=== PATIENT | female | born 1980 | race Caucasian/White ===

== ENCOUNTER 2020-11-28 12:40 | Outpatient (REF) | payer OTHER, SELFPAY ==
--- NOTE | ~2020-11-28 | MM_ITS ---
EXAMINATION: MM DIAGNOSTIC DIGITAL BREAST TOMOSYNTHESIS, RIGHT CLINICAL INFORMATION: Short interval follow-up probable benign calcifications right breast upper outer quadrant. The lifetime risk of breast cancer based on the Tyrer-Cuzick Model is 9%. COMPARISON: Mammography: 04/13/2020, 10/07/2019, 04/06/2019, 03/24/2019 (baseline, BI-RADS 0). TECHNIQUE: Digital breast tomosynthesis is performed in both the craniocaudal and mediolateral oblique views along with computer-aided detection (CAD). Synthesized 2D images are generated from the tomosynthesis. Additional magnification right CC and magnification right ML views are obtained. FINDINGS: The breasts are heterogeneously dense, which may obscure small masses (ACR BI-RADS breast composition Category c). The calcifications for follow-up anterior upper outer quadrant are increased in number from the initial diagnostic exam 04/06/2019. There are no definite layering calcifications in the grouped area. There are some incidental layering calcifications more anteriorly upper breast. Stereotactic sampling is recommended. The right breast shows no interval mass or architectural abnormality. The skin contours are smooth. Results are discussed with the patient at time of visit. Results and recommendation called to medical records supervisor (Bernadine) for Dr. Foreman on 11/28/2020. MM/MM tomosynthesis diagnostic RT IMPRESSION: The calcifications for follow-up anterior upper outer right breast are slightly increased in number and show no definite layering in the grouped area. ASSESSMENT: BI-RADS 4: Suspicious (subcategory 4A: Low suspicion for malignancy) RECOMMENDATION: Stereotactic sampling right breast calcifications anterior upper outer quadrant. This patient's information was entered into a reminder system with a target due date for their next mammogram.
== END 2020-11-28 12:41 | disposition home or self-care (01) ==
LOC: HO.MAMMO 12:40
PROVIDERS: PCP Internal Medicine Medical Oncology; Visit Provider Internal Medicine Medical Oncology
DX: R92.1 Mammographic calcification found on diagnostic imaging of breast (principal)
CPT/HCPCS: 77061; 77065

== ENCOUNTER 2020-12-13 09:54 | Outpatient (REF) | payer OTHER, SELFPAY ==
--- NOTE | ~2020-12-13 | MM_ITS ---
EXAMINATION: STEREOTACTIC TOMOSYNTHESIS-GUIDED VACUUM-ASSISTED BREAST BIOPSY, RIGHT SPECIMEN RADIOGRAPH, RIGHT POST PROCEDURE DIGITAL MAMMOGRAM, RIGHT CLINICAL INFORMATION: Increased tightly grouped calcifications anterior upper outer right breast, possibly fibroadenomatous change. COMPARISON: Mammography 11/28/2020, 12/13/2019, 10/07/2019, 04/06/2019, 03/24/2019. TECHNIQUE/PROCEDURE: Informed consent was obtained from the patient after discussion of the benefits, risks, and alternatives to biopsy today. Patient appeared to understand. Gave opportunity for questions. Patient signed consent form. BIOPSY TABLE: [employer] Prone Biopsy System. LESION: Tightly grouped calcifications anterior upper outer right breast. LOCAL ANESTHESIA: 5 mL 1% lidocaine; 10 mL 1% lidocaine with epinephrine. DERMATOTOMY: Single skin nestor dermatotomy performed. NEEDLE: [employer] 9-gauge vacuum assisted core biopsy device. APPROACH: craniocaudal. TARGETING: Digital breast tomosynthesis used for targeting. CORES: 8. CLIP: [employer] Buckle-shaped marker. SPECIMEN RADIOGRAPH: Specimen radiograph is taken in separate room using digital mammography. The index calcifications are in the excised cores. There are numerous calcifications in the cores. POST PROCEDURE UNILATERAL RIGHT MAMMOGRAPHY: The post biopsy mammogram is performed in separate room using separate digital mammography equipment from the biopsy procedure. 3D CC and 2D ML views are provided. The breasts are heterogeneously dense, which may obscure small masses (breast composition category: c). The clip marker is in position. The calcifications are markedly decreased at the biopsy site. No gross hematoma. The patient tolerated the procedure well. No immediate complications. Home instructions reviewed with the patient. Final pathology results are pending. MM/MM stereotactic biopsy RT IMPRESSION: 1. Digital tomosynthesis-guided core biopsy right breast with clip placement. 2. Specimen radiograph taken and post procedure mammogram. There is satisfactory positioning of the biopsy clip. 3. Final pathology results pending. An addendum report will be issued.
== END 2020-12-13 09:55 | disposition home or self-care (01) ==
LOC: HO.MAMMO 09:54
PROVIDERS: Visit Provider Surgery
DX: R92.1 Mammographic calcification found on diagnostic imaging of breast (principal)
CPT/HCPCS: 19081; 88305; A4648

== ENCOUNTER → 2020-12-20 08:37 | Outpatient (BNVA) | payer OTHER, SELFPAY | PROVIDERS: PCP Internal Medicine Medical Oncology; Referring Provider Internal Medicine Medical Oncology; Visit Provider Surgery | DX: R92.1 Mammographic calcification found on diagnostic imaging of breast (principal) ==

== ENCOUNTER 2021-01-04 09:05 | Day surgery (SDC) | payer OTHER, SELFPAY ==
[2020-12-31 14:45] VITALS: BMI 26.9
--- NOTE | 2021-01-02 12:53 | HO.ANESPROP2 ---
Documented by User: Aury Fowler 01/02/21 12:54 HPI - Anesthesia Eval Consult details Narrative: 40yo F for Right Breast Biopsy Needle Localization, Lumpectomy PMFSH Active Problems Active Problems: All Active Problems (Updated 12/20/20 @ 09:05 by Julian Desouza MD) Atypical hyperplasia of right breast (Acute) Breast calcification, right (Acute) Past Medical History Medical History Atypical hyperplasia of right breast Breast calcification, right Family History Family History Maternal Grandmother Lung cancer Surgical History Surgical History Hx of wisdom tooth extraction No pertinent past surgical history Social History Social History Do you presently have visiting nurse or other home services: No Alcohol intake: never Smoking Status: Never smoker Use of substances other than those prescribed or required for medical reasons: No Have you been hit, kicked, punched, or otherwise hurt by someone within the past year? If so, by whom?: No Are you DNR?: No Advance Directives Information Provided: No Recently lost weight without trying: No Eating poorly because of decreased appetite: No Nutrition Risks: No Nutritional Risk Patient : No Poor oral hygiene: No Meds Allergies Allergy/AdvReac Type Severity Reaction Status Date / Time No Known Allergies Allergy Mild NOT Verified 01/04/21 09:36 APPLICABLE Home Medications Medication Instructions Recorded Confirmed Last Taken Type No Known Home Meds 12/13/20 12/31/20 Unknown History Exam Exam Date and Time: January 02, 2021 1253 Height,Weight and Vital Signs: Height 5 ft 4 in Weight 71 kg Assessment and Plan Assessment Anesthesia Assessment: Chart Reviewed Documented by User: Arabella Snyder 01/04/21 10:16 PMFSH Past Medical History Medical History Atypical hyperplasia of right breast Breast calcification, right Family History Family History Maternal Grandmother Lung cancer Family history of problems with anesthesia: No Surgical History Surgical History Hx of wisdom tooth extraction No pertinent past surgical history History of Problems with Anesthesia: No Social History Social History Do you presently have visiting nurse or other home services: No Alcohol intake: never Smoking Status: Never smoker Use of substances other than those prescribed or required for medical reasons: No Have you been hit, kicked, punched, or otherwise hurt by someone within the past year? If so, by whom?: No Are you DNR?: No Advance Directives Information Provided: No Recently lost weight without trying: No Eating poorly because of decreased appetite: No Nutrition Risks: No Nutritional Risk Patient : No Poor oral hygiene: No Meds Allergies Allergy/AdvReac Type Severity Reaction Status Date / Time No Known Allergies Allergy Mild NOT Verified 01/04/21 09:36 APPLICABLE Home Medications Medication Instructions Recorded Confirmed Last Taken Type No Known Home Meds 12/13/20 12/31/20 Unknown History Exam Height,Weight and Vital Signs: Vital Signs Temp Pulse Resp BP Pulse Ox 01/04/21 09:36 98.2 F 72 16 169/95 H 99 Pertinent Lab Results Pertinent Lab Results: Lab Results 01/04/21 Range/Units 09:29 Urine Test NEGATIVE (NEGATIVE) Airway Mallampati Class: II TM Dist: >3cm Neck ROM: Full Loose/Missing/Broken Teeth: Yes (Molars missing) Heart: RRR Lungs: CTAB Assessment and Plan Assessment Anesthesia Assessment: Anesthesia Plan Discussed and Chart Reviewed Final Anesthetic Review NPO: Yes ASA Class: I Final Preanesthetic Review: No Changes in Pt Med Stat, Meds/Allgs Chart Reviewed, Consent Obtained/Reviewed and Anes Risks/Benef Reviewed Patient Risk: Low Procedure Risk: Low Assessment/Block/Sedation in SS: Assess/Block/Sedation-SS Anesthetic Plan Anesthetic Plan: GA Disposition: Standard PACU
[2021-01-04] VITALS (7 sets, daily range): BP systolic 97–169; BP diastolic 54–95; PULSE 62–85; RESP 16; TEMP 36.6–36.8; O2SAT 94–100
--- NOTE | ~2021-01-04 | MM_ITS ---
EXAMINATION: MM MAMMOGRAM GUIDED NEEDLE LOCALIZATION BREAST, RIGHT MM NEEDLE LOCALIZATION SPECIMEN FROM THE RIGHT BREAST CLINICAL INFORMATION: Right breast/epithelial atypia, focal on stereotactic biopsy 12/13/2020. COMPARISON: Mammography 12/13/2020, 11/28/2020, 04/13/2020, 10/07/2019, 04/06/2019, 03/24/2019 TECHNIQUE NEEDLE LOC: Proper informed consent is obtained from the patient after discussion of the procedure, potential risks and complications, and alternatives including declining the procedure today. Patient was given an opportunity for questions. The patient appeared to understand. The patient consented to the procedure and signed the consent form. GUIDANCE: Digital mammography. APPROACH: Lateral Medial. TARGET: Buckle-shaped clip marker upper outer quadrant right breast. ANESTHESIA: lidocaine 1%: 4 mL. LOCALIZATION MARKER: [place] [employer], 5 cm length. The skin is prepped and local anesthesia administered. The needle is positioned and position assessed with mammography. The wire is hooked into position. [place] needle protector placed. The patient tolerated the procedure well and had no immediate complication. Procedure findings discussed with Dr. Desouza. TECHNIQUE SPECIMEN RADIOGRAPH: Imaging of the excised specimen is performed using digital mammography in 2 views. FINDINGS SPECIMEN RADIOGRAPH: The specimen shows the needle and hookwire are delivered intact. The biopsy clip marker is identified adjacent to the needle and the specimen. Results were called to Dr. Julian Desouza in the operating room at the time of imaging. MM/MM needle loc RT IMPRESSION: 1. Status post right breast needle localization with wire hooked into position. 2. Post operative specimen radiograph obtained.
--- NOTE | 2021-01-04 09:33 | MHC.SHP ---
Pre-Procedural Eval Section B Chief Complaint: Atypical hyperplasia of right breast Allergies: Allergies Allergy/AdvReac Type Severity Reaction Status Date / Time No Known Allergies Allergy Mild NOT Verified 12/20/20 08:47 APPLICABLE Plan I have reviewed the history and physical and performed a pertinent physical examination on my patient. No changes have occurred unless specified.
[2021-01-04 09:36] LABS: UPreg QC Valid YES; Urine Pregnancy NEGATIVE (NEGATIVE)
[2021-01-04] MEDS: Lactated Ringers 1,000 ML 100 ML IVCONT (09:57)
--- NOTE | 2021-01-04 13:32 | W.PM.OPN ---
Operative Note Operative Note Date of Service: 01/04/21
--- NOTE | 2021-01-04 13:34 | W.PM.OPN ---
Operative Note Operative Note Date of Service: 01/04/21 Narrative: Preop diagnosis: Intraductal papilloma, right breast Postop diagnosis: Intraductal papilloma, right breast Procedure: Lumpectomy, right breast with needle localization Surgeon: Julian Desouza MD Geosciences Associate Professor: GARY Castellanos student The patient is a 40-year-old female who had undergone right breast biopsy which showed intraductal papilloma. She was therefore recommended to undergo lumpectomy to rule out associated high-grade pathology like DCIS. She understood the technique of this procedure of lumpectomy with needle localization. She was aware of the risks, benefits, and alternatives She was brought to the operating room placed supine on table under general anesthesia via laryngeal mask airway. The right breast was prepped draped in the usual sterile fashion. A surgical time-out was done. The patient received cefazolin 2 g IV preoperatively I had reviewed her needle loc films with the radiologist Dr. Smith prior to the procedure. The localizing needle was seen entering the lateral aspect of right breast going medially. I infiltrated this area with lidocaine 1 %. An incision was made on the skin using blade 15 tangential to the entrance of the needle. This was carried down through the full-thickness of the skin using electro cautery until the we entered breast tissue. I proceeded to sharply divide the breast tissue around the localizing needle with the curved Reynoso scissors. I proceeded with this dissection to include significant amounts of breast tissue surrounding the needle. We continued to dissect circumferentially, palpating around the specimen periodically to make sure that we were taking enough tissue surrounding the localizing needle. I proceeded to dissect posteriorly as well. I proceeded to jeromy the lateral aspect as well as the superior aspect of the specimen with sutures. We had to cauterize periodically in view of some oozing. We continued to dissect slowly all around the surrounding breast tissue of the localizing needle until we were able to completely deliver the specimen. This was sent for immediate re-ray. I then irrigated the excision biopsy site. I cauterized oozing areas. I observed for hemostasis. Once hemostasis was ensured, I proceeded to reappose the deep breast tissue with interrupted simple Dexon 3-0 sutures. Skin closure was achieved with subcuticular running Dexon 4-0 stitch. I infiltrated the area with Marcaine 0.5% postop analgesia. Steri-Strips and dressings were applied. We waited until we received a phone call from the radiologist stating that the re-ray images confirmed the presence of the localizing clip and the entire localizing needle was intact. There appeared to have good margins around the needle radiographically. The procedure was then completed. The patient tolerated the procedure well. There were no complications noted. Initial and final counts of sponges and instruments were correct. Estimated blood loss about 40 cc. She was extubated without difficulty and transferred to the recovery room with stable vital signs.
--- NOTE | 2021-01-04 13:46 | P.BOP_ITS ---
Brief Operative Note Date of Service: 01/04/21 Pre-op diagnosis: Intraductal papilloma right breast Post-op diagnosis: same Procedure: Lumpectomy with needle localization right breast Surgeon: Julian Desouza MD Anesthesia: GLMA Was an Front Office Administrator used for this Procedure?: No Estimated blood loss (mL): 40 Pathology: other (Lumpectomy ) Condition: stable Disposition: PACU
[2021-01-04] MEDS: Ketorolac Tromethamine 15 MG/ML VIAL IVPUSH (14:00)
== END 2021-01-04 15:41 | disposition home or self-care (01) ==
PROVIDERS: Nurse Practitioner; PCP Internal Medicine Medical Oncology; Visit Provider Surgery
PROC: (CPT 19301; principal; 2021-01-04 11:30)
PROC: (CPT 19301; 2021-01-04 11:30)
DX: D24.1 Benign neoplasm of right breast (principal)
CPT/HCPCS: 19301; 19281; 81025; 88307; 88329; A4648; J0690; J1100; J1885; J2250; J2405; J3010

== ENCOUNTER → 2021-01-16 12:17 | Outpatient (BNVA) | payer OTHER, SELFPAY | PROVIDERS: PCP Internal Medicine Medical Oncology; Visit Provider Surgery ==

== ENCOUNTER 2021-12-23 14:30 | Outpatient (REF) | payer OTHER, SELFPAY ==
--- NOTE | ~2021-12-23 | MM_ITS ---
EXAMINATION: MM SCREENING DIGITAL BREAST TOMOSYNTHESIS, BILATERAL CLINICAL INFORMATION: Screening. Asymptomatic. Right stereotactic biopsy 12/13/2020 with subsequent excision 01/04/2021 (patchy flat epithelial atypia, no carcinoma, margins negative. Background fibroadenoma and fibrocystic changes). COMPARISON: Mammography: 01/04/2021, 12/13/2020, 11/28/2020, 04/13/2020, 10/07/2019, 04/06/2019, 03/24/2019. TECHNIQUE: Digital breast tomosynthesis is performed in both the craniocaudal and mediolateral oblique views along with computer-aided detection (CAD). Synthesized 2D images are generated from the tomosynthesis. FINDINGS: The breasts are heterogeneously dense, which may obscure small masses (ACR BI-RADS breast composition Category c). Breast tissue composition borders on average fibroglandular. There are post therapy changes on the right with minor scarring mid upper breast. Neither breast shows significant mass or architectural abnormality or abnormal calcifications. The axilla and skin contours are unremarkable. No significant changes. MM/MM tomosynthesis screening BI IMPRESSION: -No mammographic evidence of malignancy. -Minor benign scarring right breast. ASSESSMENT: BI-RADS 2: Benign RECOMMENDATION: Routine annual mammography screening. This patient's information was entered into a reminder system with a target due date for their next mammogram.
== END 2021-12-23 14:31 | disposition home or self-care (01) ==
LOC: HO.MAMMO 14:30
PROVIDERS: PCP Internal Medicine Medical Oncology; Visit Provider Internal Medicine Medical Oncology
DX: Z12.31 Encounter for screening mammogram for malignant neoplasm of breast (principal)
CPT/HCPCS: 77063; 77067

== ENCOUNTER 2023-01-08 07:48 | Outpatient (REF) | payer OTHER, SELFPAY ==
[2023-01-08 11:20] LABS: MANUAL DIFF FLAG NO
[2023-01-08 11:30] LABS: Basophils Absolute Auto 0.1 X10*3/uL (0.0-0.2); Basophils Percent Auto 1.9 % (0-2); Eosinophils Absolute Auto 0.2 X10*3/uL (0.0-0.4); Eosinophils Percent Auto 3.4 % (0-4); Hematocrit 30.7 % (37.0-47.0); Hemoglobin 9.2 g/dl (12.0-16.0); Imm Gran Abs Auto 0.02 X10*3/uL (0.00-0.03); Imm Gran Pct Auto 0.3 % (0.0-0.4); Lymphocytes Percent Auto 31.3 % (20-40); Mean Corpuscular Hemoglobin 22.4 pg (27.0-33.0); Mean Corpuscular Volume 74.9 fL (80.0-98.0); Mean Platelet Volume 9.5 fL (9.4-12.3); Monocytes Absolute Auto 0.4 X10*3/uL (0.1-1.2); Monocytes Percent Auto 6.8 % (2-11); Neutrophils Absolute Auto 3.6 x10*3/uL (2.0-8.3); Neutrophils Percent Auto 56.3 % (45-73); Platelet Count 453 X10*3/uL (160-400); Red Cell Distribution Width 16.8 % (11.0-16.0); White Blood Count 6.5 X10*3/uL (4.8-10.8)
[2023-01-08 11:42] LABS: Alanine Aminotransferase 13 U/L (0-31); Albumin Level 4.3 g/dL (3.5-5.0); Alkaline Phosphatase 62 U/L (39-117); Anion Gap 10 (12-20); Aspartate Amino Transferase 16 U/L (5-31); Bilirubin Total 0.5 mg/dL (0.0-1.0); Blood Urea Nitrogen 12 mg/dL (9-16); Calcium 9.7 mg/dL (8.4-10.2); Carbon Dioxide 24 mmol/L (22-29); Chloride 107 mmol/L (96-108); Cholesterol 217 mg/dL; Estimated Glomerular Filt Rate > 60; Glucose Fasting 93 mg/dL (60-99); HDL Cholesterol 62 mg/dL; LDL Cholesterol Calculated 141 mg/dl; Potassium 4.6 mmol/L (3.3-5.1); Sodium 136 mmol/L (135-145); Total Protein 6.9 g/dL (6.5-8.0); Triglycerides 70 mg/dL
== END 2023-01-08 07:49 | disposition home or self-care (01) ==
LOC: HO.HMGCLDS 07:48
PROVIDERS: PCP Internal Medicine Medical Oncology; Visit Provider Internal Medicine Medical Oncology
DX: E66.3 Overweight (principal); F41.9 Anxiety disorder, unspecified; Z91.09 Other allergy status, other than to drugs and biological substances
CPT/HCPCS: 36415; 80053; 80061; 85025

== ENCOUNTER 2023-05-14 08:58 | Outpatient (REF) | payer OTHER, SELFPAY | END 2023-05-14 08:59 | disposition home or self-care (01) | LOC: HO.MAMMO 08:58 | PROVIDERS: PCP Internal Medicine Medical Oncology; Visit Provider Internal Medicine Medical Oncology | DX: Z12.31 Encounter for screening mammogram for malignant neoplasm of breast (principal) | CPT/HCPCS: 77063; 77067 ==

== ENCOUNTER → 2023-05-14 09:00 | Outpatient (BNV) | payer OTHER, SELFPAY | PROVIDERS: PCP Internal Medicine Medical Oncology; Visit Provider Radiology Diagnostic Radiology | DX: Z12.31 Encounter for screening mammogram for malignant neoplasm of breast (principal) | CPT/HCPCS: 77063; 77067 ==

== ENCOUNTER 2023-07-08 06:34 | Emergency (ER) | payer OTHER, SELFPAY ==
[2023-07-08] VITALS (15 sets, daily range): BP systolic 132–178; BP diastolic 73–94; PULSE 59–82; RESP 10–32; TEMP 36.1–37.6; O2SAT 92–100; BMI 60.5
--- NOTE | ~2023-07-08 | US_ITS ---
EXAMINATION: US PELVIS CLINICAL INFORMATION: Vaginal bleeding and anemia COMPARISON: None available. TECHNIQUE: Ultrasound of the pelvis is performed using both transabdominal and transvaginal transducers along with Doppler. Transvaginal imaging is performed due to inadequate visualization transabdominally. FINDINGS: Uterus: The uterus is anteverted, anteflexed and measures 10.5 x 6.1 x 7.4 cm. There are at least 3 hypoechoic areas consistent with fibroid. The largest along the posterior body of uterus measures 5.0 x 3.5 x 3.9 cm. A small lesion along the right superior fundus measures 1.2 x 1.2 x 1.9 cm. Third lesion along the right upper lateral uterus measures 2.6 x 2.5 x 3.1 cm. No additional lesions seen The double wall endometrial thickness measures 0.4 cm. Adnexa: Both ovaries are visualized. There is normal color flow to the adnexa. There is no ovarian torsion. There is no pelvic ascites or fluid collection. Right ovary measures 4.3 x 3.6 x 2.7) cm. Volume 22.7 mL. There is anechoic cyst measuring 2.9 x 2.3 x 2.2 cm. Left ovary measures 4.1 x 2.6 x 2.7 cm. Volume 15.1 cm. There is a complex anechoic cyst with internal septation measuring 2.4 x 1.7 x 2.4 cm. There is no free fluid in cul-de-sac. US/US pelvic and transvaginal IMPRESSION: Several uterine fibroids. Complex left ovary and a simple right ovary cyst.
--- NOTE | ~2023-07-08 | CT_ITS ---
EXAMINATION: CT ELBOW WITHOUT CONTRAST, LEFT CLINICAL INFORMATION: Fall. Pain. Fracture. COMPARISON: Left elbow and forearm radiographs done earlier the same day. TECHNIQUE: Contiguous axial CT images of the left elbow were obtained without contrast. Multiplanar reformats were provided and reviewed. This CT examination was performed using dose optimization techniques as appropriate, variously including the following: *Automated exposure control *Adjustment of mA and/or kV according to patient size (this includes techniques or standardized protocols for targeted exams where dose is matched to indication/reason for exam; i.e. extremities or head) *Use of iterative reconstruction technique DOSE: 125 mGy-cm. FINDINGS: Comminuted fracture of the distal humerus with an oblique component which extends from the medial cortex to the central aspect of the articular surface. The fracture gap measures up to 0.9 cm in ML dimension along the articular surface. Distal displacement of the lateral fracture fragment measuring up to 1.0 cm in craniocaudal dimension along the articular surface. There is comminution of the fracture with a transverse fracture line through the base of the capitellum, as well as an additional transverse fracture line through the supracondylar region medially. Ventral and proximal dislocation of the radial head in relation to the capitellum without a definite radial head fracture. Comminuted and displaced proximal ulnar diametaphyseal fracture with a dominant oblique component as well as a resultant posterior butterfly fracture fragment which measures up to 8.2 cm in length. The main fracture gap measures up to 1.2 cm in greatest dimension. Moderate elbow joint effusion with surrounding soft tissue swelling. The visualized muscles and tendons are grossly intact, however, evaluation severely limited on CT examination. CT/CT elbow LT wo IV con IMPRESSION: 1. Comminuted fracture of the distal humerus with an oblique component extending from the medial cortex to the central aspect of the articular surface. The fracture gap measures up to 0.9 cm along the articular surface. Distal displacement of the lateral fracture fragment measuring up to 1.0 cm along the articular surface. 2. Comminuted and displaced proximal ulnar diametaphyseal fracture with a dominant oblique component as well as a resultant posterior butterfly fracture fragment. 3. Ventral and proximal dislocation of the radial head in relation to the capitellum without a definite radial head fracture. 4. Moderate elbow joint effusion with surrounding soft tissue swelling.
--- NOTE | ~2023-07-08 | XR_ITS ---
EXAMINATION: XR ELBOW, LEFT CLINICAL INFORMATION: Left elbow fracture. COMPARISON: CT and x-ray Left elbow 07/08/2023 TECHNIQUE: AP, lateral, and oblique views of the left elbow. FINDINGS: Again visualized without contrast left elbow exam reveals comminuted fracture distal humerus extending to the articular surface better seen on CT exam. Oblique comminuted fracture proximal ulnar metaphyseal with mild displacement. Mild anterior dislocation of the radial head XR/XR elbow LT min 3V IMPRESSION: 1. Comminuted fracture distal humerus with intra-articular extension. 2. Oblique comminuted fracture proximal ulnar metaphysis with mild displacement. 3. Mild anterior dislocation of radial head 4. No additional fractures seen.
--- NOTE | ~2023-07-08 | XR_ITS ---
EXAMINATION: XR ELBOW, LEFT XR FOREARM, LEFT CLINICAL INFORMATION: Fall injury. COMPARISON: None available. TECHNIQUE: AP, lateral, and oblique views of the left elbow. AP and lateral views of the left forearm were obtained. XR/XR forearm LT 2V FINDINGS/IMPRESSION: The study is somewhat limited, as no true lateral views are submitted. There are comminuted fractures of the ulna and distal humerus, with dislocation of the radial head. The comminuted ulnar fracture involves the proximal diaphysis. There is approximately 40 degree medial angulation of the main distal fragment relative to proximal fragment. The distal fragment is displaced medially approximately one half bone shaft's width relative to the proximal fragment. The fracture fragments may override approximately 1-1.5 cm, although exact measurement is somewhat difficult. There is a complex, comminuted intercondylar fracture of the humerus. The fracture fragments appear displaced up to approximately 0.6 cm. The radial head is dislocated laterally relative to the distal humerus. A component of the dislocation is also probably anterior, although this is difficult to ascertain, as no true lateral view is submitted. Question nondisplaced fracture at the dorsal aspect of the distal radial metaphysis seen on one view only.
--- NOTE | ~2023-07-08 | XR_ITS ---
EXAMINATION: XR ELBOW, LEFT XR FOREARM, LEFT CLINICAL INFORMATION: Fall injury. COMPARISON: None available. TECHNIQUE: AP, lateral, and oblique views of the left elbow. AP and lateral views of the left forearm were obtained. XR/XR elbow LT 2V FINDINGS/IMPRESSION: The study is somewhat limited, as no true lateral views are submitted. There are comminuted fractures of the ulna and distal humerus, with dislocation of the radial head. The comminuted ulnar fracture involves the proximal diaphysis. There is approximately 40 degree medial angulation of the main distal fragment relative to proximal fragment. The distal fragment is displaced medially approximately one half bone shaft's width relative to the proximal fragment. The fracture fragments may override approximately 1-1.5 cm, although exact measurement is somewhat difficult. There is a complex, comminuted intercondylar fracture of the humerus. The fracture fragments appear displaced up to approximately 0.6 cm. The radial head is dislocated laterally relative to the distal humerus. A component of the dislocation is also probably anterior, although this is difficult to ascertain, as no true lateral view is submitted. Question nondisplaced fracture at the dorsal aspect of the distal radial metaphysis seen on one view only.
--- NOTE | ~2023-07-08 | XR_ITS ---
EXAMINATION: XR ELBOW, LEFT CLINICAL INFORMATION: Status post reduction. COMPARISON: Left elbow 07/08/2023 at 6:50 AM. TECHNIQUE: Single lateral view of the left elbow. FINDINGS: Comminuted fracture proximal ulna and a distal humeral fracture with intra-articular extension has been stabilized with left elbow in a hard cast. XR/XR elbow LT 2V IMPRESSION: Stabilized comminuted proximal ulnar and distal humeral fractures with intra-articular extension. The left elbow is in a hard cast. Patient is status post reduction.
--- NOTE | 2023-07-08 07:17 | ED.EXTPRO ---
HPI - Extremity Problem General Chief complaint: Extremity Injury, Upper Stated complaint: fall l arm inj Time Seen by Provider: 07/08/23 07:14 Source: patient Mode of arrival: ambulatory Limitations: no limitations History of Present Illness HPI Narrative: 42-year-old female otherwise healthy presented with left elbow pain after she fell. Patient was going down the hill on icy sidewalk lost her balance fell backward tried to use the fall by hyperextending her both elbow complaining of left elbow pain and deformity. Patient is a right-handed. Related Data Previous Rx's Medication Instructions Recorded ibuprofen 600 mg tablet 600 mg PO Q6H PRN pain #30 tabs 01/04/21 oxycodone-acetaminophen 5 mg-325 1 - 2 tab PO Q4-6H PRN pain #30 01/04/21 mg tablet (Percocet) tabs oxycodone 5 mg tablet 5 mg PO Q8H PRN pain #14 tabs 07/08/23 Allergies Allergy/AdvReac Type Severity Reaction Status Date / Time No Known Allergies Allergy Mild NOT Verified 01/04/21 09:36 APPLICABLE Review of Systems Review of Systems: All other systems are reviewed and are negative Constitutional: Reports as per HPI and Reports no additional constitutional complaints Eyes: Reports as per HPI and Reports no additional eye complaints Reports system reviewed and no additional complaints, except as documented Cardiovascular: Reports as per HPI and Reports no additional cardiovascular complaints Respiratory: Reports as per HPI and Reports no additional respiratory complaints Gastrointestinal: Reports as per HPI and Reports no additional gastrointestinal complaints Genitourinary: Reports no additional female genitourinary complaints Musculoskeletal: Reports no additional musculoskeletal complaints Skin/Breast: Reports system reviewed and no additional complaints, except as docu Psychiatric: Reports no additional psychiatric complaints Endocrine: Reports no additional endocrine complaints Hematologic/Lymphatic: Reports no additional hematologic/lymphatic complaints Allergic/Immunologic: Reports no additional allergic/immunologic complaints Reports system reviewed and no additional complaints, except as documented and Reports Abnormal speech present! [facility] Past Medical History Medical History Atypical hyperplasia of right breast Breast calcification, right Surgical History Hx of wisdom tooth extraction No pertinent past surgical history Family History Family History Maternal Grandmother Lung cancer Social History Do you presently have visiting nurse or other home services: No Alcohol intake: never Physical Exam Vital Signs: Vital Signs: Last Vital Signs Temp 99.6 F 07/08/23 13:10 Pulse 72 07/08/23 13:10 Resp 17 07/08/23 13:10 BP 158/84 H 07/08/23 13:10 Pulse Ox 100 07/08/23 12:16 O2 Del Method Room Air 07/08/23 12:16 Oxygen Flow Rate 2 07/08/23 10:46 BMI result Body Mass Index 60.5 Vital signs have been reviewed and appear to be correct. Blood pressure elevated. Heart rate normal. Respiratory rate normal. Temperature normal. Oxygen saturation normal. Appearance: Alert. Oriented X3. No acute distress. Head: Normal external exam. Normocephalic. Atraumatic. No Srivastava signs noted. No raccoon eyes noted Eyes: PERRLA. EOMI. Conjunctiva and sclera normal. Eyelids normal. ENT: TM's Normal. Pharynx normal. Uvula midline. Moist mucous membranes. No trismus noted. No drooling noted. No muffled voice noted. Neck: Normal inspection. Neck supple. FROM. No adenopathy. Thyroid Normal. No meningeal signs. No neck mass noted. CVS: Normal heart rate and rhythm. Heart sound normal. No murmurs noted. Pulses normal throughout. Respiratory: No respiratory distress. Painless inspiration. Breath sounds normal. No wheezes/rales/rhonchi noted. Chest nontender. No accessory muscle usage noted or decreased air movement noted. Abdomen: Soft and nontender. Bowel sounds normal in all 4 quadrants. No distention noted. No organomegaly noted. No visible injury noted. Back: No CVA tenderness. Full range of motion noted. Skin: Skin warm and dry. Normal skin color. Normal skin turgor. No rashes/lesions/lacerations noted. Extremities: left elbow: Increased tenderness and deformity of the left elbow, neurovascularly intact, left elbow is held in extension position with very painful range of motion. Neuro: Oriented X 3. Cranial nerve exam: II-XII are grossly intact No motor deficit. No sensory deficit. Reflexes normal. Course Reevaluation(s) Reevaluation #1: Routine lab before conscious sedation showed severe ischemia patient stated that she has been having heavy menstruation for the past 4 weeks now it is slowing down patient do not have web site specialist to follow up with will provide Dr. Valdes's office information. because patient Now is reporting exertional dyspnea will transfuse 1 unit of blood And follow-up with Dr. Valdes. Left elbow reduction patient will follow-up with Dr. Luque. Time: 10:13 Reevaluation #2: The case was discussed with Dr. Valdes who reviewed the ultrasound patient was given his office information and will follow-up with him as an outpatient patient after blood transfusion is hemodynamically stable. Patient also will follow-up with Dr. Luque for her left elbow fracture management. Patient was provided oxycodone for pain control. Continue with left elbow immobilization Time: 14:20 Medications Administered Discontinued Medications Generic Name Dose Route Start Last Admin Trade Name Freq PRN Reason Stop Dose Admin Hydromorphone HCl 2 mg 07/08/23 07:26 07/08/23 07:53 Hydromorphone Hcl 2 Mg/Ml Vial IM 07/08/23 07:27 2 mg ONCE ONE Administration Protocol Hydromorphone HCl 2 mg 07/08/23 07:42 07/08/23 07:54 Hydromorphone Hcl 2 Mg/Ml Vial IVPUSH 07/08/23 07:43 Not Given ONCE ONE Protocol Hydromorphone HCl 1 mg 07/08/23 08:45 07/08/23 09:01 Hydromorphone Hcl 1 Mg/Ml Syringe IVPUSH 07/08/23 08:46 1 mg ONCE ONE Administration Protocol Hydromorphone HCl 1 mg 07/08/23 12:02 07/08/23 12:16 Hydromorphone Hcl 1 Mg/Ml Syringe IVPUSH 07/08/23 12:03 1 mg ONCE ONE Administration Protocol Sodium Chloride 100 mls @ 100 mls/hr 07/08/23 10:16 07/08/23 13:04 Ns IV 07/08/23 11:15 100 mls/hr ONCE ONE Administration Propofol 100 mg 07/08/23 10:02 07/08/23 11:01 Propofol 200 Mg/20 Ml Vial IVPUSH 07/08/23 10:03 100 mg ONCE ONE Administration Medical Decision Making Differential Diagnosis Differential Diagnoses: The differential diagnosis associated with the presentation includes ( mechanical fall, severe anemia, electrolyte abnormality, elbow dislocation, elbow fracture.) Admission/Observation Consideration of admission/observation: Escalation of care including admission/observation considered Consult Healthcare Provider Management of the patient was discussed with: Gin Operator ( Dr. Valdes / Dr. Luque) Lab Data MDM Lab Attestation statement: I reviewed the patient's lab results. 07/08/23 09:16 07/08/23 09:16 Labs: Lab Results 07/08/23 07/08/23 Range/Units 09:16 11:06 WBC 20.5 H (4.8-10.8) X10*3/uL RBC 3.57 L (4.20-5.50) X10*6/uL Hgb 7.1 L D (12.0-16.0) g/dl Hct 24.6 L (37.0-47.0) % MCV 68.9 L (80.0-98.0) fL MCH 19.9 L (27.0-33.0) pg MCHC 28.9 L (31.0-35.0) g/dl RDW 18.0 H (11.0-16.0) % Plt Count 296 D (160-400) X10*3/uL MPV 9.8 (9.4-12.3) fL Immature Gran % (Auto) 0.6 H (0.0-0.4) % Neut % (Auto) 91.0 H (45-73) % Lymph % (Auto) 4.5 L (20-40) % [place] % (Auto) 3.3 (2-11) % Eos % (Auto) 0.1 (0-4) % Baso % (Auto) 0.5 (0-2) % Lymph # (Auto) 0.9 L (1.2-4.9) X10*3/uL [place] # (Auto) 0.7 (0.1-1.2) X10*3/uL Eos # (Auto) 0.0 (0.0-0.4) X10*3/uL Baso # (Auto) 0.1 (0.0-0.2) X10*3/uL Abs Immat Gran (auto) 0.13 H (0.00-0.03) X10*3/uL Absolute Neuts (auto) 18.6 H (2.0-8.3) x10*3/uL Absolute Nucleated RBC 0.000 (0.0-0.012) X10*3/uL Nucleated RBC % (auto) 0.0 (0.0-0.2) /100WBC Smear Tech's Comments VERIFIED Sodium 138 (135-145) mmol/L Potassium 4.0 (3.3-5.1) mmol/L Chloride 108 (96-108) mmol/L Carbon Dioxide 24 (22-29) mmol/L Anion Gap 10 L (12-20) BUN 13 (9-16) mg/dL Creatinine 0.66 (0.5-1.4) mg/dL Estim Creat Clear Calc 166.2 Estimated GFR > 60 Random Glucose 131 H (60-115) mg/dL Calcium 9.5 (8.4-10.2) mg/dL Blood Type O Positive Antibody Screen NEGATIVE Crossmatch See Detail Independent Interpretation I performed an independent interpretation of an: Plain X-Ray ( left elbow x-ray: Fracture dislocation) and Ultrasound ( uterine line fibroids, complex left ovarian cyst) Radiology Impression Discussion of test interpretation with radiology: I have reviewed the radiologist's reading. Procedures Procedural Sedation Indication: fracture/dislocation reduction ( of left elbow done by Dr. Luque) ASA Class: I Mallampati Class: I Time of Last PO Intake: 06:00 Preparation: property assessment monitor applied, pulse oximeter, capnometry used, supplemental O2 applied, reversal agents at bedside, suction/airway equipment at bedside and IV secured IV Propofol dose (mg): 100 Patient Tolerated Procedure: well Complications: none Critical Care Time Critical Care Time Critical Care Time: Yes Total Critical Care Time: 60 Attestation: I spent 60 minutes providing critical care service to the patient, this including time spent at the bedside to evaluate the patient, reassess the patient, monitoring vital signs, review labs, and radiographic studies, counseling the patient/family, discussing the case with consultants, disposition the patient. Discharge Plan Discharge Clinical Impression: Menorrhagia, Anemia Closed fracture dislocation of elbow Qualifiers: Encounter type: initial encounter Laterality: left Qualified Code(s): S42.402A - Unspecified fracture of lower end of left humerus, initial encounter for closed fracture Patient Disposition: Home, Self-Care Instructions: Elbow Fracture (ED), Anemia (ED) Additional Instructions: follow-up with Dr. Valdes for your vaginal bleeding. Follow-up with Dr. Luque to manage 2 left elbow fracture. Prescriptions: New oxycodone 5 mg tablet 5 mg PO Q8H PRN (Reason: pain) Qty: 14 0RF Rx Instructions: Partial Fill upon patient request. No Action oxycodone-acetaminophen [Percocet] 5-325 mg tablet 1 - 2 tab PO Q4-6H PRN (Reason: pain) Qty: 30 0RF ibuprofen 600 mg tablet 600 mg PO Q6H PRN (Reason: pain) Qty: 30 0RF Referrals: Gaurav Foreman MD [Primary Care Provider] - Jim Luque MD [Physician] - Brian Valdes MD [Physician] -
[2023-07-08] MEDS: HYDROmorphone HCl 2 MG/ML VIAL IM (07:53)
[2023-07-08] MEDS: HYDROmorphone HCl 1 MG/ML SYRINGE IVPUSH ×2 (09:01→12:16)
--- NOTE | 2023-07-08 09:10 | MHC.EDTECH ---
This pct attempted to draw labs on patient but the patients veins blow easily. RN Aware
[2023-07-08 09:29] LABS: Basophils Absolute Auto 0.1 X10*3/uL (0.0-0.2); Basophils Percent Auto 0.5 % (0-2); Eosinophils Percent Auto 0.1 % (0-4); Hematocrit 24.6 % (37.0-47.0); Hemoglobin 7.1 g/dl (12.0-16.0); Imm Gran Abs Auto 0.13 X10*3/uL (0.00-0.03); Imm Gran Pct Auto 0.6 % (0.0-0.4); Lymphocytes Absolute Auto 0.9 X10*3/uL (1.2-4.9); Lymphocytes Percent Auto 4.5 % (20-40); MANUAL DIFF FLAG SCAN; Mean Corpuscular HGB Conc 28.9 g/dl (31.0-35.0); Mean Corpuscular Hemoglobin 19.9 pg (27.0-33.0); Mean Corpuscular Volume 68.9 fL (80.0-98.0); Mean Platelet Volume 9.8 fL (9.4-12.3); Monocytes Absolute Auto 0.7 X10*3/uL (0.1-1.2); Monocytes Percent Auto 3.3 % (2-11); Neutrophils Absolute Auto 18.6 x10*3/uL (2.0-8.3); Platelet Count 296 X10*3/uL (160-400); Red Blood Count 3.57 X10*6/uL (4.20-5.50); SCAN SMEAR FLAG 1; White Blood Count 20.5 X10*3/uL (4.8-10.8)
[2023-07-08 09:34] LABS: Anion Gap 10 (12-20); Blood Urea Nitrogen 13 mg/dL (9-16); Calcium 9.5 mg/dL (8.4-10.2); Carbon Dioxide 24 mmol/L (22-29); Chloride 108 mmol/L (96-108); Creatinine Clr Calc Pharmacy 166.2; Estimated Glomerular Filt Rate > 60; Glucose Random 131 mg/dL (60-115); Sodium 138 mmol/L (135-145)
[2023-07-08 10:06] LABS: SLIDE REVIEW VERIFIED
[2023-07-08] MEDS: propofoL 200 MG/20 ML VIAL 100 MG IVPUSH (11:01)
--- NOTE | 2023-07-08 12:00 | PC.NURSE ---
pt moved into a pelvic stretcher
--- NOTE | 2023-07-08 13:06 | PC.NURSE ---
due to fx in pts L arm and the arm is splinted, pt a hard poke, pt withonly one IV line in the RAC
--- NOTE | 2023-07-08 14:25 | P.CONOB_ITS ---
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 The patient gives a history of heavy vaginal bleeding over the last few weeks currently her menstrual cycle has slowed down markedly and is currently only spotting. H&H was found to be 7.1/24.6. Urine test done was negative. 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 Wilkerson to be benign abdominal exam ASSISTANT PROJECT ENGINEER - Results Labs 07/08/23 09:16 07/08/23 09:16 Labs: Short CBC 07/08/23 Range/Units 09:16 WBC 20.5 H (4.8-10.8) X10*3/uL Hgb 7.1 L D (12.0-16.0) g/dl Hct 24.6 L (37.0-47.0) % Plt Count 296 D (160-400) X10*3/uL BMP 07/08/23 09:16 Sodium 138 Potassium 4.0 Chloride 108 Carbon Dioxide 24 BUN 13 Creatinine 0.66 Calcium 9.5 Antibody Screen Antibody Screen NEGATIVE 07/08/23 11:06 Imaging US - abdomen: Radiologist's impression: ITS Impressions Elbow X-Ray 07/08/23 06:54 FINDINGS/IMPRESSION: The study is somewhat limited, as no true lateral views are submitted. There are comminuted fractures of the ulna and distal humerus, with dislocation of the radial head. The comminuted ulnar fracture involves the proximal diaphysis. There is approximately 40 degree medial angulation of the main distal fragment relative to proximal fragment. The distal fragment is displaced medially approximately one half bone shaft's width relative to the proximal fragment. The fracture fragments may override approximately 1-1.5 cm, although exact measurement is somewhat difficult. There is a complex, comminuted intercondylar fracture of the humerus. The fracture fragments appear displaced up to approximately 0.6 cm. The radial head is dislocated laterally relative to the distal humerus. A component of the dislocation is also probably anterior, although this is difficult to ascertain, as no true lateral view is submitted. Question nondisplaced fracture at the dorsal aspect of the distal radial metaphysis seen on one view only. Forearm X-Ray 07/08/23 06:54 FINDINGS/IMPRESSION: The study is somewhat limited, as no true lateral views are submitted. There are comminuted fractures of the ulna and distal humerus, with dislocation of the radial head. The comminuted ulnar fracture involves the proximal diaphysis. There is approximately 40 degree medial angulation of the main distal fragment relative to proximal fragment. The distal fragment is displaced medially approximately one half bone shaft's width relative to the proximal fragment. The fracture fragments may override approximately 1-1.5 cm, although exact measurement is somewhat difficult. There is a complex, comminuted intercondylar fracture of the humerus. The fracture fragments appear displaced up to approximately 0.6 cm. The radial head is dislocated laterally relative to the distal humerus. A component of the dislocation is also probably anterior, although this is difficult to ascertain, as no true lateral view is submitted. Question nondisplaced fracture at the dorsal aspect of the distal radial metaphysis seen on one view only. Elbow X-Ray 07/08/23 08:06 IMPRESSION: Stabilized comminuted proximal ulnar and distal humeral fractures with intra-articular extension. The left elbow is in a hard cast. Patient is status post reduction. Elbow CT 07/08/23 08:50 IMPRESSION: 1. Comminuted fracture of the distal humerus with an oblique component extending from the medial cortex to the central aspect of the articular surface. The fracture gap measures up to 0.9 cm along the articular surface. Distal displacement of the lateral fracture fragment measuring up to 1.0 cm along the articular surface. 2. Comminuted and displaced proximal ulnar diametaphyseal fracture with a dominant oblique component as well as a resultant posterior butterfly fracture fragment. 3. Ventral and proximal dislocation of the radial head in relation to the capitellum without a definite radial head fracture. 4. Moderate elbow joint effusion with surrounding soft tissue swelling. Elbow X-Ray 07/08/23 10:48 IMPRESSION: 1. Comminuted fracture distal humerus with intra-articular extension. 2. Oblique comminuted fracture proximal ulnar metaphysis with mild displacement. 3. Mild anterior dislocation of radial head 4. No additional fractures seen. Pelvic/Transvag US 07/08/23 12:18 IMPRESSION: Several uterine fibroids. Complex left ovary and a simple right ovary cyst. Assessment and Plan (1) Abnormal uterine bleeding (AUB): Status: Acute Recommended to Dr. Wilkerson the following: Since the patient is not currently having any vaginal bleeding, recommend blood transfusion for her acute anemia, close outpatient follow-up for AUB workup including endometrial biopsy to rule out endometrial pathology including endometrial hyperplasia and/or malignancy and further management (2) Complex ovarian cyst: Status: Acute The differential diagnosis includes the following but not limited to: benign and malignant gynecological and non-gynecological causes. The patient needs a close follow-up in the office for further management. I spent over 20 minute reviewing the chart, communicating to the emergency room provider and documenting in the medical record
[2023-07-08] MEDS: oxyCODONE HCl Immed Release 5 MG TABLET PO (15:00)
== END 2023-07-08 17:19 | disposition home or self-care (01) ==
PROVIDERS: Emergency Provider Emergency Medicine; PCP Internal Medicine Medical Oncology
DX: N92.0 Excessive and frequent menstruation with regular cycle (principal); D64.9 Anemia, unspecified; S42.402A Unspecified fracture of lower end of left humerus, initial encounter for closed fracture; S52.002A Unspecified fracture of upper end of left ulna, initial encounter for closed fracture; S53.005A Unspecified dislocation of left radial head, initial encounter; W19.XXXA Unspecified fall, initial encounter; Y93.9 Activity, unspecified; Y92.9 Unspecified place or not applicable; Y99.9 Unspecified external cause status; M25.522 Pain in left elbow; R06.00 Dyspnea, unspecified; N83.202 Unspecified ovarian cyst, left side; D25.9 Leiomyoma of uterus, unspecified; M25.422 Effusion, left elbow
CPT/HCPCS: 36415; 36430; 73070; 73080; 73090; 73200; 76830; 76856; 80048; 85025; 86850; 86900; 86901; 86923; 96361; 96372; 96374; 96375; 96376; 99152; 99285; J1170; J2704; P9016

== ENCOUNTER → 2023-07-08 07:02 | Outpatient (BNV) | payer OTHER, SELFPAY | PROVIDERS: Emergency Provider Emergency Medicine; PCP Internal Medicine Medical Oncology; Visit Provider Obstetrics & Gynecology | DX: N93.9 Abnormal uterine and vaginal bleeding, unspecified (principal); N83.299 Other ovarian cyst, unspecified side | CPT/HCPCS: 99283 ==

== ENCOUNTER 2023-07-13 09:41 | Outpatient (REF) | payer OTHER, SELFPAY ==
--- NOTE | ~2023-07-13 | XR_ITS ---
EXAMINATION: XR WRIST, LEFT CLINICAL INFORMATION: Pain COMPARISON: None available. TECHNIQUE: PA, lateral, and oblique views of the left wrist. FINDINGS: Overlying cast sutures fine osseous and soft tissue detail. Partially visualized mid ulnar diaphyseal fracture Negative ulnar variance. Joint space alignment are maintained. Soft tissues are unremarkable. XR/XR wrist LT min 3V IMPRESSION: 1. Overlying cast sutures fine osseous and soft tissue detail. 2. Partially visualized mid ulnar diaphyseal fracture. 3. Negative ulnar variance.
== END 2023-07-13 09:42 | disposition home or self-care (01) ==
LOC: HO.HOSX 09:41
PROVIDERS: Visit Provider Physician Assistant
DX: S42.495A Other nondisplaced fracture of lower end of left humerus, initial encounter for closed fracture (principal); S52.125A Nondisplaced fracture of head of left radius, initial encounter for closed fracture; S53.005A Unspecified dislocation of left radial head, initial encounter
CPT/HCPCS: 73110

== ENCOUNTER 2023-07-13 10:45 | Outpatient (AMB) | payer OTHER, SELFPAY ==
--- NOTE | 2023-07-13 10:53 | A.OFFVIS_ITS ---
Intake Intake Visit Reasons: Pre Op Left humerus/ulna ORIF NE Intake Note: Elda is a 42 year old female who presents today for a pre op appointment for her left distal humerus/ulna open reduction. internal fixation. Allergies No Known Allergies Allergy (Mild, Verified 01/04/21 09:36) NOT APPLICABLE HPI Pre Op Left humerus/ulna ORIF NE HPI Details 42-year-old female who presents in the [facility] today for her preoperative history and physical exam prior to a left distal humerus and left ulnar shaft ORIF to be performed on 07/14/[address] Luque. Patient has no known allergy history. Patient is currently taking, as follows: -Ibuprofen 600 mg PO Q6H PRN -Oxycodone 5 mg PO Q8H PRN -Oxycodone-acetaminophen 5-325 mg PO Q4- 6H PRN Patient has a medical history, as follows: -Complex ovarian cyst -Abnormal uterine bleeding -Atypical hyperplasia of right breast -Right breast calcification Patient has a surgical history, as follows: -History of wisdom teeth removal PFSH Medical History Atypical hyperplasia of right breast Breast calcification, right Surgical History Hx of wisdom tooth extraction No pertinent past surgical history Family History Maternal Grandmother Lung cancer Do you presently have visiting nurse or other home services: No Alcohol intake: never Female Reproductive History Menstrual Age of Menarche: 11 Review of Systems Const All systems reviewed & are unremarkable except as noted in HPI and below Physical Exam Const General: cooperative, healthy appearing, comfortable, no acute distress, well developed, alert and awake Orientation/consciousness: patient oriented x3 HEENT Head: Yes normal to inspection, Yes normocephalic and Yes atraumatic Eyes General: appearance normal, both eyes and all related structures Neck Neck: Yes normal visual inspection and Yes no lymphadenopathy Resp Effort & Inspection: normal respiratory effort and able to speak in complete sentences Cardio Rate: regular rate Peripheral pulses: Peripheral pulses 2+ throughout GI Inspection: Yes normal to inspection Palpation (GI): Soft to palpation Skin General skin exam: no rashes or lesions noted Neuro General: patient oriented x3 Extrem Other: Left elbow: Splint is clean, dry, and intact. Sensation is intact, however, is unable to perform thumb extension. Able to perform thumb flexion. Exam conducted in the splint for reduction reasons. Psych Mental Status: mental status grossly normal Assessment & Plan Assessment & Plan (1) Fracture of distal end of left humerus: Code(s): S42.402A - Unspecified fracture of lower end of left humerus, initial encounter for closed fracture Qualifiers: Encounter type: initial encounter Fracture alignment: nondisplaced Fracture morphology: other fracture Fracture type: closed Qualified Code(s): S42.495A - Other nondisplaced fracture of lower end of left humerus, initial encounter for closed fracture (2) Left radial head fracture: Code(s): S52.122A - Displaced fracture of head of left radius, initial encounter for closed fracture Qualifiers: Encounter type: initial encounter Fracture alignment: nondisplaced Fracture type: closed Qualified Code(s): S52.125A - Nondisplaced fracture of head of left radius, initial encounter for closed fracture (3) Dislocation of left radial head: Code(s): S53.005A - Unspecified dislocation of left radial head, initial encounter Qualifiers: Encounter type: initial encounter Qualified Code(s): S53.005A - Unspecified dislocation of left radial head, initial encounter Plan Ms. Koch is a 42-year-old female who presents in the office today for her preoperative history and physical exam prior to a left distal humerus and left ulnar shaft ORIF to be performed on 07/13/[address] Luque. Patient has no known allergy history. Patient is currently taking, as follows: -Ibuprofen 600 mg PO Q6H PRN -Oxycodone 5 mg PO Q8H PRN -Oxycodone-acetaminophen 5-325 mg PO Q4-6H PRN Patient has a medical history, as follows: -Complex ovarian cyst -Abnormal uterine bleeding -Atypical hyperplasia of right breast -Right breast calcification Patient has a surgical history, as follows: -History of wisdom teeth removal I discussed in detail the procedure and what to expect pre and post operatively. We discussed the risks, benefits and alternatives to the surgery as well as the rehabilitation course. The risks; which include, but are not limited to infection, bleeding, nerve injury, ongoing pain, swelling, and stiffness, perioperative risk of injury to bones and soft tissues, and blood clots. I have answered all questions and with their understanding they have consented to move forward with a left distal humerus and left ulnar shaft ORIF to be performed on 07/13/[address] Jim Luque. Follow up will be at the post operative appointment on 07/20/2023 at 10:30 am, or sooner if needed. X-rays of the left wrist which were obtained while in the office today and were reviewed by me, Sammie Hidalgo PA-C, revealed no acute fracture or dislocation at the wrist. Orders: Orders XR wrist LT min 3V Today M25.539 - Pain in unspecified wrist Patient Instructions: Scribed for Sammie Hidalgo PA-C by Charlene Rodriguez certified medical technician assistant, on 07/13/2023 at 10:47 am, EST. Coding Level of Care Code Est Pt Level 4 (79798) Diagnoses Other closed nondisplaced fracture of distal end of left humerus, initial encounter S42.495A Encounter type: initial encounter Fracture alignment: nondisplaced Fracture morphology: other fracture Fracture type: closed Closed nondisplaced fracture of head of left radius, initial encounter S52.125A Encounter type: initial encounter Fracture alignment: nondisplaced Fracture type: closed Dislocation of left radial head, initial encounter S53.005A Encounter type: initial encounter
== END 2023-07-13 11:26 | disposition home or self-care (01) ==
PROVIDERS: PCP Internal Medicine Medical Oncology; Visit Provider Physician Assistant
DX: S42.495A Other nondisplaced fracture of lower end of left humerus, initial encounter for closed fracture (principal); S52.125A Nondisplaced fracture of head of left radius, initial encounter for closed fracture; S53.005A Unspecified dislocation of left radial head, initial encounter
CPT/HCPCS: 99204

== ENCOUNTER 2023-07-14 07:28 | Day surgery (SDC) | payer OTHER, SELFPAY ==
--- NOTE | 2023-07-13 09:31 | P.CONAN_ITS ---
Documented by User: Aury Fowler NP 07/13/23 09:34 HPI - Anesthesia Eval Consult details Narrative: 42yo F for Left Radius Distal and Ulna Fracture ORIF H&H low at [facility] ED with LUE injury. 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 [facility] Active Problems Active Problems: All Active Problems (Updated 07/09/23 @ 00:02 by Mihaela Trivedi) Complex ovarian cyst (Acute) Abnormal uterine bleeding (AUB) (Acute) Atypical hyperplasia of right breast (Acute) Breast calcification, right (Acute) Past Medical History Medical History Atypical hyperplasia of right breast Breast calcification, right Family History Family History Maternal Grandmother Lung cancer Family history of problems with anesthesia: No Surgical History Surgical History Hx of wisdom tooth extraction No pertinent past surgical history History of Problems with Anesthesia: No Social History Do you presently have visiting nurse or other home services: No Alcohol intake: never Advance Directives: No Advance Directives Information Provided: Yes Meds Allergies Allergy/AdvReac Type Severity Reaction Status Date / Time No Known Allergies Allergy Mild NOT Verified 01/04/21 09:36 APPLICABLE Exam Pertinent Lab Results Pertinent Lab Results: Laboratory Tests 07/08/23 09:16 WBC 20.5 H Hgb 7.1 L D Hct 24.6 L Plt Count 296 D Sodium 138 Potassium 4.0 Chloride 108 Carbon Dioxide 24 BUN 13 Creatinine 0.66 Assessment and Plan Assessment Anesthesia Assessment: Chart Reviewed Final Anesthetic Review Family History of Problems with Anesthesia: No History of Problems with Anesthesia: No Documented by User: Rogelio Wilder MD 07/14/23 07:35 [facility] Past Medical History Medical History Atypical hyperplasia of right breast Breast calcification, right Family History Family History Maternal Grandmother Lung cancer Surgical History Surgical History Hx of wisdom tooth extraction No pertinent past surgical history Social History Do you presently have visiting nurse or other home services: No Alcohol intake: never Advance Directives: No Advance Directives Information Provided: Yes Meds Allergies Allergy/AdvReac Type Severity Reaction Status Date / Time No Known Allergies Allergy Mild NOT Verified 01/04/21 09:36 APPLICABLE Exam Airway Mallampati Class: II TM Dist: >3cm Neck ROM: Limited Heart: rrr Lungs: cta Assessment and Plan Assessment Anesthesia Assessment: Anesthesia Plan Discussed Final Anesthetic Review NPO: Yes ASA Class: II Final Preanesthetic Review: No Changes in Pt Med Stat, Meds/Allgs Chart Reviewed, Consent Obtained/Reviewed and Anes Risks/Benef Reviewed Patient Risk: Intermediate Procedure Risk: Intermediate Anesthetic Plan Anesthetic Plan: GA and Regional Block Disposition: Standard PACU
[2023-07-14] VITALS (7 sets, daily range): BP systolic 115–178; BP diastolic 65–95; PULSE 78–93; RESP 14–18; TEMP 36.3–36.8; O2SAT 94–98; BMI 27.5; BMI 28.5
--- NOTE | ~2023-07-14 | FL_ITS ---
EXAMINATION: XR FLUOROSCOPY WITH IMAGES CLINICAL INFORMATION: Fracture left ulna/radius. COMPARISON: None available. TECHNIQUE: Fluoroscopy Supervised By: Dr. Jim Luque. Fluoroscopy Time: 0.8 minutes. Cumulative Dose: 2.21 mGy. DAP: 0.0384 Gycm2. Images: 10. FINDINGS: There are 2 plates and screws in the distal shaft of the humerus and medial and lateral humeral condyles. There is a single screw in the distal humerus There are 2 plates and screws proximal ulna. There is improved alignment of the humerus and ulnar fractures. FL/FL guidance in OR IMPRESSION: Fluoroscopy guidance for ORIF of humerus and ulnar fractures.
--- NOTE | ~2023-07-14 | XR_ITS ---
EXAMINATION: RIGHT WRIST CLINICAL INFORMATION: Contralateral evaluation COMPARISON: None available. TECHNIQUE: 4 views right wrist FINDINGS: No fractures, dislocations or chondrocalcinosis. A small subchondral cyst is noted in the distal radius. XR/XR wrist RT w scaphoid IMPRESSION: Small subchondral cyst distal radius.
[2023-07-14 08:12] LABS: UPreg QC Valid YES; Urine Pregnancy NEGATIVE (NEGATIVE)
[2023-07-14] MEDS: Lactated Ringers 1,000 ML 100 ML IVCONT ×2 (08:24→19:31)
[2023-07-14 08:31] LABS: Hematocrit 30.9 % (37.0-47.0); Mean Corpuscular HGB Conc 29.1 g/dl (31.0-35.0); Mean Corpuscular Hemoglobin 21.2 pg (27.0-33.0); Mean Corpuscular Volume 72.9 fL (80.0-98.0); Platelet Count 546 X10*3/uL (160-400); Red Blood Count 4.24 X10*6/uL (4.20-5.50); Red Cell Distribution Width 22.4 % (11.0-16.0); White Blood Count 10.4 X10*3/uL (4.8-10.8)
[2023-07-14] MEDS: ceFAZolin Sodium/Dextrose,Iso 2 GM/50 ML PIGGYBACK IV (19:32)
[2023-07-14] MEDS: oxyCODONE HCl ER 10 MG TAB.ER.12H PO (21:24)
[2023-07-14] MEDS: Celecoxib 200 MG CAPSULE PO (21:24)
[2023-07-14] MEDS: Docusate Sodium 100 MG CAPSULE PO (21:24)
[2023-07-14] MEDS: HYDROmorphone HCl 0.5 MG/0.5 ML SYRINGE 0.25 MG IVPUSH (22:32)
[2023-07-15] MEDS: Acetaminophen 325 MG TABLET 650 MG PO ×3 (00:13→18:11)
[2023-07-15] MEDS: oxyCODONE HCl Immed Release 5 MG TABLET 10 MG PO ×3 (00:13→18:11)
[2023-07-15] MEDS: ceFAZolin Sodium/Dextrose,Iso 2 GM/50 ML PIGGYBACK IV ×5 (00:15→23:50)
[2023-07-15 02:36] VITALS: BP 136/80; PULSE 73; RESP 16; TEMP 36.4; O2SAT 97
[2023-07-15] MEDS: HYDROmorphone HCl 0.5 MG/0.5 ML SYRINGE 0.25 MG IVPUSH ×3 (03:30→16:50)
[2023-07-15] MEDS: Lactated Ringers 1,000 ML 100 ML IVCONT ×2 (05:43→18:09)
[2023-07-15 06:45] LABS: MANUAL DIFF FLAG NO
[2023-07-15 06:53] LABS: Basophils Absolute Auto 0.1 X10*3/uL (0.0-0.2); Basophils Percent Auto 0.6 % (0-2); Eosinophils Percent Auto 0.3 % (0-4); Hematocrit 25.6 % (37.0-47.0); Hemoglobin 7.7 g/dl (12.0-16.0); Imm Gran Abs Auto 0.06 X10*3/uL (0.00-0.03); Imm Gran Pct Auto 0.4 % (0.0-0.4); Lymphocytes Absolute Auto 1.5 X10*3/uL (1.2-4.9); Lymphocytes Percent Auto 10.8 % (20-40); Mean Corpuscular HGB Conc 30.1 g/dl (31.0-35.0); Mean Corpuscular Hemoglobin 21.9 pg (27.0-33.0); Mean Corpuscular Volume 72.7 fL (80.0-98.0); Mean Platelet Volume 9.3 fL (9.4-12.3); Monocytes Absolute Auto 1.2 X10*3/uL (0.1-1.2); Monocytes Percent Auto 8.3 % (2-11); Neutrophils Absolute Auto 11.1 x10*3/uL (2.0-8.3); Neutrophils Percent Auto 79.6 % (45-73); Platelet Count 541 X10*3/uL (160-400); Red Blood Count 3.52 X10*6/uL (4.20-5.50); Red Cell Distribution Width 22.5 % (11.0-16.0)
[2023-07-15 07:06] LABS: Anion Gap 12 (12-20); Blood Urea Nitrogen 10 mg/dL (9-16); Calcium 9.3 mg/dL (8.4-10.2); Carbon Dioxide 24 mmol/L (22-29); Chloride 102 mmol/L (96-108); Creatinine Clr Calc Pharmacy 104.9; Estimated Glomerular Filt Rate > 60; Glucose Fasting 114 mg/dL (60-99); Sodium 134 mmol/L (135-145)
[2023-07-15 07:30] VITALS: BP 136/80; PULSE 73; O2SAT 97
--- NOTE | 2023-07-15 07:32 | PM.PNORT ---
Subjective Subjective Date of Service: 07/15/23 Interval history: POD1 s/p left distal humerus and ulnar sharf ORIF Patient is resting in bed comfortably No overnight events Pain is managed No additional complaints Physical Exam Vital Signs: Vital Signs: Last Vital Signs Temp 97.6 F 07/15/23 02:36 Pulse 73 07/15/23 02:36 Resp 16 07/15/23 02:36 BP 136/80 07/15/23 02:36 Pulse Ox 97 07/15/23 02:36 O2 Del Method Room Air 07/15/23 02:36 BMI result Body Mass Index 28.5 Const: General: cooperative, healthy appearing and no acute distress Resp: Effort & Inspection: normal respiratory effort and able to speak in complete sentences Cardio: Rate: regular rate Peripheral pulses: Peripheral pulses 2+ throughout GI: Palpation (GI): Soft to palpation Skin: Lesions: no lesions Rashes: no rashes Extrem: Other: LUE splint is c/d/i. Continues to have difficulty with engaging thumb extension. Capillary refill is brisk. Procedures Date of Service Date of Service: 07/15/23 Progress Note: A&P Assessment and plan (1) Dislocation of left radial head: Status: Acute (2) Left radial head fracture: Status: Acute (3) Fracture of distal end of left humerus: Status: Acute Assessment and Plan: Continue pain mgmnt Keep splint c/d/i begin PT/OT - NWB LUE Dispo planning- PT, will need ongoing admission for pain mgmnt (4) Fracture of left ulna, shaft: Status: Acute (5) Fracture of left distal radius: Status: Acute Time Spent With Patient Time: Total time managing care of this patient today ____ minutes. Quality Stroke Does the patient have a stroke diagnosis?: No VTE Prior VTE?: No VTE Risk Level:: Medical - moderate - high VTE Device Contraindication: N/A - Device Ordered VTE Drug Contraindication: N/A - Med Ordered
[2023-07-15 07:40] VITALS: BP 146/84; PULSE 66; RESP 16; TEMP 36; O2SAT 98
[2023-07-15] MEDS: oxyCODONE HCl ER 10 MG TAB.ER.12H PO ×2 (08:05→20:40)
[2023-07-15] MEDS: Docusate Sodium 100 MG CAPSULE PO ×2 (08:06→20:40)
[2023-07-15] MEDS: Celecoxib 200 MG CAPSULE PO ×2 (08:06→20:40)
--- NOTE | 2023-07-15 08:32 | HO.POSTANES ---
Post Anesthesia Evaluation Post Anesthesia Evaluation Date of Service: 07/15/23 Vital Signs: Vital Signs Temp Pulse Resp BP Pulse Ox O2 Del Method 07/15/23 07:40 96.8 F 66 16 146/84 H 98 Room Air 07/15/23 07:30 73 136/80 97 07/15/23 02:36 97.6 F 73 16 136/80 97 Room Air Anesthesia: Nerve Block and General Endotracheal-GETA Mental Status: Awake Pain Control: Satisfactory Nausea/Vomiting: None Hydration: Adequate Anesthesia-Related Issues: No Anes. Related Issues
--- NOTE | 2023-07-15 09:09 | PM.OP ---
Brief Operative Note Date of Service: 07/14/23 Pre-op diagnosis: Left distal humerus intra articular fracture Left [place] fracture Post-op diagnosis: same Procedure: ORIF Distal humerus intra-articular fracture with olecranon osteotomy ORIF ulnar shaft fracture Implants: [place] Surgeon: Jim Luque MD Anesthesia: GETA and regional Was an Research Chief Engineer used for this Procedure?: Yes Research Chief Engineer: Erin Moreno Estimated blood loss (mL): 200 IV fluids (mL): 3,500 Pathology: none sent Condition: stable Disposition: PACU
--- NOTE | 2023-07-15 11:42 | MHC.CM.PN ---
CM MET WITH PT AT BEDSIDE. PT LIVES WITH SPOUSE. INDEPENDENT AND EMPLOYED F/T. NO HCP BUT WILLING TO COMPLETE ONE. PCP DR. WALKER. DP: HOME, NO SERVICES ANTICIPATED. SPOUSE WILL TRANSPORT. CM WILL CONTINUE TO FOLLOW FOR ANY CHANGE IN DC PLAN/NEEDS.
[2023-07-15 15:17] VITALS: BP 128/65; PULSE 84; RESP 16; TEMP 36.6; O2SAT 96
[2023-07-15 19:36] VITALS: BP 140/79; PULSE 81; RESP 18; TEMP 36.2; O2SAT 98
[2023-07-16 04:00] VITALS: BP 144/79; PULSE 91; RESP 18; TEMP 36.1; O2SAT 97
[2023-07-16] MEDS: Lactated Ringers 1,000 ML 100 ML IVCONT (05:17)
[2023-07-16] MEDS: ceFAZolin Sodium/Dextrose,Iso 2 GM/50 ML PIGGYBACK IV (05:53)
[2023-07-16 07:55] VITALS: BP 161/88; PULSE 87; RESP 18; TEMP 36.7; O2SAT 97
[2023-07-16] MEDS: Celecoxib 200 MG CAPSULE PO (08:49)
[2023-07-16] MEDS: oxyCODONE HCl ER 10 MG TAB.ER.12H PO (08:49)
[2023-07-16] MEDS: Docusate Sodium 100 MG CAPSULE PO (08:49)
[2023-07-16] MEDS: 0.9 % Sodium Chloride Flush 3 ML SYRINGE IVFLUSH (08:51)
--- NOTE | 2023-07-16 09:37 | MHC.CM.PN ---
PT CLEARED BY ORTHO FOR D/C HOME SELF CARE. TO [facility] AT 11:30AM. RN AND PATIENT AWARE.
--- NOTE | 2023-07-16 09:51 | P.DS_ITS ---
DS: Providers Provider Date of Service: 07/16/23 Primary care physician: Gaurav Foreman MD DS: Diagnosis Discharge Diagnosis (1) Dislocation of left radial head: Status: Acute (2) Left radial head fracture: Status: Acute (3) Fracture of distal end of left humerus: Status: Acute (4) Fracture of left ulna, shaft: Status: Acute (5) Fracture of left distal radius: Status: Acute DS: Summary Hospital Course Hospital Course: The patient underwent a successful ORIF left humerus and elbow, was transferred to PACU and then to the floor to recover. During their stay, their vitals were stable, afebrile at 98.0. Labs were unremarkable, H/H 7.7/25.6. POD 1 she received PT/OT. Prior to discharge, her splint was changed, incision clean dry and intact, new splint applied. The plan is to be discharged home. Time Attestation Discharge coordination time: Less than 30 minutes Quality: Safe Use of Opioids Does Pt have an Active Cancer Diagnosis on the Problem List?: No Quality: Stroke Does the patient have a stroke diagnosis?: No Physical Exam Vital Signs: Vital Signs: Last Vital Signs Temp 98.0 F 07/16/23 07:55 Pulse 87 07/16/23 07:55 Resp 18 07/16/23 07:55 BP 161/88 H 07/16/23 07:55 Pulse Ox 97 07/16/23 07:55 O2 Del Method Room Air 07/16/23 07:55 BMI result Body Mass Index 28.5 Discharge Plan Discharge Patient Disposition: Home, Self-Care Referrals: Erin Moreno PA-C [Physician Materials Assistant] - 1 Week (07/20/23 10:30 [facility] Erin Moreno PA-C) Discharge Medications: New docusate sodium 100 mg Capsule 100 mg PO BID 14 Days Qty: 28 0RF oxycodone 10 mg tablet 10 mg PO Q4H PRN (Reason: Pain, Moderate(Pain Scale 4-6)) 7 Days Qty: 42 0RF Rx Instructions: Partial Fill upon patient request. celecoxib 200 mg Capsule 200 mg PO BID 30 Days Qty: 60 0RF acetaminophen 325 mg Tablet 650 mg PO Q6H PRN (Reason: Pain, Mild (Pain Scale 1-3)) 30 Days Qty: 240 0RF Discontinued oxycodone-acetaminophen [Percocet] 5-325 mg tablet 1 - 2 tab PO Q4-6H PRN (Reason: pain) Qty: 30 0RF Discharge Orders: Discharge Order (Routine); Ordered 07/16/23 Ordered By: Erin Moreno Diet: Regular diet Activity on Discharge: Use cane or walker Activity Restrictions/Additional Instructions: * Keep splint clean, dry and intact * Elevate the arm on pillows when resting and sleeping * Perform Hand and wrist ROM-making and fist and opening fingers * Call the office if there are any questions or concerns. If splint is too tight or too loose. If it becomes saturated.
--- NOTE | 2023-08-01 09:13 | W.PM.OPN ---
Operative Note Operative Note Date of Service: 07/14/23 Narrative: Date of Service: 07/14/23 Pre-op diagnosis: Left distal humerus intra articular fracture Left Monteggia fracture Post-op diagnosis: same Procedure: ORIF Distal humerus intra-articular fracture with olecranon osteotomy ORIF ulnar shaft fracture Implants: Bijal Surgeon: Jim Luque MD Anesthesia: GETA and regional Was an Digital Print Operator used for this Procedure?: Yes Digital Print Operator: Erin Moreno Estimated blood loss (mL): 200 IV fluids (mL): 3,500 Pathology: none sent Condition: stable Disposition: PACU Indications: 42 yo F with a fracture dislocation of the elbow. She was seen in the ED and then in my office prior to surgery. 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 Sensation was intact. I reviewed her radiographs and explained the surgery. I discussed the risks benefits and alternatives including but not limited to the risk of pain, infection, stiffness, need for further surgery as well as potential medical complications such as blood clots, pulmonary embolism and cardiac complications. I also explained the the PIN palsy and that it should return with time. Procedure in detail: Patient was brought to the operating room and placed prone on the surgical table. She was prepped and draped in standard sterile fashion and a time out was called to identify proper site, proper procedure and IV antibiotics per weight were administered. I began by making a posterior incision over ulnar shaft, elbow extending 10 cm over the distal humerus. Full thickness flaps were established. I began with the ulnar shaft. Dissection between the FCU and ECU was done bluntly and a periosteal elevator was used to clear away the soft tissues and identify the fracture. The fracture was reduced with a lobster claw and three lag screws were placed perpendicular to the fracture line using standard AO technique. A [address] was then applied using standard AO technique and the fracture was reduced and stabilized. this was a comminuted fracture so there was a small amount of bone loss. I then turned my attention the the olecranon and a chevron osteotomy was made with a sagittal saw and completed with an osteotome. This was done between the posterior and anterior facets of the olecranon and the proximal piece, once dissected from the humeral soft tissue attachments was retracted revealing an intra-articular distal humerus fracture. There was rotation of the trochlea and capitellum with fracture extension proximally in a coronal and sagittal orientation. The ulnar nerve was identified and protected at all time and periosteal dissection was taken along the medial border of the distal humerus and a direct medial plate was applied. A long distal screw was used to reduce and maintain the rotation of the trochlea and standard AO technique was used to apply the plate to the humeral shaft more proximally. A PL plate was then applied and distal screws were used to help stabilize the reduced trochlear fragment. The intra-articular reduction was anatomic but the flexion of the trochlear/capitellar piece was difficult to fully control as lag scews in the olecranon fossa were not possible. After the PL plate was applied and proximal screws placed I examined the articular reduction. This was anatomic. The trochlear fragments had reduced and there was no articular step off. There was a 1-2 mm step off in the olecranon fossa which likely represented cortical comminution and bone loss. I irrigated copiously and confirmed the integrity of the ulnar nerve. Finally I returned to the olecranon osteotomy. A long olecranon plate was selected that spanned the previously applied compression plate. Two oblique locking screws were placed across the osteotomy site and shaft screws were placed distal and proximal to the compression plate. I had anatomic reduction of the osteotomy and the elbow was stable. I took the elbow through a full ROM and had 0-120. There was full rotation of the forearm and the radial head was stable. I used biplanar fluoro to confirm stability of the radial head and the overall stability of the construct. I was satisfied with the hardware position. All instrumentation was removed and the wound was irrigated copiously. The incision was closed with absorbable sub-q and leora. Patient was placed in sterile dressing and a long posterior splint in 90 deg of flexion and neutral rotation of the forearm. She was extubated brought to recovery room stable condition there were no known complications.
== END 2023-07-16 11:35 | disposition home or self-care (01) ==
LOC: HO.SSS 07:28 → HO.S3 17:47
PROVIDERS: Nurse Practitioner; Physician Assistant; PCP Internal Medicine Medical Oncology; Visit Provider Orthopaedic Surgery
PROC: (CPT 24586; principal; 2023-07-14 09:00)
DX: S42.402A Unspecified fracture of lower end of left humerus, initial encounter for closed fracture (principal); S52.272A Monteggia's fracture of left ulna, initial encounter for closed fracture; M25.522 Pain in left elbow; G56.82 Other specified mononeuropathies of left upper limb; M85.431 Solitary bone cyst, right ulna and radius; X58.XXXA Exposure to other specified factors, initial encounter; Y93.9 Activity, unspecified; Y92.9 Unspecified place or not applicable; Y99.9 Unspecified external cause status
CPT/HCPCS: 24586; 25545; 36415; 73110; 80048; 81025; 85025; 85027; 97161; 97165; 97535; C1713; J0131; J0690; J1100; J1170; J1885; J2371; J2405; J2704; J2795; J7120

== ENCOUNTER → 2023-07-14 07:28 | Outpatient (BNV) | payer OTHER, SELFPAY | PROVIDERS: PCP Internal Medicine Medical Oncology; Visit Provider Physician Assistant | DX: S52.125A Nondisplaced fracture of head of left radius, initial encounter for closed fracture (principal); S42.495A Other nondisplaced fracture of lower end of left humerus, initial encounter for closed fracture; S52.202A Unspecified fracture of shaft of left ulna, initial encounter for closed fracture; S52.272A Monteggia's fracture of left ulna, initial encounter for closed fracture | CPT/HCPCS: 24635; 24685; 25574; 99024 ==

== ENCOUNTER 2023-07-20 10:20 | Outpatient (AMB) | payer OTHER, SELFPAY ==
--- NOTE | 2023-07-20 10:51 | A.OFFVIS_ITS ---
Intake Vital Signs 07/20/23 10:54 Height 5 ft 4 in Weight 160 lb BMI 27.5 Intake Visit Reasons: PO Left distal humerus/ulna ORIF Intake Note: Elda is a 42 year old female who presents today for a pre op appointment for her left distal humerus/ulna ORIF, DOS 07/14/23 NE. Patient reports that he pain has been tolerable pain. She continues to have swelling in her hand. Allergies No Known Allergies Allergy (Mild, Verified 07/20/23 10:51) NOT APPLICABLE HPI PO Left distal humerus/ulna ORIF HPI Details 42-year-old female who returns to the [facility] today for post-op left distal humerus and ulna ORIF, 07/14/[address] Luque. She continues to have pain in her elbow which is tolerable. She also c/o numbness and tingling in her arm as well as swelling in her hand. She is doing well otherwise and has no other concerns today. [facility] Medical History Atypical hyperplasia of right breast Breast calcification, right Surgical History Hx of wisdom tooth extraction No pertinent past surgical history Family History Maternal Grandmother Lung cancer Social History Household Members: Spouse and Children Housing: House Do you presently have visiting nurse or other home services: No Alcohol intake: never Patient Tobacco Use Status: Never used Tobacco service: No Female Reproductive History Menstrual Age of Menarche: 11 Review of Systems Const All systems reviewed & are unremarkable except as noted in HPI and below Physical Exam Vital Signs: BMI result Body Mass Index 27.5 Extrem Other: Left upper extremity: Incision clean, dry and intact. No redness. She does have good sensation over the anterior deltoid of the forearm and hand. There is some weakness with wrist flexion, trace movement with thumb abduction Results Reviewed Results Reviewed: Xrays were obtained in the office today and personally reviewed by me of the left forearm and elbow show intact hardware Assessment & Plan Assessment & Plan (1) Dislocation of left radial head: Code(s): S53.005A - Unspecified dislocation of left radial head, initial encounter Qualifiers: Encounter type: initial encounter Qualified Code(s): S53.005A - Unspecified dislocation of left radial head, initial encounter (2) Fracture of distal end of left humerus: Code(s): S42.402A - Unspecified fracture of lower end of left humerus, initial encounter for closed fracture Qualifiers: Encounter type: initial encounter Fracture alignment: nondisplaced Fracture morphology: other fracture Fracture type: closed Qualified Code(s): S42.495A - Other nondisplaced fracture of lower end of left humerus, initial encounter for closed fracture (3) Fracture of left ulna, shaft: Code(s): S52.202A - Unspecified fracture of shaft of left ulna, initial encounter for closed fracture Qualifiers: Encounter type: initial encounter Fracture morphology: unspecified fracture morphology Fracture type: closed Qualified Code(s): S52.202A - Unspecified fracture of shaft of left ulna, initial encounter for closed fracture (4) Injury of radial nerve at wrist and hand level of left arm, sequela: Code(s): S64.22XS - Injury of radial nerve at wrist and hand level of left arm, sequela Plan Incision was cleaned and a dressing was applied. ROM brace was applied to the left elbow with motion of 60-90 degrees. She will work with occupational therapy for active assisted and active ROM only, no passive motion. She will increase her motion in brace 15 degrees every week and she will have a fabricated orthosis for the left wrist as well. We will see back in 1 week for x-rays and staple removal. Orders: Orders XR elbow LT 2V Today S53.005A - Unspecified dislocation of left radial head, initial encounter OT Evaluation and Treatment Today S42.402A - Unspecified fracture of lower end of left humerus, initial encounter for closed fracture, S52.202A - Unspecified fracture of shaft of left ulna, initial encounter for closed fracture, S53.005A - Unspecified dislocation of left radial head, initial encounter, S64.22XS - Injury of radial nerve at wrist and hand level of left arm, sequela Hemoglobin and Hematocrit Today D64.9 - Anemia, unspecified XR forearm LT 2V Today S52.209A - Unspecified fracture of shaft of unspecified ulna, initial encounter for closed fracture, S52.90XA - Unspecified fracture of unspecified forearm, initial encounter for closed fracture Patient Instructions: Scribed for Erin Moreno PA-C, by Cody Mcginnis director of medical education, on 07/20/2023 at 10:30 AM [place]. Erin Rivera PA-C, have personally reviewed and agree with the information entered by the scribe. Coding Level of Care Code Global (65479) Diagnoses Dislocation of left radial head, initial encounter S53.005A Encounter type: initial encounter Other closed nondisplaced fracture of distal end of left humerus, initial encounter S42.495A Encounter type: initial encounter Fracture alignment: nondisplaced Fracture morphology: other fracture Fracture type: closed Closed fracture of shaft of left ulna, unspecified fracture morphology, initial encounter S52.A Encounter type: initial encounter Fracture morphology: unspecified fracture morphology Fracture type: closed Injury of radial nerve at wrist and hand level of left arm, sequela S64.22XS
[2023-07-20 10:54] VITALS: BMI 27.5
== END 2023-07-20 12:04 | disposition home or self-care (01) ==
PROVIDERS: PCP Internal Medicine Medical Oncology; Visit Provider Physician Assistant
DX: S53.005A Unspecified dislocation of left radial head, initial encounter (principal); S42.495A Other nondisplaced fracture of lower end of left humerus, initial encounter for closed fracture; S52.202A Unspecified fracture of shaft of left ulna, initial encounter for closed fracture; S64.22 Injury of radial nerve at wrist and hand level of left arm
CPT/HCPCS: 99024

== ENCOUNTER 2023-07-20 10:20 | Outpatient (REF) | payer OTHER, SELFPAY ==
--- NOTE | ~2023-07-20 | XR_ITS ---
EXAMINATION: XR ELBOW, LEFT XR FOREARM, LEFT CLINICAL INFORMATION: History of left radial head dislocation. COMPARISON: Prior radiographs, most recently 07/15/2023. TECHNIQUE: AP, lateral, and oblique views of the left elbow. AP and lateral views of the left forearm were obtained. FINDINGS: There have been prior ORIFs for treatment of comminuted fractures of the distal left humerus and proximal ulna. There is religious of bony alignment, with intact orthopedic fixator plates and fixator screws. No hardware failure or loosening is seen. Lateral skin leora are noted. No dislocation or joint effusion is seen. There is mild posterior soft tissue swelling, without gas or foreign body. XR/XR forearm LT 2V IMPRESSION: There are postoperative changes, as detailed. Alignment of previously noted comminuted fractures of the distal left humerus and proximal ulna is now near anatomic status-post ORIFs. No hardware failure or loosening seen. No new periosteal callus formation is noted.
--- NOTE | ~2023-07-20 | XR_ITS ---
EXAMINATION: XR ELBOW, LEFT XR FOREARM, LEFT CLINICAL INFORMATION: History of left radial head dislocation. COMPARISON: Prior radiographs, most recently 07/15/2023. TECHNIQUE: AP, lateral, and oblique views of the left elbow. AP and lateral views of the left forearm were obtained. FINDINGS: There have been prior ORIFs for treatment of comminuted fractures of the distal left humerus and proximal ulna. There is scientology of bony alignment, with intact orthopedic fixator plates and fixator screws. No hardware failure or loosening is seen. Lateral skin leora are noted. No dislocation or joint effusion is seen. There is mild posterior soft tissue swelling, without gas or foreign body. XR/XR elbow LT 2V IMPRESSION: There are postoperative changes, as detailed. Alignment of previously noted comminuted fractures of the distal left humerus and proximal ulna is now near anatomic status-post ORIFs. No hardware failure or loosening seen. No new periosteal callus formation is noted.
== END 2023-07-20 10:21 | disposition home or self-care (01) ==
LOC: HO.HOSX 10:20
PROVIDERS: PCP Internal Medicine Medical Oncology; Visit Provider Physician Assistant
DX: S53.005D Unspecified dislocation of left radial head, subsequent encounter (principal); S42.495D Other nondisplaced fracture of lower end of left humerus, subsequent encounter for fracture with routine healing; S52.202D Unspecified fracture of shaft of left ulna, subsequent encounter for closed fracture with routine healing
CPT/HCPCS: 73070; 73090

== ENCOUNTER 2023-07-20 12:08 | Outpatient (REF) | payer OTHER, SELFPAY ==
[2023-07-20 13:58] LABS: Hematocrit 27.8 % (37.0-47.0); Hemoglobin 8.1 g/dl (12.0-16.0)
== END 2023-07-20 12:09 | disposition home or self-care (01) ==
LOC: HO.10HDL 12:08
PROVIDERS: Visit Provider Physician Assistant
DX: D64.9 Anemia, unspecified (principal)
CPT/HCPCS: 36415; 85014; 85018

== ENCOUNTER 2023-07-27 06:30 | Outpatient (REF) | payer OTHER, SELFPAY ==
--- NOTE | ~2023-07-27 | XR_ITS ---
EXAMINATION: X-RAY LEFT HUMERUS AND LEFT ELBOW CLINICAL INFORMATION: Pain. COMPARISON: Radiograph left elbow/forearm 07/20/2023. TECHNIQUE: 2 views of the left humerus and 3 views of the left elbow. FINDINGS: Redemonstration of extensive orthopedic hardware in the order of 2 fixation plates overlying the distal humerus, 2 fixation plates overlying the proximal ulna and multiple traversing screws. No hardware fracture. No increased periprosthetic lucency to suspect complication. Comminuted distal humeral and proximal ulnar fracture are unchanged with near-anatomic alignment. No significant osseous bridging or callus formation. No interval injuries. Surgical skin leora redemonstrated along the posterior surface of the arm. Slightly decreased diffuse soft tissue swelling. XR/XR humerus LT IMPRESSION: 1. Extensive orthopedic hardware without evidence of hardware complication. 2. Unchanged appearance of comminuted distal humeral and proximal ulnar fractures.
--- NOTE | ~2023-07-27 | XR_ITS ---
EXAMINATION: X-RAY LEFT HUMERUS AND LEFT ELBOW CLINICAL INFORMATION: Pain. COMPARISON: Radiograph left elbow/forearm 07/20/2023. TECHNIQUE: 2 views of the left humerus and 3 views of the left elbow. FINDINGS: Redemonstration of extensive orthopedic hardware in the order of 2 fixation plates overlying the distal humerus, 2 fixation plates overlying the proximal ulna and multiple traversing screws. No hardware fracture. No increased periprosthetic lucency to suspect complication. Comminuted distal humeral and proximal ulnar fracture are unchanged with near-anatomic alignment. No significant osseous bridging or callus formation. No interval injuries. Surgical skin leora redemonstrated along the posterior surface of the arm. Slightly decreased diffuse soft tissue swelling. XR/XR elbow LT min 3V IMPRESSION: 1. Extensive orthopedic hardware without evidence of hardware complication. 2. Unchanged appearance of comminuted distal humeral and proximal ulnar fractures.
== END 2023-07-27 06:31 | disposition home or self-care (01) ==
LOC: HO.HOSX 06:30
PROVIDERS: Visit Provider Physician Assistant
DX: S53.005D Unspecified dislocation of left radial head, subsequent encounter (principal); S42.495D Other nondisplaced fracture of lower end of left humerus, subsequent encounter for fracture with routine healing; S64.22 Injury of radial nerve at wrist and hand level of left arm
CPT/HCPCS: 73060; 73080

== ENCOUNTER 2023-07-27 11:04 | Outpatient (AMB) | payer OTHER, SELFPAY ==
--- NOTE | 2023-07-27 11:21 | A.OFFVIS_ITS ---
Intake Vital Signs 07/27/23 11:26 Height 5 ft 4 in Weight 160 lb BMI 27.5 Handedness Right Intake Visit Reasons: PO-left humerus/elbow ORIF w xrays 07/14/23 Intake Note: Elda is a 42 year old right hand dominant female who presents today for a pre op appointment for her left distal humerus/ulna ORIF, DOS 07/14/23 NE. Patient reports keon is having pain around her wrist. She states that she is unsure on how she needs to move her arm. Having discomfort when having the brace on per patient. Allergies No Known Allergies Allergy (Mild, Verified 07/27/23 11:25) NOT APPLICABLE HPI PO-left humerus/elbow ORIF w xrays 07/14/23 HPI Details 42-year-old right hand dominant female kimberli helton returns to the office today for post-op left elbow ORIF, 06/24/23. She continues to have pain around her wrist due to the brace . She is doing well otherwise and has no other concerns today. [facility] Medical History Atypical hyperplasia of right breast Breast calcification, right Surgical History Hx of wisdom tooth extraction No pertinent past surgical history Family History Maternal Grandmother Lung cancer Social History Household Members: Spouse and Children Housing: House Do you presently have visiting nurse or other home services: No Alcohol intake: never Patient Tobacco Use Status: Never used Tobacco service: No Female Reproductive History Menstrual Age of Menarche: 11 Review of Systems Const All systems reviewed & are unremarkable except as noted in HPI and below Physical Exam Vital Signs: BMI result Body Mass Index 27.5 Extrem Other: Left upper extremity: Incision clean, dry and intact. No redness. She does have good sensation over the anterior deltoid of the forearm and hand. There is some weakness with wrist flexion, trace movement with thumb abduction Results Reviewed Results Reviewed: Xrays were obtained in the office today and personally reviewed by me of the left forearm and elbow show intact hardware Assessment & Plan Assessment & Plan (1) Dislocation of left radial head: Code(s): S53.005A - Unspecified dislocation of left radial head, initial encounter Qualifiers: Encounter type: initial encounter Qualified Code(s): S53.005A - Unsp ecified dislocation of left radial head, initial encounter (2) Fracture of distal end of left humerus: Code(s): S42.402A - Unspecified fracture of lower end of left humerus, initial encounter for closed fracture Qualifiers: Encounter type: initial encounter Fracture alignment: nondisplaced Fracture morphology: other fracture Fracture type: closed Qualified Code(s): S42.495A - Other nondisplaced fracture of lower end of left humerus, initial encounter for closed fracture (3) Fracture of left ulna, shaft: Code(s): S52.202A - Unspecified fracture of shaft of left ulna, initial encounter for closed fracture Qualifiers: Encounter type: initial encounter Fracture morphology: unspecified fracture morphology Fracture type: closed Qualified Code(s): S52.202A - Unspecified fracture of shaft of left ulna, initial encounter for closed fracture (4) 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 ROM brace was applied to the left elbow with motion of 60-90 degrees. She will work with occupational therapy for active assisted and active ROM only, no passive motion. She will increase her motion in brace 15 degrees every week and she will have a fabricated orthosis for the left wrist as well. she will return in [address] Luque, sooner if needed. Orders: Orders XR humerus LT Today S42.402A - Unspecified fracture of lower end of left humerus, initial encounter for closed fracture XR elbow LT min 3V Today M25.522 - Pain in left elbow Patient Instructions: Scribed for Erin Moreno PA-C, by Cody Mcginnis medical technologist chemistry, on 07/27/2023 at 11:15 AM [facility]. Erin Rivera PA-C, have personally reviewed and agree with the information entered by the scribe. Coding Level of Care Code Global (22653) Diagnoses Dislocation of left radial head, initial encounter S53.005A Encounter type: initial encounter Other closed nondisplaced fracture of distal end of left humerus, initial encounter S42.495A Encounter type: initial encounter Fracture alignment: nondisplaced Fracture morphology: other fracture Fracture type: closed Closed fracture of shaft of left ulna, unspecified fracture morphology, initial encounter S52.202A Encounter type: initial encounter Fracture morphology: unspecified fracture morphology Fracture type: closed Injury of radial nerve at wrist and hand level of left arm, sequela S64.22XS
[2023-07-27 11:26] VITALS: BMI 27.5
== END 2023-07-27 11:59 | disposition home or self-care (01) ==
PROVIDERS: PCP Internal Medicine Medical Oncology; Visit Provider Physician Assistant
DX: S53.005A Unspecified dislocation of left radial head, initial encounter (principal); S42.495A Other nondisplaced fracture of lower end of left humerus, initial encounter for closed fracture; S52.202A Unspecified fracture of shaft of left ulna, initial encounter for closed fracture; S64.22 Injury of radial nerve at wrist and hand level of left arm
CPT/HCPCS: 99024

== ENCOUNTER 2023-08-05 11:01 | Outpatient (AMB) | payer OTHER, SELFPAY ==
--- NOTE | 2023-08-05 11:06 | A.OFFVIS_ITS ---
Intake Vital Signs 08/05/23 11:13 Height 5 ft 4 in Weight 153 lb BMI 26.3 BP 124/70 Intake Visit Reasons: Er follow up Coil Binder Required: No Information Interpreted: non-clinical & clinical Precipitation Equipment Tender: Precipitation Equipment Tender Present (Aidyn) Allergies No Known Allergies Allergy (Mild, Verified 08/05/23 11:15) NOT APPLICABLE Is last menstrual period known: Yes Last menstrual period: 08/05/23 Post menopausal: No HPI HPI Comments History of Present Illness Details The patient is presenting follow-up from emergency room for abnormal uterine bleeding. The patient went to the ER with heavy menstrual cycles associated with passage of blood clots . In the emergency room on 07/08 the following workup was done: H&H was 7.1/24.1 repeated on 07/20 was 8.1/27.8. Urine test was negative Pelvic ultrasound: Uterus: The uterus is anteverted, anteflexed and measures 10.5 x 6.1 x 7.4 cm. There are at least 3 hypoechoic areas consistent with fibroid. The largest along the posterior body of uterus measures 5.0 x 3.5 x 3.9 cm. A small lesion along the right superior fundus measures 1.2 x 1.2 x 1.9 cm. Third lesion along the right upper lateral uterus measures 2.6 x 2.5 x 3.1 cm. No additional lesions seen The double wall endometrial thickness measures 0.4 cm. Adnexa: Both ovaries are visualized. There is normal color flow to the adnexa. There is no ovarian torsion. There is no pelvic ascites or fluid collection. Right ovary measures 4.3 x 3.6 x 2.7) cm. Volume 22.7 mL. There is anechoic cyst measuring 2.9 x 2.3 x 2.2 cm. Left ovary measures 4.1 x 2.6 x 2.7 cm. Volume 15.1 cm. There is a complex anechoic cyst with internal septation measuring 2.4 x 1.7 x 2.4 cm. Last mammogram was BI-RADS 1 in 05/09 Last Pap smear was few years ago was negative [facility] Medical History Atypical hyperplasia of right breast Breast calcification, right Surgical History History of surgery on arm History of lumpectomy of right breast Hx of wisdom tooth extraction No pertinent past surgical history Family History Maternal Grandmother Lung cancer Social History Household Members: Spouse and Children Housing: House Do you presently have visiting nurse or other home services: No Alcohol intake: never Patient Tobacco Use Status: Never used Tobacco service: No Female Reproductive History Menstrual Age of Menarche: 11 Duration of menses: 6-7 days Date of last menstrual period: 08/05/23 control method: none Total pregnancies: 4 Full term: 3 Number of Living Children: 3 Ab spontaneous: 1 Date of last pap smear: 02/02/08 (negative) Date of Mammogram: 05/14/23 Review of Systems Const All systems reviewed & are unremarkable except as noted in HPI and below Physical Exam General: Yes no CVA tenderness External Female Exam: normal external appearance and normal appearance of the urethra Speculum Exam - Vagina: normal appearance of the vagina, normal palpation, no lesions and no masses Speculum Exam - Cervix: normal appearance of the cervix, normal palpation, no lesions, no masses and nontender Bimanual exam- vagina & uterus: normal bimanual exam, normal palpation, uterine size normal, normal palpation, uterine shape normal, No Cervical tenderness present and non-tender Bimanual Exam- Adnexa, other: normal adnexae Back/Spine/Pelvis Back: no CVA tenderness Assessment & Plan Assessment & Plan (1) Abnormal uterine bleeding (AUB): Comment: History of atypical ductal hyperplasia Code(s): N93.9 - Abnormal uterine and vaginal bleeding, unspecified Plan: Co testing done, GC and chlamydia taken will order repeat CBC, TSH, prolactin, HCG. Discussed with the patient the different causes of abnormal bleeding including thyroid disorders, uterine and ovarian pathology, endometrial hyperplasia, carcinoma and other potential causes. Discussed with the patient the work up including CBC (to r/o anemia), TSH, pelvic Ultrasound, endometrial biopsy to r/o endometrial pathology. EMB done can see procedure note. All questions answered and the patient verbalized understanding. Instructed the patient to schedule a follow-up appointment within 2 weeks. (2) Uterine myoma: Code(s): D25.9 - Leiomyoma of uterus, unspecified Plan: Discussed with the patient the results of the ultrasound and the size of the myomas has increased in size from 2.2 cm in December of 2019 up to 3.4 cm in 12/06. Discussed with the patient risk of myosarcoma and symptoms that are caused by myomas including but not limited to pelvic pain, pressure symptoms, abnormal uterine bleeding. In addition discussed with the patient options of treatment for myomas including: Serial ultrasounds periodically to follow-up on the size of the myoma while targeting the treatment against fibroids related symptoms ( control pills, Mirena IUD, progesterone treatment, GnRH agonist/antagonist, uterine artery embolization or endometrial ablation) versus surgical treatmentincluding hysterectomy and or myomectomy. All pros and cons, risks and benefits of all options were discussed with the patient. The patient understands that delay in surgical treatment in case of myosarcoma can affect her prognosis, after further discussion, the patient decided to think about it and get back to us next visit (3) Complex ovarian cyst: Code(s): N83.299 - Other ovarian cyst, unspecified side Plan: Discussed with the patient the complex ovarian cyst by ultrasound. Discussed with the patient the Ultrasound findings, the main limitation of transvaginal ultrasonography alone as a diagnostic tool to distinguish benign from malignant masses relates to its lack of specificity and low positive predictive value for cancer. The differential diagnosis discussed with the patient includes the following but not limited to: benign and malignant gynecological and non-gynecological causes. Discussed with the patient options of treatment including laparoscopy ovarian cystectomy/oophorectomy vs. expectant management with repeat US in repeating pelvic US in 6-12 weeks from previous US. If the ovarian complex cyst is persistent larger and / or more complex looking, or higher CA 125 will refer to gynecologic Oncology. All pros, cons, risks and benefits of each approach were discussed with the patient including but not limited to a delay in the diagnosis and treatment of ovarian cancer affecting the prognosis; The patient decided to go ahead with expectant management. Instructions given the patient to schedule a 3 months follow-up ultrasound appointment. All questions were answered & the patient verbalized understanding and agreed with the plan. Orders: Orders Complete Blood Count no Diff Today N93.9 - Abnormal uterine and vaginal bleeding, unspecified Prolactin Today N93.9 - Abnormal uterine and vaginal bleeding, unspecified US pelvic and transvaginal 3 Months N83.299 - Other ovarian cyst, unspecified side TSH reflex Free T4 Today N93.9 - Abnormal uterine and vaginal bleeding, unspecified HCG Quantitative Today N93.9 - Abnormal uterine and vaginal bleeding, u nspecified Coding Level of Care Code Est Pt Level 3 (85929) Diagnoses Abnormal uterine bleeding (AUB) N93.9 Uterine myoma D25.9 Complex ovarian cyst N83.299
[2023-08-05 11:13] VITALS: BP 124/70; BMI 26.3
== END 2023-08-05 11:57 | disposition home or self-care (01) ==
LOC: HO.HWS 11:01
PROVIDERS: PCP Internal Medicine Medical Oncology; Visit Provider Obstetrics & Gynecology
DX: N93.9 Abnormal uterine and vaginal bleeding, unspecified (principal); D25.9 Leiomyoma of uterus, unspecified; N83.291 Other ovarian cyst, right side; N83.292 Other ovarian cyst, left side
CPT/HCPCS: 58100; 99213

== ENCOUNTER 2023-08-05 11:01 | Outpatient (REF) | payer OTHER, SELFPAY ==
[2023-08-05 13:05] LABS: Hematocrit 29.4 % (37.0-47.0); Hemoglobin 8.4 g/dl (12.0-16.0); Mean Corpuscular HGB Conc 28.6 g/dl (31.0-35.0); Mean Corpuscular Hemoglobin 20.7 pg (27.0-33.0); Mean Corpuscular Volume 72.4 fL (80.0-98.0); Mean Platelet Volume 9.4 fL (9.4-12.3); Platelet Count 570 X10*3/uL (160-400); Red Blood Count 4.06 X10*6/uL (4.20-5.50); Red Cell Distribution Width 20.3 % (11.0-16.0); White Blood Count 6.3 X10*3/uL (4.8-10.8)
[2023-08-05 14:00] LABS: HCG Quantitative < 2 mIU/mL; TSH reflex Free T4 0.54 uIU/mL (0.32-4.0)
[2023-08-05 15:30] LABS: CT PCR NOT DETECTED (Not Detect.); NG PCR NOT DETECTED (Not Detect.)
[2023-08-07 01:59] LABS: Prolactin 6.3 ng/mL
[2023-08-08 03:33] LABS: HPV mRNA E6/E7 rflx Not Detected (Not Detected)
== END 2023-08-05 11:02 | disposition home or self-care (01) ==
LOC: HO.LAB 11:01
PROVIDERS: PCP Internal Medicine Medical Oncology; Visit Provider Obstetrics & Gynecology
DX: Z12.4 Encounter for screening for malignant neoplasm of cervix (principal); Z11.51 Encounter for screening for human papillomavirus (HPV); N93.9 Abnormal uterine and vaginal bleeding, unspecified; D25.9 Leiomyoma of uterus, unspecified; N83.299 Other ovarian cyst, unspecified side; Z20.2 Contact with and (suspected) exposure to infections with a predominantly sexual mode of transmission
CPT/HCPCS: 0353U; 58100; 84146; 84443; 84702; 85027; 87624; 88142; 88305

== ENCOUNTER 2023-08-20 08:45 | Outpatient (AMB) | payer OTHER, SELFPAY ==
--- NOTE | 2023-08-20 08:49 | MHC.OFFVIS ---
Intake Intake Visit Reasons: PO-ORIF Left Elbow 07/14/23 - w/ XR Intake Note: Elda is a 42 year old who presents today for a post operative appointment s/p Left Distal Humerus & Ulnar Shaft ORIF 07/14/23. She is in a ROM elbow brace as well as a custom brace from occupational therapy, ROM 60-90 degrees. She reports minimal pain. Allergies No Known Allergies Allergy (Mild, Verified 08/20/23 08:59) NOT APPLICABLE Medication List - Last Reconciled 08/20/23 by Lissy Iraheta RN acetaminophen 650 mg (2 x 325 mg) PO Q6H PRN 30 days celecoxib 200 mg PO BID 30 days oxycodone 10 mg PO Q4H PRN 7 days HPI PO-ORIF Left Elbow 07/14/23 - w/ XR HPI Details Elda is a 42 year old right hand dominant woman who presents ~6 weeks S/P left Distal humerus ORIF with olecranon osteotomy, & ulnar shaft ORIF. She says she is doing well. She is seen in an elbow brace today that allows for ROM, and has a custom elbow brace she alternates between. She has been working with OT on her ROM. [facility] Medical History Atypical hyperplasia of right breast Breast calcification, right Surgical History History of surgery on arm History of lumpectomy of right breast Hx of wisdom tooth extraction No pertinent past surgical history Family History Maternal Grandmother Lung cancer Social History Household Members: Spouse and Children Housing: House Do you presently have visiting nurse or other home services: No Alcohol intake: never Patient Tobacco Use Status: Never used Tobacco service: No Female Reproductive History Menstrual Age of Menarche: 11 Review of Systems Const All systems reviewed & are unremarkable except as noted in HPI and below Physical Exam Const General: no acute distress, alert and awake Orientation/consciousness: patient oriented x3 HEENT Head: Yes normocephalic and Yes atraumatic Eyes EOM: EOMs intact bilaterally Resp Effort & Inspection: normal respiratory effort and able to speak in complete sentences Cardio Jugular venous distension: no JVD Skin General skin exam: turgor normal Rashes: no rashes Neuro General: patient oriented x3 Extrem Other: 70-100 deg of motion firing wrist and finger extensors but still no EPL 30-70 smooth sup/pro Psych Appearance: grossly normal Affect: normal affect Attitude: cooperative Results Reviewed Results Reviewed: I personally reviewed relevant radiographs. No hardware complications No change in alignment Assessment & Plan Assessment & Plan (1) Fracture of left ulna, shaft: Code(s): S52.202A - Unspecified fracture of shaft of left ulna, initial encounter for closed fracture Qualifiers: Encounter type: initial encounter Fracture morphology: unspecified fracture morphology Fracture type: closed Qualified Code(s): S52.202A - Unspecified fracture of shaft of left ulna, initial encounter for closed fracture Plan: Aggressive ROM with PT Dynasplint for flex/ex ordered f/u 4 weeks (2) Fracture of distal end of left humerus: Code(s): S42.402A - Unspecified fracture of lower end of left humerus, initial encounter for closed fracture Qualifiers: Encounter type: initial encounter Fracture alignment: nondisplaced Fracture morphology: other fracture Fracture type: closed Qualified Code(s): S42.495A - Other nondisplaced fracture of lower end of left humerus, initial encounter for closed fracture (3) Dislocation of left radial head: Code(s): S53.005A - Unspecified dislocation of left radial head, initial encounter Qualifiers: Encounter type: initial encounter Qualified Code(s): S53.005A - Unspecified dislocation of left radial head, initial encounter (4) 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 Orders: Orders XR elbow LT 2V 08/20/23 M25.529 - Pain in unspecified elbow PT Evaluation and Treatment 08/20/23 S42.402A - Unspecified fracture of lower end of left humerus, initial encounter for closed fracture, S52.202A - Unspecified fracture of shaft of left ulna, initial encounter for closed fracture, S53.005A - Unspecified dislocation of left radial head, initial encounter, S64.22XS - Injury of radial nerve at wrist and hand level of left arm, sequela Coding Level of Care Code Global (83319) Diagnoses Closed fracture of shaft of left ulna, unspecified fracture morphology, initial encounter S52.202A Encounter type: initial encounter Fracture morphology: unspecified fracture morphology Fracture type: closed Other closed nondisplaced fracture of distal end of left humerus, initial encounter S42.495A Encounter type: initial encounter Fracture alignment: nondisplaced Fracture morphology: other fracture Fracture type: closed Dislocation of left radial head, initial encounter S53.005A Encounter type: initial encounter Injury of radial nerve at wrist and hand level of left arm, sequela S64.22XS
== END 2023-08-20 09:46 | disposition home or self-care (01) ==
PROVIDERS: PCP Internal Medicine Medical Oncology; Visit Provider Orthopaedic Surgery
DX: S52.202A Unspecified fracture of shaft of left ulna, initial encounter for closed fracture (principal); S42.495A Other nondisplaced fracture of lower end of left humerus, initial encounter for closed fracture; S53.005A Unspecified dislocation of left radial head, initial encounter; S64.22 Injury of radial nerve at wrist and hand level of left arm
CPT/HCPCS: 99024

== ENCOUNTER 2023-08-20 09:55 | Outpatient (AMB) | payer OTHER, SELFPAY ==
[2023-08-20 10:02] VITALS: BP 126/84
--- NOTE | 2023-08-20 10:02 | MHC.OFFVIS ---
Intake Vital Signs 08/20/23 10:02 Height 5 ft 4 in BP 126/84 Intake Visit Reasons: EMB Follow up Allergies No Known Allergies Allergy (Mild, Verified 08/20/23 08:59) NOT APPLICABLE HPI HPI Comments History of Present Illness Details The patient is presenting for follow-up to discuss the results of her abnormal uterine bleeding workup and options of treatment. The following workup was done.: H&H= 8.4/29.4 TSH, hCG, prolactin GC and chlamydia were negative. Endometrial biopsy pathology showed weakly proliferative endometrium with no evidence of hyperplasia and/or malignancy. Co testing was done was negative. Mammogram was BI-RADS 1. Pelvic ultrasound showed the following: Uterus: The uterus is anteverted, anteflexed and measures 10.5 x 6.1 x 7.4 cm. There are at least 3 hypoechoic areas consistent with fibroid. The largest along the posterior body of uterus measures 5.0 x 3.5 x 3.9 cm. A small lesion along the right superior fundus measures 1.2 x 1.2 x 1.9 cm. Third lesion along the right upper lateral uterus measures 2.6 x 2.5 x 3.1 cm. No additional lesions seen The double wall endometrial thickness measures 0.4 cm. Adnexa: Both ovaries are visualized. There is normal color flow to the adnexa. There is no ovarian torsion. There is no pelvic ascites or fluid collection. Right ovary measures 4.3 x 3.6 x 2.7) cm. Volume 22.7 mL. There is anechoic cyst measuring 2.9 x 2.3 x 2.2 cm. Left ovary measures 4.1 x 2.6 x 2.7 cm. Volume 15.1 cm. There is a complex anechoic cyst with internal septation measuring 2.4 x 1.7 x 2.4 cm. There is no free fluid in cul-de-sac. [facility] Medical History Atypical hyperplasia of right breast Breast calcification, right Surgical History History of surgery on arm History of lumpectomy of right breast Hx of wisdom tooth extraction No pertinent past surgical history Family History Maternal Grandmother Lung cancer Social History Household Members: Spouse and Children Housing: House Do you presently have visiting nurse or other home services: No Alcohol intake: never Patient Tobacco Use Status: Never used Tobacco service: No Female Reproductive History Menstrual Age of Menarche: 11 Review of Systems Const All systems reviewed & are unremarkable except as noted in HPI and below Reports as per HPI and Reports no additional complaints GI Reports no additional complaints Reports no additional complaints Physical Exam Vital Signs: Last Vital Signs BP 126/84 08/20/23 10:02 Assessment & Plan Assessment & Plan (1) Abnormal uterine bleeding (AUB): Comment: History of atypical ductal hyperplasia Code(s): N93.9 - Abnormal uterine and vaginal bleeding, unspecified Plan: Discussed with the patient the results of the work up done and options of treatment including Lysteda, BCP's and Mirena IUD (are associated with increased risk of breast cancer therefore contraindicated with her given her history of atypical ductal hyperplasia), endometrial ablation and hysterectomy. All pros, cons, risks and benefits if each option was discussed with the patient and the patient decided to think about it and get back to us. All questions answered the patient verbalized understanding. (2) Uterine myoma: Code(s): D25.9 - Leiomyoma of uterus, unspecified Plan: Discussed with the patient the results of the ultrasound and the size of the myomas has increased in size from 2.2 cm in December of 2019 up to 3.4 cm in 12/06. Discussed with the patient risk of myosarcoma and symptoms that are caused by myomas including but not limited to pelvic pain, pressure symptoms, abnormal uterine bleeding. In addition discussed with the patient options of treatment for myomas including: Serial ultrasounds periodically to follow-up on the size of the myoma while targeting the treatment against fibroids related symptoms ( control pills, Mirena IUD, progesterone treatment, GnRH agonist/antagonist, uterine artery embolization or endometrial ablation) versus surgical treatment including hysterectomy and or myomectomy. All pros and cons, risks and benefits of all options were discussed with the patient. The patient understands that delay in surgical treatment in case of myosarcoma can affect her prognosis, after further discussion, the patient decided to think about it and get back to us next visit (3) Complex ovarian cyst: Code(s): N83.299 - Other ovarian cyst, unspecified side Plan: Ultrasound to be scheduled within 1-2 weeks co will check the results and treat accordingly. Instructions given to the patient to schedule a follow-up in 1-2 weeks Coding Level of Care Code Est Pt Level 3 (27447) Diagnoses Abnormal uterine bleeding (AUB) N93.9 Uterine myoma D25.9 Complex ovarian cyst N83.299
== END 2023-08-20 10:31 | disposition home or self-care (01) ==
LOC: HO.HWS 09:55
PROVIDERS: PCP Internal Medicine Medical Oncology; Visit Provider Obstetrics & Gynecology
DX: N93.9 Abnormal uterine and vaginal bleeding, unspecified (principal); D25.9 Leiomyoma of uterus, unspecified; N83.299 Other ovarian cyst, unspecified side
CPT/HCPCS: 99213

== ENCOUNTER 2023-08-20 11:24 | Outpatient (REF) | payer OTHER, SELFPAY ==
--- NOTE | ~2023-08-20 | XR_ITS ---
EXAMINATION: XR ELBOW, LEFT CLINICAL INFORMATION: Pain unspecified elbow. COMPARISON: 07/27/2023 TECHNIQUE: Four views of the left elbow. FINDINGS: Redemonstration of extensive orthopedic hardware including 2 fixation plates overlying the distal humerus, 2 fixation plates overlying the proximal ulna and multiple transverse screws. Hardware appears intact. Redemonstration of comminuted distal humeral and proximal ulnar fracture with near anatomic alignment. Fracture lines are visible, but slightly less distinct, suggesting some interval healing. XR/XR elbow LT 2V IMPRESSION: Healing comminuted distal humeral and proximal ulnar fractures. Orthopedic hardware appears intact.
== END 2023-08-20 11:25 | disposition home or self-care (01) ==
LOC: HO.HOSX 11:24
PROVIDERS: Visit Provider Orthopaedic Surgery
DX: M25.522 Pain in left elbow (principal); N93.9 Abnormal uterine and vaginal bleeding, unspecified; D25.9 Leiomyoma of uterus, unspecified; N83.299 Other ovarian cyst, unspecified side
CPT/HCPCS: 73070

== ENCOUNTER 2023-08-27 13:39 | Outpatient (REF) | payer OTHER, SELFPAY ==
--- NOTE | ~2023-08-27 | US_ITS ---
EXAMINATION: US PELVIS CLINICAL INFORMATION: Ovarian cysts. COMPARISON: Ultrasound pelvis 07/08/2023. TECHNIQUE: Ultrasound of the pelvis is performed using both transabdominal and transvaginal transducers along with Doppler. Transvaginal imaging is performed due to inadequate visualization transabdominally. FINDINGS: Uterus: The uterus is anteverted and measures 9.8 x 5.6 x 6.6 cm and is again noted to contain multiple fibroids ranging in size from 1.5 cm to 2.4 cm. One fibroid that had measured 5 cm at the time of the prior study measures 2.1 cm on the current exam. Some of this may be due to the fact that endovaginal imaging was not utilized previously. The double wall endometrial thickness is 17 mm. The uterus is smooth in contour and has normal myometrial echogenicity. No visible fibroid. Adnexa: Both ovaries are visualized. There is normal color flow to the adnexa. There is no ovarian torsion. There is no pelvic ascites or fluid collection. Right ovary measures 4.7 x 2.8 x 3.1 cm for a volume of 21.3 mL which includes a 2.4 cm cyst. Left ovary measures 4.9 x 2.3 x 3.6 cm for a volume of 21.2 mL which includes a 1.5 cm cyst. The left ovarian cyst previously appeared complex with multiple septations. At this point in time, the cyst appears simple containing only fluid. US/US pelvic and transvaginal IMPRESSION: 1. Uterine fibroids again seen. 2. Bilateral ovarian cysts. The left ovarian cyst previously appeared more complex and now appears simple. No further follow up is needed. 3. Thickened endometrial stripe at 17 mm. This is almost certainly related to the patient's menstrual cycle as previously this measured only 4 mm. A follow up study in 6 weeks is recommended to assure resolution of the endometrial thickening and to see if this persists at that time.
== END 2023-08-27 13:40 | disposition home or self-care (01) ==
LOC: HO.HMGCX 13:39
PROVIDERS: PCP Internal Medicine Medical Oncology; Visit Provider Obstetrics & Gynecology
DX: N83.299 Other ovarian cyst, unspecified side (principal)
CPT/HCPCS: 76830; 76856

== ENCOUNTER 2023-09-10 09:54 | Outpatient (AMB) | payer OTHER, SELFPAY ==
--- NOTE | 2023-09-10 09:59 | A.OFFVIS_ITS ---
Intake Vital Signs 09/10/23 10:00 Height 5 ft 4 in Weight 152 lb 1.903 oz BMI 26.1 BP 124/82 Intake Visit Reasons: US follow up Allergies No Known Allergies Allergy (Mild, Verified 08/20/23 08:59) NOT APPLICABLE HPI HPI Comments History of Present Illness Details Presenting for follow-up pelvic ultrasound which showed the following: Uterus: The uterus is anteverted and measures 9.8 x 5.6 x 6.6 cm and is again noted to contain multiple fibroids ranging in size from 1.5 cm to 2.4 cm. One fibroid that had measured 5 cm at the time of the prior study measures 2.1 cm on the current exam. Some of this may be due to the fact that endovaginal imaging was not utilized previously. The double wall endometrial thickness is 17 mm. The uterus is smooth in contour and has normal myometrial echogenicity. No visible fibroid. Adnexa: Both ovaries are visualized. There is normal color flow to the adnexa. There is no ovarian torsion. There is no pelvic ascites or fluid collection. Right ovary measures 4.7 x 2.8 x 3.1 cm for a volume of 21.3 mL which includes a 2.4 cm cyst. Left ovary measures 4.9 x 2.3 x 3.6 cm for a volume of 21.2 mL which includes a 1.5 cm cyst. The left ovarian cyst previously appeared complex with multiple septations. At this point in time, the cyst appears simple containing only fluid. The patient is doing well with no complaints no pelvic pain, pressure or abnormal uterine bleeding. [facility] Medical History Atypical hyperplasia of right breast Breast calcification, right Surgical History History of surgery on arm History of lumpectomy of right breast Hx of wisdom tooth extraction No pertinent past surgical history Family History Maternal Grandmother Lung cancer Social History Household Members: Spouse and Children Housing: House Do you presently have visiting nurse or other home services: No Alcohol intake: never Patient Tobacco Use Status: Never used Tobacco service: No Female Reproductive History Menstrual Age of Menarche: 11 Date of last menstrual period: 08/31/23 Review of Systems Const All systems reviewed & are unremarkable except as noted in HPI and below Reports as per HPI and Reports no additional complaints GI Reports no additional complaints Reports no additional complaints Physical Exam Vital Signs: Last Vital Signs BP 124/82 09/10/23 10:00 BMI result Body Mass Index 26.1 Assessment & Plan Assessment & Plan (1) Complex ovarian cyst: Comment: Resolved Code(s): N83.299 - Other ovarian cyst, unspecified side Plan: Discussed with the patient ultrasound findings showing the previously identified complex cyst has resolved. The patient was instructed to call if symptoms recur. All questions were answered the patient verbalized understanding. (2) Uterine myoma: Code(s): D25.9 - Leiomyoma of uterus, unspecified Plan: Discussed with the patient the findings on pelvic ultrasound & the risk of myosarcoma; discussed with the patient the options of treatment including expectant management versus hysterectomy; the pros and cons, risks benefits of each approach were discussed with the patient including the fact that in cases of myosarcoma, surgical treatment can lead to early diagnosis and positively affects the prognosis; after further discussion, the patient decided to proceed with expectant management. Will repeat pelvic ultrasound periodically. Instructions given to patient to call in case any of the following occurs: pressure symptoms, abnormal uterine bleeding, pelvic pain; and to schedule a future office follow-up appointment for reassessment and to order a repeat ultrasound . All questions answered, the patient verbalized understanding and agreed with the plan . Coding Level of Care Code Est Pt Level 3 (89212) Diagnoses Complex ovarian cyst N83.299 Uterine myoma D25.9
[2023-09-10 10:00] VITALS: BP 124/82; BMI 26.1
== END 2023-09-10 10:19 | disposition home or self-care (01) ==
PROVIDERS: PCP Internal Medicine Medical Oncology; Visit Provider Obstetrics & Gynecology
DX: N83.299 Other ovarian cyst, unspecified side (principal); D25.9 Leiomyoma of uterus, unspecified
CPT/HCPCS: 99213

== ENCOUNTER → 2023-09-10 09:54 | Outpatient (BNVA) | payer OTHER, SELFPAY | PROVIDERS: PCP Internal Medicine Medical Oncology; Visit Provider Obstetrics & Gynecology ==

== ENCOUNTER 2023-09-17 08:30 | Outpatient (REF) | payer OTHER, SELFPAY ==
--- NOTE | ~2023-09-17 | XR_ITS ---
EXAMINATION: XR HUMERUS, LEFT XR ELBOW, LEFT CLINICAL INFORMATION: Follow-up distal humeral and proximal ulnar fractures. COMPARISON: Prior radiographs, most recently 08/20/2023. TECHNIQUE: AP and lateral views of the left humerus. AP, lateral, and oblique views of the left elbow. FINDINGS: Again, there are fixator plates and screws applied to the distal left humerus bilaterally and to the mid and proximal left ulna. There is near-anatomic alignment of comminuted distal humeral and proximal ulnar fractures. No hardware failure or loosening is seen. Mild periosteal callus formation is seen at both fracture sites. There is no focal soft tissue swelling, gas or foreign body. XR/XR humerus LT IMPRESSION: There is well-maintained alignment of healing comminuted distal left humeral and proximal left ulnar fractures. No hardware failure or loosening is seen.
--- NOTE | ~2023-09-17 | XR_ITS ---
EXAMINATION: XR HUMERUS, LEFT XR ELBOW, LEFT CLINICAL INFORMATION: Follow-up distal humeral and proximal ulnar fractures. COMPARISON: Prior radiographs, most recently 08/20/2023. TECHNIQUE: AP and lateral views of the left humerus. AP, lateral, and oblique views of the left elbow. FINDINGS: Again, there are fixator plates and screws applied to the distal left humerus bilaterally and to the mid and proximal left ulna. There is near-anatomic alignment of comminuted distal humeral and proximal ulnar fractures. No hardware failure or loosening is seen. Mild periosteal callus formation is seen at both fracture sites. There is no focal soft tissue swelling, gas or foreign body. XR/XR elbow LT 2V IMPRESSION: There is well-maintained alignment of healing comminuted distal left humeral and proximal left ulnar fractures. No hardware failure or loosening is seen.
== END 2023-09-17 08:31 | disposition home or self-care (01) ==
LOC: HO.HOSX 08:30
PROVIDERS: Visit Provider Orthopaedic Surgery
DX: S64.22 Injury of radial nerve at wrist and hand level of left arm (principal); S42.495D Other nondisplaced fracture of lower end of left humerus, subsequent encounter for fracture with routine healing; S52.202D Unspecified fracture of shaft of left ulna, subsequent encounter for closed fracture with routine healing
CPT/HCPCS: 73060; 73070

== ENCOUNTER 2023-09-17 08:58 | Outpatient (AMB) | payer OTHER, SELFPAY ==
--- NOTE | 2023-09-17 09:21 | A.OFFVIS_ITS ---
Intake Intake Visit Reasons: PO-ORIF Left Elbow 07/14/23 -Follow up Intake Note: Elda is a 42 year old who presents today for a post operative appointment s/p Left Distal Humerus & Ulnar Shaft ORIF 07/14/23. A KEN splint for flexion and extension was ordered, as well as aggressive ROM PT. She did recieve kwame ken splint, she is using the flexion but has not yet used the extension Allergies No Known Allergies Allergy (Mild, Verified 08/20/23 08:59) NOT APPLICABLE HPI PO-ORIF Left Elbow 07/14/23 -Follow up HPI Details Elda is a 42 year old right hand dominant woman who presents ~3 months S/P left Distal humerus ORIF with olecranon osteotomy, & ulnar shaft ORIF. She says she is doing well. She has been wearing her Dynasplint brace for elbow flexion, but has yet to use one for extension. She has been working with OT on her ROM. [facility] Medical History Atypical hyperplasia of right breast Breast calcification, right Surgical History History of surgery on arm History of lumpectomy of right breast Hx of wisdom tooth extraction No pertinent past surgical history Family History Maternal Grandmother Lung cancer Social History Household Members: Spouse and Children Housing: House Do you presently have visiting nurse or other home services: No Alcohol intake: never Patient Tobacco Use Status: Never used Tobacco service: No Female Reproductive History Menstrual Age of Menarche: 11 Review of Systems Const All systems reviewed & are unremarkable except as noted in HPI and below Physical Exam Const General: no acute distress, alert and awake Orientation/consciousness: patient oriented x3 HEENT Head: Yes normocephalic and Yes atraumatic Eyes EOM: EOMs intact bilaterally Resp Effort & Inspection: normal respiratory effort and able to speak in complete sentences Cardio Jugular venous distension: no JVD Skin General skin exam: turgor normal Rashes: no rashes Neuro General: patient oriented x3 Extrem Other: 50-100 deg of motion 70 pro/25 sup Wrist extension improved from prior but still no finger ext or EPL active Inc c/d/i Psych Appearance: grossly normal Affect: normal affect Attitude: cooperative Results Reviewed Results Reviewed: I personally reviewed relevant radiographs. There is well-maintained alignment of healing comminuted distal left humeral and proximal left ulnar fractures. No hardware failure or loosening is seen. 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 No additional intervention warranted at this time. Is working with OT. (2) Dislocation of left radial head: Code(s): S53.005A - Unspecified dislocation of left radial head, initial encounter Qualifiers: Encounter type: initial encounter Qualified Code(s): S53.005A - Unspecified dislocation of left radial head, initial encounter Plan: Reduced. Instructed on additional home exercise for extension and supination both of which are lacking. (3) Fracture of distal end of left humerus: Code(s): S42.402A - Unspecified fracture of lower end of left humerus, initial encounter for closed fracture Qualifiers: Encounter type: initial encounter Fracture type: closed Fracture morphology: other fracture Fracture alignment: nondisplaced Qualified Code(s): S42.495A - Other nondisplaced fracture of lower end of left humerus, initial encounter for closed fracture Plan: Continue aggressive OT (4) Fracture of left ulna, shaft: Code(s): S52.202A - Unspecified fracture of shaft of left ulna, initial encounter for closed fracture Qualifiers: Encounter type: initial encounter Fracture type: closed Fracture morphology: unspecified fracture morphology Qualified Code(s): S52.202A - Un specified fracture of shaft of left ulna, initial encounter for closed fracture Plan Prepared for Jim Luque MD by David Barton, medical record administrator, on 09/17/23 at 9:31 AM, EST. 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
== END 2023-09-17 10:02 | disposition home or self-care (01) ==
PROVIDERS: PCP Internal Medicine Medical Oncology; Visit Provider Orthopaedic Surgery
DX: S64.22 Injury of radial nerve at wrist and hand level of left arm (principal); S53.005A Unspecified dislocation of left radial head, initial encounter; S42.495A Other nondisplaced fracture of lower end of left humerus, initial encounter for closed fracture; S52.202A Unspecified fracture of shaft of left ulna, initial encounter for closed fracture
CPT/HCPCS: 99024

== ENCOUNTER 2023-10-30 11:00 | Outpatient (RCR) | payer OTHER, SELFPAY ==
--- NOTE | 2023-07-28 15:33 | MHC.OT.EP ---
[address] [phone] Occupational Therapy Plan of Care Patient Name: Elda Koch Date of Evaluation: 07/28/23 Diagnosis: Left radial head fx-dislocation; left humerus fx Pain Location: Left wrist, posterior elbow Pain Score: 5 Pain Scale Used: Numeric (0 - 10) Aggravating Factors: activity, sleep Alleviating Factors: Pain meds 2x/day for sleep and housework/activity, ice Assessment: 42 yo female slipped and fell in the snow about one month ago, resulting in left ulnar fx and radial head dislocation and left humerus fx. She is post-op repair w/ ORIF distal humerus intra-articular fracture with olecranon osteotomy, ORIF ulnar shaft fracture 07/14/23 and now referred to OT for further assessment and management. She presents to OT w/ Donjoy brace locked at 60-90 and has been cleared to increase range by 15 degrees weekly. On assessment, surgical incision is clean and dry w/ intact steristrips. Elbow range limited about 60-90 and guarded, but does well w/ deep breathing for muscle relaxation and inhibition. She has moderate edema still in hand. wrist and arm, with limited active thumb, digit and wrist extension due to radial nerve injury. We have fabricated protective resting wrist orthosis and educated on exercises for digits and wrist. She will benefit from cont'd therapy services to progress range, edema and scar management and general protection of repair w/ progress of strengthening and functional use as appropriate. Frequency and Duration: The patient will be seen 2x/wk for 8 weeks Short Term Goals: Pt to complete upper body washing/dressing w/ good virgie techniques, brace removed for self care AAROM elbow flex to 110 AAROM elbow ext to 40 Wrist flex 50 Wrist ext 50 Pt to demo active digit ext to zero Pt to demo active thumb ext to zero Pt to demo good use of left hand w/ light bimanual tasks (buttons, toothpaste tube, etc) Belt Picker Goals: Left gross grasp >40lb Elbow ext <15 degrees Elbow flex >135 degrees Wrist flex 70 Wrist ext 70 Pt to demo good use of left arm w/ light/moderate bimanual IADL tasks QuickDASH score <40 Treatment Plan: Therapeutic Exercise Therapeutic Activity Home Exercise Program Splinting Patient Education Edema Control ADL Training NMES Fluidotherapy MHP Cold Packs Soft Tissue Mobilization Kinesiotaping Electronically Signed By: Tonie Guzman OTR/L CHT Please Sign and return to therapist. Thank you once again for your referral.
--- NOTE | 2023-08-18 14:30 | MHC.OT.OP ---
[address] [phone] F: [phone] Occupational Therapy Progress Note Patient Name: Elda Koch Diagnosis: Left radial head fx-dislocation; left humerus fx Date of Surgery: 07/14/23 Date of Evaluation: 07/28/23 Treatments to Date: 7 Subjective: It feels like it's blocked Pain Score: 7 Pain Location: left elbow and wrist Objective Measures: ROM: elbow ext/flex 32/72 -> 22/80 after heat and stretch pro/sup 60/35 wrist ext/flex 70/45 Status: Progressing Assessment: 5 weeks post op: Good follow through w/ hinge brace and wrist/hand orthosis wear. Improved active wrist extension noted, trace thumb and MCP extension - now wearing hand based orthosis for MCP support and free movement of left wrist. Improving elbow extension in protected range, very guarded w/ flexion - significantly limited. 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
--- NOTE | 2023-09-15 15:31 | MHC.OT.OP ---
[address] [phone] F: [phone] Occupational Therapy Progress Note Patient Name: Elda Koch Diagnosis: Left radial head fx-dislocation; left humerus fx Date of Surgery: 07/14/23 Date of Evaluation: 07/28/23 Treatments to Date: 14 Subjective: I'm back to work 7-4, I'm wearing the (flexion) splint about 2 hours a day at work, but my arm has just been really sore and it's uncomfortable Pain Score: 7 Pain Location: left posterior elbow Objective Measures: Elbow ROM: Ext 30 -> 22 degrees post treatment Flex 80->95 degrees post treatment Status: Progressing Slowly Assessment: 9 weeks post op: Slow gains made with flexion and extension. Therapist working on joint mobilization and passive stretches w/ integration of deep tissue massage. She is maintaining extension to about 30, improving w/ stretch during therapy, but flexion still very tight and limited. She has been wearing flexion dynasplint inconsistently about 2 hrs a day, we are encouraging increased wear time for full benefits. Still w/ weak wrist and hand extensors, left hand not functionally for fine motor tasks at this time. Short Term Goals: Pt to complete upper body washing/dressing w/ good virgie techniques, brace removed for self care AAROM elbow flex to 110 AAROM elbow ext to 40 Wrist flex 50 Wrist ext 50 Pt to demo active digit ext to zero Pt to demo active thumb ext to zero Pt to demo good use of left hand w/ light bimanual tasks (buttons, toothpaste tube, etc) Shoe Turner Goals: Left gross grasp >40lb Elbow ext <15 degrees Elbow flex >135 degrees Wrist flex 70 Wrist ext 70 Pt to demo good use of left arm w/ light/moderate bimanual IADL tasks QuickDASH score <40 Frequency and Duration: The patient will be seen 2-3x/wk for 6 weeks Treatment Plan: Therapeutic Exercise Therapeutic Activity Home Exercise Program Splinting Patient Education Edema Control NMES MHP Cold Packs Joint Mobilization Soft Tissue Mobilization Kinesiotaping Electronically Signed By: Tonie Guzman OTR/L CHT Reviewed/agree with student documentation: Therapist:
--- NOTE | 2023-11-02 09:49 | MHC.OT.DC ---
[address] [phone] F: [phone] Occupational Therapy Discharge Note Patient Name: Elda Koch Provider: Erin Moreno PA-C Diagnosis: Left radial head fx-dislocation; left humerus fx Date of Surgery: 07/14/23 Date of Evaluation: 07/28/23 Date of Discharge: 10/30/23 Treatments to Date: 26 Discharge Summary: Elda is now about 15.5 wks post-op elbow repair. She has had plateau in improvement in elbow ROM over the past several weeks w/ poor compliance with exercise and splint wear. We are able to make gains during therapy w/ aggressive mobilization and stretching, but no carryover between visits. She is Ind w/ home program and understands tools for self management, but we will be discharging from outpatient services at this time. Electronically Signed By: Tonie Guzman OTR/L CHT Please Sign and return to therapist, thank you for your referral.
== END 2024-01-12 14:04 | disposition home or self-care (01) ==
LOC: HO.OT 11:00
PROVIDERS: PCP Internal Medicine Medical Oncology; Visit Provider Physician Assistant
DX: S53.005A Unspecified dislocation of left radial head, initial encounter (principal); S42.402A Unspecified fracture of lower end of left humerus, initial encounter for closed fracture; S52.202A Unspecified fracture of shaft of left ulna, initial encounter for closed fracture
CPT/HCPCS: 29105; 29125; 29130; 97035; 97110; 97140; 97166; 97760

== ENCOUNTER 2023-11-19 08:33 | Outpatient (REF) | payer OTHER, SELFPAY ==
--- NOTE | ~2023-11-19 | XR_ITS ---
EXAMINATION: XR ELBOW, LEFT CLINICAL INFORMATION: Elbow pain COMPARISON: 09/17/2023 elbow radiographs TECHNIQUE: AP, lateral, and oblique views of the left elbow. FINDINGS: Status post ORIF of the humerus and ulna in similar alignment fixating healing comminuted fractures of the humerus and ulna with persistent lucency all of the fracture margins in the distal humerus. No evidence of hardware fracture or complication. Soft tissues are unremarkable. XR/XR elbow LT 2V IMPRESSION: Status post ORIF of the humerus and ulna in similar alignment fixating healing comminuted fractures of the humerus and ulna with persistent lucency all of the fracture margins in the distal humerus.
== END 2023-11-19 08:34 | disposition home or self-care (01) ==
LOC: HO.HOSX 08:33
PROVIDERS: PCP Internal Medicine Medical Oncology; Visit Provider Orthopaedic Surgery
DX: S42.495A Other nondisplaced fracture of lower end of left humerus, initial encounter for closed fracture (principal); S52.202A Unspecified fracture of shaft of left ulna, initial encounter for closed fracture
CPT/HCPCS: 73070

== ENCOUNTER 2023-11-19 08:33 | Outpatient (AMB) | payer OTHER, SELFPAY ==
--- NOTE | 2023-11-19 08:49 | A.OFFVIS_ITS ---
Intake Intake Visit Reasons: PO-ORIF Left Elbow Intake Note: Elda is a 42 year old who presents today for a post operative appointment s/p Left Distal Humerus & Ulnar Shaft ORIF 07/14/23. At her last visit she was instructed to continue aggressive OT. She reports that she discontinued use of the kole splint as it increased pain and swelling, she no longer works with formal PT/OT. Her extension has been improving however flexion is still limited and she is also struggling with above the head ROM of the shoulder. Allergies No Known Allergies Allergy (Mild, Verified 08/20/23 08:59) NOT APPLICABLE HPI PO-ORIF Left Elbow HPI Details Elda is a 42 year old who presents today for a post operative appointment s/p Left Distal Humerus & Ulnar Shaft ORIF 07/14/23. At her last visit she was instructed to continue aggressive OT. She reports that she discontinued use of the kole splint as it increased pain and swelling, she no longer works with formal PT/OT. Her extension has been improving however flexion is still limited and she is also struggling with above the head ROM of the shoulder. [facility] Medical History Atypical hyperplasia of right breast Breast calcification, right Surgical History History of surgery on arm History of lumpectomy of right breast Hx of wisdom tooth extraction No pertinent past surgical history Family History Maternal Grandmother Lung cancer Social History Household Members: Spouse and Children Housing: House Do you presently have visiting nurse or other home services: No Alcohol intake: never Patient Tobacco Use Status: Never used Tobacco service: No Female Reproductive History Menstrual Age of Menarche: 11 Physical Exam Extrem Other: Sensation intact to light touch left hand Extending the thumb and digits comfortably. 45-75 deg active motion 40-90 deg passive motion 70/70 supination pronation inc c/d/i Results Reviewed Results Reviewed: I personally reviewed relevant radiographs. Left elbow hardware intact. Healing fractures. The ulnar fracture line is not visible but the distal humeral fracture lines are Assessment & Plan Assessment & Plan (1) Fracture of distal end of left humerus: Code(s): S42.402A - Unspecified fracture of lower end of left humerus, initial encounter for closed fracture Qualifiers: Encounter type: initial encounter Fracture type: closed Fracture morphology: other fracture Fracture alignment: nondisplaced Qualified Code(s): S42.495A - Other nondisplaced fracture of lower end of left humerus, initial encounter for closed fracture Plan: 41-year-old woman who is 5 months status post the ORIF distal humerus and forearm fractures with olecranon osteotomy. She is healed well in her AIN palsy has resolved. She is stiff and has been difficult for her to push forward with physical therapy because of pain and swelling. I recommend manipulation under anesthesia. I discussed with her the likelihood that she will require further surgery to get her motion restored but that a manipulation under anesthesia certainly reasonable option at this point. I think hardware removal would be the next step if SERGE is not helpful. .I discussed the risks benefits and alternatives including but not limited to the risk of pain, infection, stiffness, need for further surgery as well as potential medical complications such as blood clots, pulmonary embolism and cardiac complications. (2) Fracture of left ulna, shaft: Code(s): S52.A - Unspecified fracture of shaft of left ulna, initial encounter for closed fracture Qualifiers: Encounter type: initial encounter Fracture type: closed Fracture morphology: unspecified fracture morphology Qualified Code(s): S52.A - Unspecified fracture of shaft of left ulna, initial encounter for closed fracture Plan: SERGE Orders: Orders XR elbow LT 2V Today M25.529 - Pain in unspecified elbow Coding Level of Care Code Est Pt Level 4 (23762) Diagnoses Other closed nondisplaced fracture of distal end of left humerus, initial encounter S42.495A Encounter type: initial encounter Fracture type: closed Fracture morphology: other fracture Fracture alignment: nondisplaced Closed fracture of shaft of left ulna, unspecified fracture morphology, initial encounter S52.A Encounter type: initial encounter Fracture type: closed Fracture morphology: unspecified fracture morphology
== END 2023-11-19 09:38 | disposition home or self-care (01) ==
PROVIDERS: PCP Internal Medicine Medical Oncology; Visit Provider Orthopaedic Surgery
DX: S42.495A Other nondisplaced fracture of lower end of left humerus, initial encounter for closed fracture (principal); S52.202A Unspecified fracture of shaft of left ulna, initial encounter for closed fracture
CPT/HCPCS: 99214

== ENCOUNTER 2023-12-15 06:00 | Day surgery (SDC) | payer OTHER, SELFPAY ==
[2023-12-11 10:40] VITALS: BMI 26.1
--- NOTE | 2023-12-14 11:00 | HO.ANESPROP2 ---
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, sequela (Acute) Injury of nerve at wrist level (Acute) Dislocation of left radial head (Acute) Left radial head fracture (Acute) Fracture of distal end of left humerus (Acute) Fracture of left ulna, shaft (Acute) Fracture of left distal radius (Acute) Complex ovarian cyst (Acute) Abnormal uterine bleeding (AUB) (Acute) Atypical hyperplasia of right breast (Acute) Breast calcification, right (Acute) Past Medical History Medical History Atypical hyperplasia of right breast Breast calcification, right Family History Family History Maternal Grandmother Lung cancer Family history of problems with anesthesia: No Surgical History Surgical History (Updated 12/11/23 @ 10:40 by Chani Zhou RN) History of surgery on arm History of lumpectomy of right breast Hx of wisdom tooth extraction History of Problems with Anesthesia: No Social History Social History Household Members: Spouse and Children Housing: House Do you presently have visiting nurse or other home services: No Alcohol intake: never Patient Tobacco Use Status: Never used Tobacco service: No Meds Allergies Allergy/AdvReac Type Severity Reaction Status Date / Time No Known Allergies Allergy Mild NOT Verified 08/20/23 08:59 APPLICABLE Exam Height,Weight and Vital Signs: Height 5 ft 4 in Weight 68.946 kg Assessment and Plan Assessment Anesthesia Assessment: Chart Reviewed Final Anesthetic Review Family History of Problems with Anesthesia: No History of Problems with Anesthesia: No
[2023-12-15 06:08] VITALS: BMI 27.7
[2023-12-15 06:22] VITALS: BP 146/99; PULSE 71; RESP 16; TEMP 36.6; O2SAT 98
[2023-12-15 06:23] LABS: UPreg QC Valid YES; Urine Pregnancy NEGATIVE (NEGATIVE)
[2023-12-15] MEDS: Lactated Ringers 1,000 ML 100 ML IVCONT (06:31)
--- NOTE | 2023-12-15 07:28 | MHC.SHP ---
Pre-Procedural Eval Section A - 24 Hr Update-Section A only Date of Service: 12/15/23 The patient is an INPATIENT: No Changes since office visit: No Cold of Flu in the past 2 weeks, No New Medical Problems, No Changes in Medication and No Patient answered all questions The patient has been examined within 24 hours of the surgical procedure. The History & Physical has been completed within 30 days and I have reviewed it.: Yes Section B - Complete if H&P > 30 days Chief Complaint: Stiffness of left elbow, not elsewhere classified Allergies: Allergies Allergy/AdvReac Type Severity Reaction Status Date / Time No Known Allergies Allergy Mild NOT Verified 08/20/23 08:59 APPLICABLE Plan I have reviewed the history and physical and performed a pertinent physical examination on my patient. No changes have occurred unless specified. Time Spent With Patient Time: Total time managing care of this patient today ____ minutes.
--- NOTE | 2023-12-15 07:50 | P.OP_ITS ---
Operative Note Operative Note Date of Service: 12/15/23 Narrative: Date of Service: 12/15/23 Pre-op diagnosis: Left elbow post-traumatic stiffness Post-op diagnosis: same Procedure: SERGE left elbow Surgeon: Jim Luque MD Anesthesia: MAC and regional Was an Photo Print Specialist used for this Procedure?: No Estimated blood loss (mL): 0 IV fluids (mL): 200 Pathology: none sent Condition: stable Disposition: PACU Patient was brought to the operating room and placed supine on the surgical tab le. She was prepped and draped in standard sterile fashion and a time out was called to identify proper site, proper procedure. I then gently but firmly extended and flexed her left elbow. There was a hard stop at 90 deg of flexion. I was able to improve her extension to 25 deg from neutral. After several minutes of sustained force in both directions she was awakened from anesthesia and brought to the recovery room in stable condition. There were no known complications. Final ROM 25-90.
[2023-12-15 07:57] VITALS: BP 119/70; PULSE 82; RESP 14; TEMP 36.6; O2SAT 95
[2023-12-15 08:13] VITALS: BP 119/70; PULSE 66; RESP 16; O2SAT 95
[2023-12-15 08:28] VITALS: BP 115/77; PULSE 77; RESP 16; O2SAT 99
[2023-12-15 08:43] VITALS: BP 127/81; PULSE 74; RESP 18; TEMP 36.6; O2SAT 98
== END 2023-12-15 09:34 | disposition home or self-care (01) ==
PROVIDERS: Nurse Practitioner; PCP Internal Medicine Medical Oncology; Visit Provider Orthopaedic Surgery
PROC: (CPT 24300; principal; 2023-12-15 07:30)
DX: M25.622 Stiffness of left elbow, not elsewhere classified (principal); M25.522 Pain in left elbow; Z98.890 Other specified postprocedural states
CPT/HCPCS: 24300; 81025; J0131; J1885; J2250; J2704

== ENCOUNTER → 2023-12-15 06:00 | Outpatient (BNV) | payer OTHER, SELFPAY | PROVIDERS: PCP Internal Medicine Medical Oncology; Visit Provider Orthopaedic Surgery | DX: M25.622 Stiffness of left elbow, not elsewhere classified (principal) | CPT/HCPCS: 24300 ==

== ENCOUNTER 2023-12-24 13:42 | Outpatient (AMB) | payer OTHER, SELFPAY ==
--- NOTE | 2023-12-24 13:50 | MHC.OFFVIS ---
Intake Visit Reasons: PO LT elbow SERGE 12/15/23 NE Intake Note: Elda a 43 year old female who presents today for a post operative left elbow SERGE, DOS 12/15/23. Patient reports that she is doing well, states having a little discomfort. Allergies No Known Allergies Allergy (Mild, Verified 12/24/23 13:52) NOT APPLICABLE HPI HPI PO LT elbow SERGE 12/15/23 NE: Details: 43-year-old female who returns to the office today for post-op left elbow SERGE, 12/15/[address] Luque. She continues to have mild discomfort in her elbow however she is doing well overall. She is working on exercises as instructed. She has no concerns today. [facility] Medical History (Updated 12/24/23 @ 16:00 by Jim Luque MD) Atypical hyperplasia of right breast Breast calcification, right Surgical History History of surgery on arm History of lumpectomy of right breast Hx of wisdom tooth extraction Family History (Reviewed 11/19/23 @ 08:56 by Amelia Noel [facility]) Maternal Grandmother Lung cancer Social History Household Members: Spouse and Children Housing: House Do you presently have visiting nurse or other home services: No Alcohol intake: never Patient Tobacco Use Status: Never used Tobacco service: No Female Reproductive History Menstrual Age of Menarche: 11 Physical Exam Extrem Other: Left elbow: Surgical scar well healed. He is lacking 20 degrees in extension, flexion to 90 degrees. NVI. Assessment & Plan Assessment & Plan (1) Stiffness of left elbow joint: Code(s): M25.622 - Stiffness of left elbow, not elsewhere classified Category: Medical Plan: This is a 43-year-old woman with left elbow stiffness. She does feel like her extension is improved after the manipulation but her flexion still limited to 90 and this bothers her. She can not comb her hair or her contacts in and this disrupts the quality of her life. Her pain is minimal. I recommend removal of hardware and open lysis of adhesions. I discussed with her the risks, benefits and alternatives including the risk of infection, bleeding and nerve injury. She expressed understanding. We will proceed forward accordingly. Plan She will continue working on exercises as tolerated and increase activity as tolerated. She does understand that the most limiting ____in elbow extension ____ hardware and nature of fracture which may continue to limit her function. She does understand all this and she will see me back as needed. Patient Instructions: Scribed for Erin Moreno PA-C, by Cody Mcginnis, medical device sales consultant, on 12/24/2023 at 2:00 PM EST. Nicole, Erin Moreno PA-C, have personally reviewed and agree with the information entered by the scribe. Coding Level of Care Code Est Pt Level 4 (80828) Global (98179) Diagnoses Stiffness of left elbow joint M25.622
== END 2023-12-24 14:13 | disposition home or self-care (01) ==
PROVIDERS: PCP Internal Medicine Medical Oncology; Visit Provider Orthopaedic Surgery
DX: M25.622 Stiffness of left elbow, not elsewhere classified (principal)
CPT/HCPCS: 99024

== ENCOUNTER → 2023-12-24 13:42 | Outpatient (BNVA) | payer OTHER, SELFPAY | PROVIDERS: PCP Internal Medicine Medical Oncology; Visit Provider Physician Assistant ==

== ENCOUNTER 2024-01-19 12:53 | Outpatient (AMB) | payer OTHER, SELFPAY ==
--- NOTE | 2024-01-19 12:56 | MHC.OFFVIS ---
Intake Visit Reasons: Preop LT elbow KVNG/lysis of adhesions 01/27/24 NE Intake Note: Elda bright 43 year old female who presents today for a preoperative visit of left elbow KVNG/lysis of adhesions on 01/27/24 NE. Pain management agreement review and signed. Allergies No Known Allergies Allergy (Mild, Verified 12/24/23 13:52) NOT APPLICABLE HPI HPI Preop LT elbow KVNG/lysis of adhesions 01/27/24 NE: Details: 43-year-old female who presents in the office today for her preoperative history and physical exam prior to a left elbow removal of hardware and open lysis of adhesions to be performed on 01/27/[address] Jim Luque. Patient has no known allergy history. Patient is currently taking, as follows: -Ibuprofen 800 mg PO Q8H PRN Patient has a medical history, as follows: -Uterine myoma -Postoperative anemia -Complex ovarian cyst -Abnormal uterine bleeding -Atypical hyperplasia of right breast -Right breast calcification Patient has a surgical history, as follows: -Hx of wisdom teeth removal -Hx of lumpectomy of right breast -Hx of left arm ORIF; 06/2023. [facility] Medical History (Updated 12/24/23 @ 16:00 by Jim Luque MD) Atypical hyperplasia of right breast Breast calcification, right Surgical History History of surgery on arm History of lumpectomy of right breast Hx of wisdom tooth extraction Family History Maternal Grandmother Lung cancer Social History Household Members: Spouse and Children Housing: House Do you presently have visiting nurse or other home services: No Alcohol intake: never Patient Tobacco Use Status: Never used Tobacco service: No Female Reproductive History Menstrual Age of Menarche: 11 Review of Systems Const All systems reviewed & are unremarkable except as noted in HPI and below Physical Exam Const General: cooperative, healthy appearing, comfortable, no acute distress, well developed, alert and awake Orientation/consciousness: patient oriented x3 HEENT Head: Yes normal to inspection, Yes normocephalic and Yes atraumatic Eyes General: appearance normal, both eyes and all related structures Neck Neck: Yes normal visual inspection and Yes no lymphadenopathy Resp Effort & Inspection: normal respiratory effort and able to speak in complete sentences Cardio Rate: regular rate Peripheral pulses: Peripheral pulses 2+ throughout GI Inspection: Yes normal to inspection Palpation (GI): Soft to palpation Skin General skin exam: no rashes or lesions noted Neuro General: patient oriented x3 Extrem Other: Left elbow: Skin is clean, dry, and intact. Surgical scar well healed. He is lacking 20 degrees in extension, flexion to 90 degrees. NVI. Psych Mental Status: mental status grossly normal Assessment & Plan Assessment & Plan (1) Stiffness of left elbow joint: Code(s): M25.622 - Stiffness of left elbow, not elsewhere classified Category: Medical Plan Ms. Koch is a 43-year-old female who presents in the office today for her preoperative history and physical exam prior to a left elbow removal of hardware and open lysis of adhesions to be performed on 01/27/[address] Jim Luque. Patient has no known allergy history. Patient is currently taking, as follows: -Ibuprofen 800 mg PO Q8H PRN Patient has a medical history, as follows: -Uterine myoma -Postoperative anemia -Complex ovarian cyst -Abnormal uterine bleeding -Atypical hyperplasia of right breast -Right breast calcification Patient has a surgical history, as follows: -Hx of wisdom teeth removal -Hx of lumpectomy of right breast -Hx of left arm ORIF; 06/2023. I discussed in detail the procedure and what to expect pre and post operatively. We discussed the risks, benefits and alternatives to the surgery and the rehabilitation course. The risks include infection, bleeding, nerve injury, ongoing pain, swelling, and stiffness, perioperative risk of injury to bones and soft tissues, and blood clots. I have answered all questions and with their understanding they have consented to move forward with a left elbow removal of hardware and open lysis of adhesions to be performed on 01/27/[address] Jim Luque. Patient reports that she needed to send back the [employer] or she was going to be billed for it, I have placed a new order and have faxed the request to the company for it to be reissued. Follow-up will be at the post operative appointment on 02/04/2024 at 3:00 pm, or sooner if needed. Patient Instructions: Scribed by Charlene Rodeen, medical insurance claims specialist, for Sammie Rocky PA-C on 01/19/2024 at 1:05 pm, EST. Coding Level of Care Code Global (84296) Diagnoses Stiffness of left elbow joint M25.622
== END 2024-01-19 13:24 | disposition home or self-care (01) ==
PROVIDERS: PCP Internal Medicine Medical Oncology; Visit Provider Physician Assistant
DX: M25.622 Stiffness of left elbow, not elsewhere classified (principal)
CPT/HCPCS: 99024

== ENCOUNTER → 2024-01-19 12:53 | Outpatient (BNVA) | payer OTHER, SELFPAY | PROVIDERS: PCP Internal Medicine Medical Oncology; Visit Provider Physician Assistant ==

== ENCOUNTER 2024-01-27 09:13 | Day surgery (SDC) | payer OTHER, SELFPAY ==
--- NOTE | 2024-01-25 13:56 | HO.ANESPROP2 ---
Documented by User: Aury Fowler NP 01/25/24 13:57 HPI - Anesthesia Eval Consult details Narrative: 43yo F for Left Removal Orthopedic Hardware (plate and screw),lysis of adhesions s/p Left Elbow Manipulation 11/2023 with MAC s/p ORIF 06/2023 with GA-ETT 7 PMFSH Active Problems Active Problems: All Active Problems Stiffness of left elbow joint (Acute) Uterine myoma (Acute) Postoperative anemia (Acute) Injury of radial nerve at wrist and hand level of left arm, sequela (Acute) Injury of nerve at wrist level (Acute) Dislocation of left radial head (Acute) Left radial head fracture (Acute) Fracture of distal end of left humerus (Acute) Fracture of left ulna, shaft (Acute) Fracture of left distal radius (Acute) Complex ovarian cyst (Acute) Abnormal uterine bleeding (AUB) (Acute) Atypical hyperplasia of right breast (Acute) Breast calcification, right (Acute) Past Medical History Medical History Atypical hyperplasia of right breast Breast calcification, right Family History Family History Maternal Grandmother Lung cancer Family history of problems with anesthesia: No Surgical History Surgical History History of surgery on arm History of lumpectomy of right breast Hx of wisdom tooth extraction History of Problems with Anesthesia: No Social History Social History Household Members: Spouse and Children Housing: House Do you presently have visiting nurse or other home services: No Alcohol intake: never Patient Tobacco Use Status: Never used Tobacco Use of substances other than those prescribed or required for medical reasons: No Are you DNR?: No Advance Directives: No Advance Directives Information Provided: Yes service: No Meds Allergies Allergy/AdvReac Type Severity Reaction Status Date / Time No Known Allergies Allergy Mild NOT Verified 12/24/23 13:52 APPLICABLE Assessment and Plan Assessment Anesthesia Assessment: Chart Reviewed Final Anesthetic Review Family History of Problems with Anesthesia: No History of Problems with Anesthesia: No Documented by User: Lizette Blanchard MD 01/27/24 10:18 PMFSH Past Medical History Medical History Atypical hyperplasia of right breast Breast calcification, right Family History Family History Maternal Grandmother Lung cancer Surgical History Surgical History History of surgery on arm History of lumpectomy of right breast Hx of wisdom tooth extraction Social History Social History Household Members: Spouse and Children Housing: House Do you presently have visiting nurse or other home services: No Alcohol intake: never Patient Tobacco Use Status: Never used Tobacco Use of substances other than those prescribed or required for medical reasons: No Are you DNR?: No Advance Directives: No Advance Directives Information Provided: Yes service: No Meds Allergies Allergy/AdvReac Type Severity Reaction Status Date / Time No Known Allergies Allergy Mild NOT Verified 12/24/23 13:52 APPLICABLE Exam Airway Mallampati Class: II TM Dist: >3cm Neck ROM: Full Heart: rrr Lungs: cta Assessment and Plan Assessment Anesthesia Assessment: Anesthesia Plan Discussed Final Anesthetic Review NPO: Yes ASA Class: II Final Preanesthetic Review: No Changes in Pt Med Stat, Meds/Allgs Chart Reviewed, Consent Obtained/Reviewed and Anes Risks/Benef Reviewed Patient Risk: Low Procedure Risk: Intermediate Anesthetic Plan Anesthetic Plan: GA and Regional Block Disposition: Standard PACU
[2024-01-27] VITALS (9 sets, daily range): BP systolic 99–152; BP diastolic 60–88; PULSE 61–77; RESP 16–18; TEMP 36.2–36.8; O2SAT 95–99; BMI 26.9
--- NOTE | ~2024-01-27 | FL_ITS ---
EXAMINATION: XR FLUOROSCOPY WITH IMAGES CLINICAL INFORMATION: Hardware removal left elbow. COMPARISON: Left elbow radiographs 11/19/2023. TECHNIQUE: Fluoroscopy Supervised By: Dr. Jim Luque. Fluoroscopy Time: 0.1 minute. Cumulative Dose: 0.460 mGy. DAP: 0.56699 Gycm2. Images: 2. FINDINGS: Intraoperative fluoroscopy and spot films were performed during a procedure in the OR. 2 images demonstrate screws through the distal humerus as well as a single plate and screw device overlying the ulna with another spur extending from the olecranon to the coronoid proximally. At the time of the prior radiographs, plate and screw devices were seen overlying the distal humerus as well which are no longer present. In addition, only one plate and screw device is seen overlying the ulna whereas previously there had been 2. Please correlate with Dr. Jim Luque's report for complete details. FL/FL guidance in OR IMPRESSION: Intraoperative fluoroscopy and spot films were obtained. Please see Dr. Jim Luque's report for complete details.
[2024-01-27 09:31] LABS: UPreg QC Valid YES; Urine Pregnancy NEGATIVE (NEGATIVE)
--- NOTE | 2024-01-27 09:55 | MHC.SHP ---
Pre-Procedural Eval Section A - 24 Hr Update-Section A only Date of Service: 01/27/24 The patient is an INPATIENT: No Changes since office visit: No Cold of Flu in the past 2 weeks, No New Medical Problems, No Changes in Medication and No Patient answered all questions The patient has been examined within 24 hours of the surgical procedure. The History & Physical has been completed within 30 days and I have reviewed it.: Yes Section B - Complete if H&P > 30 days Chief Complaint: Stiffness of left elbow, not elsewhere classified Allergies: Allergies Allergy/AdvReac Type Severity Reaction Status Date / Time No Known Allergies Allergy Mild NOT Verified 12/24/23 13:52 APPLICABLE Plan I have reviewed the history and physical and performed a pertinent physical examination on my patient. No changes have occurred unless specified. Time Spent With Patient Time: Total time managing care of this patient today ____ minutes.
[2024-01-27] MEDS: Lactated Ringers 1,000 ML 100 ML IVCONT ×2 (09:59→18:18)
--- NOTE | 2024-01-27 15:39 | P.BOP_ITS ---
Brief Operative Note Date of Service: 01/27/24 Pre-op diagnosis: Left elbow post traumatic arthrofibrosis and retained orthopedic hardware Post-op diagnosis: same Procedure: KVNG, deep left humerus and left ulna open lysis of adhesions left elbow screw fixation left olecranon fracture Implants: 40mm 3.5 cortical screw x 1 Surgeon: Jim Luque MD Anesthesia: GETA and local Was an Snowblower Mechanic used for this Procedure?: Yes Snowblower Mechanic: Sammie Hidalgo Estimated blood loss (mL): 175 IV fluids (mL): 1,000 Pathology: none sent Condition: stable Disposition: PACU
--- NOTE | 2024-01-27 15:58 | PHA.MEDREC ---
Pharmacy Consult ? Medication Reconciliation Pharmacy has completed the medication reconciliation. Spoke to patient she stated she isn't on any medication.
--- NOTE | 2024-01-27 16:28 | P.DS_ITS ---
DS: Providers Provider Date of Service: 01/28/24 Primary care physician: Gaurav Foreman MD DS: Summary Hospital Course Hospital Course: The patient underwent a successful left elbow lysis of adhesions and removal of orthopedic hardware and screw fixation of the left olecranon, they were transferred to PACU and then to the floor to recover. During their stay, their vitals were stable, afebrile at 98.2. Prior to discharge, their dressing was clean dry and intact, and the plan was to be discharged home with out patient followup. Time Attestation Discharge Coordination Time (in mins): 30 Quality: Safe Use of Opioids Does Pt have an Active Cancer Diagnosis on the Problem List?: No Quality: Stroke Does the patient have a stroke diagnosis?: No Physical Exam Vital Signs: Vital Signs: Last Vital Signs Temp 97.9 F 01/27/24 14:56 Pulse 72 01/27/24 14:56 Resp 16 01/27/24 14:56 BP 131/72 01/27/24 14:56 Pulse Ox 95 01/27/24 14:56 O2 Del Method Room Air 01/27/24 14:56 O2 Flow Rate 6 01/27/24 13:51 BMI result Body Mass Index 26.9 Extrem: Other: left elbow dressings are c/d/i, able to flex and extend at the wrist. Sensation intact. Capillary refill is brisk. DS: Data Data Completed and Pending Labs on day of discharge: Laboratory Results - last 24 hr 01/27/24 09:20 Urine Test NEGATIVE Discharge Plan Discharge Patient Disposition: Home, Self-Care Referrals: Sammie Hidalgo PA-C [Physician Software Engineer Developer] - 02/04/24 3:00 pm Discharge Medications: New oxycodone-acetaminophen [Percocet] 5-325 mg tablet 1 tab PO Q4-6H PRN (Reason: pain (scale score 4-6)) 7 Days Qty: 42 0RF Rx Instructions: Partial Fill upon patient request. Discharge Orders: Discharge Order (Routine); Ordered 01/28/24 Ordered By: Sammie Hidalgo Diet: Advance to usual diet Activity on Discharge: Use Splints or Immobilizers Activity Restrictions/Additional Instructions: Wear sling for comfort No lifting, pushing, or pulling Gentle ROM okay Do not bathe or shower--keep incision site c/d/i Take Percocet 5/325mg tabs 1 tab by mouth every 4-6 hours as needed Call [facility] with any questions or concerns. Follow up with orthopedics in 7-10 days post op Print Language: Lao
[2024-01-27] MEDS: ceFAZolin Sodium/Dextrose,Iso 2 GM/50 ML PIGGYBACK IV (18:14)
[2024-01-27] MEDS: Docusate Sodium 100 MG CAPSULE PO (19:57)
[2024-01-27] MEDS: Celecoxib 200 MG CAPSULE PO (19:57)
[2024-01-27] MEDS: oxyCODONE HCl ER 10 MG TAB.ER.12H PO (19:57)
[2024-01-28] MEDS: Lactated Ringers 1,000 ML 100 ML IVCONT (03:10)
[2024-01-28 03:32] VITALS: BP 101/61; PULSE 64; RESP 16; TEMP 36.4; O2SAT 98
[2024-01-28] MEDS: Celecoxib 200 MG CAPSULE PO (07:23)
[2024-01-28] MEDS: oxyCODONE HCl ER 10 MG TAB.ER.12H PO (07:23)
[2024-01-28] MEDS: Docusate Sodium 100 MG CAPSULE PO (07:23)
[2024-01-28 08:00] VITALS: BP 114/66; PULSE 71; RESP 16; TEMP 36.2; O2SAT 98
--- NOTE | 2024-01-28 08:02 | HO.POSTANES ---
Post Anesthesia Evaluation Post Anesthesia Evaluation Date of Service: 01/28/24 Vital Signs: Vital Signs Temp Pulse Resp BP Pulse Ox O2 Del Method 01/28/24 03:32 97.5 F 64 16 101/61 98 Room Air 01/27/24 23:31 97.2 F 68 16 99/60 97 Room Air Anesthesia: General Mental Status: Awake Pain Control: Satisfactory Nausea/Vomiting: None Hydration: Adequate Anesthesia-Related Issues: No Anes. Related Issues
--- NOTE | 2024-01-28 09:08 | PM.PNORT ---
Subjective Subjective Date of Service: 01/28/24 Interval history: POD1 s/p left elbow removal of hardware, open lysis of adhesions and placement of plecranon screw Patient is resting in bed comfortably No overnight events Pain is managed - block still in effect No additional complaints Physical Exam Vital Signs: Vital Signs: Last Vital Signs Temp 97.1 F 01/28/24 08:00 Pulse 71 01/28/24 08:00 Resp 16 01/28/24 08:00 BP 114/66 01/28/24 08:00 Pulse Ox 98 01/28/24 08:00 O2 Del Method Room Air 01/28/24 08:00 O2 Flow Rate 6 01/27/24 13:51 BMI result Body Mass Index 26.9 Procedures Date of Service Date of Service: 01/28/24 Progress Note: A&P Assessment and plan (1) Stiffness of left elbow joint: Status: Acute Assessment and Plan: Continue pain mgmnt O.T - No PROM, AROM okay to tolerance Monitor pain managementonce block wears off Dispo planning-Pending OT eval, pain mgmnt (2) Injury of radial nerve at wrist and hand level of left arm, sequela: Status: Acute (3) Injury of nerve at wrist level: Status: Acute (4) Dislocation of left radial head: Status: Acute (5) Left radial head fracture: Status: Acute (6) Fracture of distal end of left humerus: Status: Acute (7) Fracture of left ulna, shaft: Status: Acute (8) Fracture of left distal radius: Status: Acute Time Spent With Patient Time: Total time managing care of this patient today ____ minutes. Quality Stroke Does the patient have a stroke diagnosis?: No VTE Prior VTE?: No VTE Risk Level:: Medical - moderate - high VTE Device Contraindication: N/A - Device Ordered VTE Drug Contraindication: N/A - Med Ordered
[2024-01-28 12:00] VITALS: BP 113/58; PULSE 75; RESP 18; TEMP 36.8; O2SAT 98
--- NOTE | 2024-01-28 12:18 | MHC.CM.PN ---
PT REPORTS SHE LIVES WITH HER AND IS INDEPENDENT WITH CARE SHE HAS NO DME AND NO SERVICES PT HAS A HCP ON FILE PCP: REYES WALKER DCP: HOME NO SERVICES VIA PRIVATE TRANSPORT
--- NOTE | 2024-01-28 13:40 | MHC.CM.PN ---
HOME - SELF CARE RN AWARE OF PLAN.
--- NOTE | 2024-03-08 09:27 | P.OP_ITS ---
Operative Note Operative Note Date of Service: 01/27/24 Narrative: Date of Service: 01/27/24 Pre-op diagnosis: Left elbow post traumatic arthrofibrosis and retained orthopedic hardware Post-op diagnosis: same Procedure: KVNG, deep left humerus and left ulna open lysis of adhesions left elbow screw fixation left olecranon fracture Implants: 40mm 3.5 cortical screw x 1 Surgeon: Jim Luque MD Anesthesia: GETA and local Was an Professor Computer Science used for this Procedure?: Yes Professor Computer Science: Sammie Hidalgo Estimated blood loss (mL): 175 IV fluids (mL): 1,000 Pathology: none sent Condition: stable Disposition: PACU Patient was brought to the operating room and placed prone on the surgical table. She was prepped and draped in standard sterile fashion and a time out was called to identify proper site, proper procedure and IV antibiotics per weight were administered. I began by opening up the long posterior incision. Starting distally I developed full thickness flaps down to the long olecranon plate. The olecranon screws and plate were removed and I debrided periartricular tissue adjacent to the olecranon medially and laterally using cautery and a ronguer. Care was taken to protect the ulnar nerve and the radial collaterals. A 3.5 cortical screw was placed across the proximal ulna fracture as I was worried that in attempts to improve flexion would stress the fracture. Thje fracture was largely healed but still visible with callous but there was no motion with elbow ROM. I was able to improve extension approximately 10 deg without the olecranon plate present. The remaining ulnar hardware was left in place as this was not inhibiting motion. I then extended the incision proximally and with a periosteal elevator removed the fibrous tissue from the medial and lateral column plates. The screws and plates were then removed without difficulty. I then used a cuba elevator to remove fibrous tissue from the fracture sits along the posterior border of the distal humerus. Again care was taken to avoid the NV structures medially. I was able to palpate near circumferentially around the distal humerus and there were no adhesion anteriorly but posteriorly and posterolaterally there was abundant adhesions that were excised with cautery and elevate off the bone with an elevator. I was able to obtain ~20-110 deg of motion. I was satisfied with the motion. I then irrigated copiously and closed the wound with absorbable suture and leora. The patient was palced in sterile dressings and extubated. She was brought to the recovery room in stable condition. There were no known complications.
== END 2024-01-28 13:56 | disposition home or self-care (01) ==
LOC: HO.SSS 09:14 → HO.S3 14:37
PROVIDERS: Nurse Practitioner; PCP Internal Medicine Medical Oncology; Visit Provider Orthopaedic Surgery
PROC: (CPT 24685; principal; 2024-01-27 12:20)
DX: M24.622 Ankylosis, left elbow (principal); S52.002A Unspecified fracture of upper end of left ulna, initial encounter for closed fracture; X58.XXXA Exposure to other specified factors, initial encounter; Y93.9 Activity, unspecified; Y92.9 Unspecified place or not applicable; Y99.9 Unspecified external cause status; Z96.9 Presence of functional implant, unspecified
CPT/HCPCS: 24685; 20680; 81025; C1713; J0171; J0665; J0690; J1100; J1170; J2250; J2405; J2704; J2795; J3010; J7120

== ENCOUNTER → 2024-01-27 09:13 | Outpatient (BNV) | payer OTHER, SELFPAY | PROVIDERS: PCP Internal Medicine Medical Oncology; Visit Provider Orthopaedic Surgery | DX: T84.84XA Pain due to internal orthopedic prosthetic devices, implants and grafts, initial encounter (principal) | CPT/HCPCS: 24685; 99024 ==

== ENCOUNTER 2024-02-04 12:00 | Outpatient (REF) | payer OTHER, SELFPAY ==
--- NOTE | ~2024-02-04 | XR_ITS ---
EXAMINATION: XR ELBOW, LEFT CLINICAL INFORMATION: Pain in unspecified elbow. COMPARISON: Fluoroscopic images of 01/27/2024, radiographs of 11/19/2023 and 09/17/2023. TECHNIQUE: AP, lateral, and oblique views of the left elbow. FINDINGS: Postsurgical changes with leora, joint effusion and soft tissue swelling. Evidence of prior surgery with deformity and lucencies in the distal humerus notable status post removal of previously identified surgical hardware in the distal humerus and proximal ulna. Screws demonstrated in the distal humerus and proximal ulna. Fixation plate and screws again seen in the proximal ulna. There is evidence of healing with similar alignment of previously noted comminuted fractures of the humerus, ulna with persistent lucencies in the distal humerus characteristic of fracture. There is separation of the proximal aspect of the ulna from the remainder of the ulna with a significant gap which is spanned by a screw. Fixation plate and screws present in the shaft of the ulna. XR/XR elbow LT min 3V IMPRESSION: Postsurgical changes as detailed above.
== END 2024-02-04 12:01 | disposition home or self-care (01) ==
LOC: HO.HOSX 12:00
PROVIDERS: Visit Provider Physician Assistant
DX: M25.522 Pain in left elbow (principal)
CPT/HCPCS: 73080

== ENCOUNTER 2024-02-04 14:40 | Outpatient (AMB) | payer OTHER, SELFPAY ==
--- NOTE | 2024-02-04 14:52 | MHC.OFFVIS ---
Intake Visit Reasons: PO LT elbow KVNG/lysis of adhesions 01/27/24 NE Intake Note: Elda is a 43 year old female who presents today for a post op appointment s/p LT elbow KVNG/lysis of adhesions 01/27/24 NE. Patient reports she is doing well, a bit sore from having PT. Allergies No Known Allergies Allergy (Mild, Verified 12/24/23 13:52) NOT APPLICABLE HPI HPI PO LT elbow KVNG/lysis of adhesions 01/27/24 NE: Details: 43-year-old female who presents in the office today 8 days status post left humerus and left ulna removal of hardware, which was performed on 01/27/[address] Luque. While in the office today the patient reports she is a bit sore after physical therapy but overall doing well. [facility] Medical History Atypical hyperplasia of right breast Breast calcification, right Surgical History History of surgery on arm History of lumpectomy of right breast Hx of wisdom tooth extraction Family History Maternal Grandmother Lung cancer Social History Household Members: Family Housing: House Do you presently have visiting nurse or other home services: No Alcohol intake: never Patient Tobacco Use Status: Never used Tobacco service: No Female Reproductive History Menstrual Age of Menarche: 11 Review of Systems Const All systems reviewed & are unremarkable except as noted in HPI and below Physical Exam Const General: cooperative, healthy appearing and no acute distress Resp Effort & Inspection: normal respiratory effort and able to speak in complete sentences Cardio Rate: regular rate Peripheral pulses: Peripheral pulses 2+ throughout GI Palpation (GI): Soft to palpation Skin Lesions: no lesions Rashes: no rashes Extrem Other: Left elbow incision site is c/d/i. Darren intact. ROM 30-90 degrees. No signs of infection. NVI. Assessment & Plan Assessment & Plan (1) Stiffness of left elbow joint: Comment: Left humerus and left ulna removal of hardware 01/27/2024 NE Code(s): M25.622 - Stiffness of left elbow, not elsewhere classified Category: Surgical Plan Ms. Koch is a 43-year-old female who presents in the office today 8 days status post left humerus and left ulna removal of hardware, which was performed on 01/27/[address] Luque. While in the office today the patient reports she is a bit sore after physical therapy but overall doing well. Dr. Luque was available to see the patient with me while in the office today and a collaborative treatment plan was made. The staple will remain intact for an additional week. There is no surrounding erythema or drainage. No signs of infection at this time. She will continue to work with occupational therapy on ROM. I did discuss with Dr. Luque, regarding those restrictions, which will be active assisted ROM goal of 110 degrees. This will be based off of the patient?s feedback of pain, as well as, extension and flexion to tolerance. She will also obtain the [place] splint but was informed she will need to pay this out of pocket. Therefore, it was only recommended that she obtained the [place] splint that works on flexion. I did reach out to occupational therapy directly to discuss ROM restrictions. Follow-up will be in one week with anticipation of removal of darren, or sooner if needed. X-rays of the left elbow which were obtained while in the office today and were reviewed by me, Sammie Hidalgo PA-C, revealed successful removal of orthopedic hardware and placement of olecranon screw. Orders: Orders XR elbow LT min 3V Today M25.529 - Pain in unspecified elbow Patient Instructions: Scribed by Charlene Rodriguez biomedical equipment support specialist, for Sammie Hidalgo PA-C on 02/04/2024 at 3:27 pm, EST. Coding Level of Care Code Global (70301) Diagnoses Stiffness of left elbow joint M25.622
== END 2024-02-04 15:11 | disposition home or self-care (01) ==
PROVIDERS: PCP Internal Medicine Medical Oncology; Visit Provider Physician Assistant
DX: M25.622 Stiffness of left elbow, not elsewhere classified (principal)
CPT/HCPCS: 99024

== ENCOUNTER 2024-02-12 08:51 | Outpatient (AMB) | payer OTHER, SELFPAY ==
--- NOTE | 2024-02-12 08:58 | MHC.OFFVIS ---
Intake Visit Reasons: PO LT elbow KVNG/lysis of adhesions 01/27/24 NE Intake Note: Elda is a 43 year old right hand dominant female who presents today for a post op appointment s/p LT elbow KVNG/lysis of adhesions 01/27/24 NE. Patient reports she is feeling a bit sore. Allergies No Known Allergies Allergy (Mild, Verified 02/12/24 09:01) NOT APPLICABLE HPI HPI PO LT elbow KVNG/lysis of adhesions 01/27/24 NE: Details: 43-year-old right hand dominant female who presents in the office today 16 days status post left humerus and left ulna removal of hardware, which was performed on 01/27/[address] Luque. I last saw the patient in the office on 02/04/2024 when darren were left intact. She was encouraged to continue to work with occupational therapy with restrictions of active assisted ROM goal of 110 degrees, to be adjusted due to pain. It was recommended for her to obtain the Oneida splint that works on flexion. ? ? While in the office today, the patient reports she is feeling a bit sore. ? [facility] Medical History Atypical hyperplasia of right breast Breast calcification, right Surgical History History of surgery on arm History of lumpectomy of right breast Hx of wisdom tooth extraction Family History Maternal Grandmother Lung cancer Social History Household Members: Family Housing: House Do you presently have visiting nurse or other home services: No Alcohol intake: never Patient Tobacco Use Status: Never used Tobacco service: No Female Reproductive History Menstrual Age of Menarche: 11 Review of Systems Const All systems reviewed & are unremarkable except as noted in HPI and below Physical Exam Const General: cooperative, healthy appearing and no acute distress Resp Effort & Inspection: normal respiratory effort and able to speak in complete sentences Cardio Rate: regular rate Peripheral pulses: Peripheral pulses 2+ throughout GI Palpation (GI): Soft to palpation Skin Lesions: no lesions Rashes: no rashes Extrem Other: Left elbow incision site is c/d/i. Darren intact. ROM 30-90 degrees. No signs of infection. NVI. Assessment & Plan Assessment & Plan (1) Stiffness of left elbow joint: Comment: Left humerus and left ulna removal of hardware 01/27/2024 NE Code(s): M25.622 - Stiffness of left elbow, not elsewhere classified Category: Surgical Plan Ms. Koch is a 43-year-old right hand dominant female who presents in the office today 16 days status post left humerus and left ulna removal of hardware, which was performed on 01/27/[address] Luque. I last saw the patient in the office on 02/04/2024 when darren were left intact. She was encouraged to continue to work with occupational therapy with restrictions of active assisted ROM goal of 110 degrees, to be adjusted due to pain. It was recommended for her to obtain the Oneida splint that works on flexion. ? ? While in the office today, the patient reports she is feeling a bit sore.? ? Marlin were removed and steri-stripes were applied. The patient will continue to work with occupational therapy. Follow-up will be in four weeks for a ROM check with Erin Moreno PA-C, or sooner if needed.? Patient Instructions: Scribed by Charlene Rodriguez ophthalmic medical technician, for Sammie Hidalgo PA-C on 02/12/2024 at 8:58 am, EST.? Coding Level of Care Code Global (02454) Diagnoses Stiffness of left elbow joint M25.622
== END 2024-02-12 09:28 | disposition home or self-care (01) ==
PROVIDERS: PCP Internal Medicine Medical Oncology; Visit Provider Physician Assistant
DX: M25.622 Stiffness of left elbow, not elsewhere classified (principal)
CPT/HCPCS: 99024

== ENCOUNTER → 2024-02-12 08:51 | Outpatient (BNVA) | payer OTHER, SELFPAY | PROVIDERS: PCP Internal Medicine Medical Oncology; Visit Provider Physician Assistant ==

== ENCOUNTER 2024-03-11 09:03 | Outpatient (AMB) | payer OTHER, SELFPAY ==
--- NOTE | 2024-03-11 09:04 | MHC.OFFVIS ---
Intake Visit Reasons: PO LT elbow KVNG/lysis of adhesions 01/27/24 NE Intake Note: Elda is a 43 year old right hand dominant female who presents today for a post op appointment s/p LT elbow KVNG/lysis of adhesions 01/27/24 NE. Patient reports she is doing well, however she mentions that she is still having tingling in her left ring and pinky finger. She states that the tingling moves down to the volar aspect of her hand. Allergies No Known Allergies Allergy (Mild, Verified 03/11/24 09:12) NOT APPLICABLE HPI HPI PO LT elbow KVNG/lysis of adhesions 01/27/24 NE: Details: 43-year-old right hand dominant female who presents in the office today for a ROM check; 6 weeks status post left humerus and left ulna removal of hardware, which was performed on 01/27/[address] Luque. I last saw the patient in the office on 02/12/24 when she was to continue to work with occupational therapy.? ? While in the office today, the patient reports she is doing well. However, she claims to have some tingling in the left ring and little fingers. She reports the tingling radiates down the volar aspect of the left hand. ? ? Patient has a significant medical history of fibromyalgia. ? [facility] Medical History Atypical hyperplasia of right breast Breast calcification, right Surgical History History of surgery on arm History of lumpectomy of right breast Hx of wisdom tooth extraction Family History Maternal Grandmother Lung cancer Social History Household Members: Family Housing: House Do you presently have visiting nurse or other home services: No Alcohol intake: never Patient Tobacco Use Status: Never used Tobacco service: No Female Reproductive History Menstrual Age of Menarche: 11 Review of Systems Const All systems reviewed & are unremarkable except as noted in HPI and below Physical Exam Const General: cooperative, healthy appearing and no acute distress Resp Effort & Inspection: normal respiratory effort and able to speak in complete sentences Cardio Rate: regular rate Peripheral pulses: Peripheral pulses 2+ throughout GI Palpation (GI): Soft to palpation Skin Lesions: no lesions Rashes: no rashes Extrem Other: Left elbow incision site is c/d/i. Darren intact. ROM 30-90 degrees. No signs of infection. NVI. Assessment & Plan Assessment & Plan (1) Stiffness of left elbow joint: Comment: Left humerus and left ulna removal of hardware 01/27/2024 NE Code(s): M25.622 - Stiffness of left elbow, not elsewhere classified Category: Surgical Plan Ms. Koch is a 43-year-old right hand dominant female who presents in the office today for a ROM check; 6 weeks status post left humerus and left ulna removal of hardware, which was performed on 01/27/[address] Luque. I last saw the patient in the office on 02/12/24 when she was to continue to work with occupational therapy.? ? While in the office today, the patient reports she is doing well. However, she claims to have some tingling in the left ring and little fingers. She reports the tingling radiates down the volar aspect of the left hand. ? ? Patient has a significant medical history of fibromyalgia.? ? The patient will continue to work with physical therapy. She continues to endorse tingling but denies numbness in the left ring and little fingers that has been present since surgery. 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 Therefore, an EMG study of the left upper extremity to evaluated the nerves was ordered in the office today. Follow-up will be in six weeks, or sooner if needed. ? Orders: Orders NE electromyogram (EMG) Today M25.622 - Stiffness of left elbow, not elsewhere classified, S42.402A - Unspecified fracture of lower end of left humerus, initial encounter for closed fracture, S53.005A - Unspecified dislocation of left radial head, initial encounter Patient Instructions: Scribed by Charlene Rodriguez faculty i on call medical assistant, for Sammie Hidalgo PA-C on 03/11/2024 at 9:22 am, EST.? Coding Level of Care Code Global (20482) Diagnoses Stiffness of left elbow joint M25.622
== END 2024-03-11 09:27 | disposition home or self-care (01) ==
PROVIDERS: PCP Internal Medicine Medical Oncology; Visit Provider Physician Assistant
DX: M25.622 Stiffness of left elbow, not elsewhere classified (principal)
CPT/HCPCS: 99024

== ENCOUNTER → 2024-03-11 09:03 | Outpatient (BNVA) | payer OTHER, SELFPAY | PROVIDERS: PCP Internal Medicine Medical Oncology; Visit Provider Physician Assistant ==

== ENCOUNTER 2024-04-07 14:30 | Outpatient (RCR) | payer OTHER, SELFPAY ==
--- NOTE | 2024-02-01 14:12 | MHC.OT.EP ---
[address] [phone] Occupational Therapy Plan of Care Patient Name: Elda Koch Date of Evaluation: 02/01/24 Diagnosis: Left elbow KVNG w/ lysis of adhesions and placement of olecronon screw Pain Location: 01/24 left posterior elbow w/ movement Pain free at rest Pain Score: 6 Pain Scale Used: Numeric (0 - 10) Aggravating Factors: General movement Alleviating Factors: Pain meds 3x/day, ice occasionally Assessment: 43 yo female slipped and fell in the snow 07/08/23, resulting in left ulnar fx and radial head dislocation and left humerus fx. She is post-op repair w/ ORIF distal humerus intra-articular fracture with olecranon osteotomy, ORIF ulnar shaft fracture 07/14/23. She was seen through course of OT with persistent left elbow stiffness and was referred back to MD. She has now s/p removal of hardware, open lysis of adhesions abd placement of olecronon screw 01/28/24. She is now referred back to OT for continued management, no passive range at this time. On assessment today, she has moderate edema throughout left arm w/ some bruising noted. Hand range is grossly WFL, tight MCPs and still reporting pins and needles in ulnar side of hand. Dressing removed and changed with new xeroform, gauze and catalina wrap, post-op incision clean w/ no signs of infection. Elbow AAROM currently 35/95, spending prolonged time w/ gravity assisted flexion range. We will continue therapy services for management of edema and A/AROM and progress to passive range and functional strengthening when cleared by MD. Frequency and Duration: The patient will be seen 2x/wk for 6 weeks Short Term Goals: Ind w/ HEP Elbow flex 100 Elbow ext 30 Ind w/ self massage for edema and scar tissue (when leora removed) Pt to utilize left hand w/ light bimanual activities Parimutuel Clerk Goals: Pt to report ease w/ bimanual hair washing Elbow flex to 120 degrees Elbow ext to 20 degrees Left gross grasp 50lb Ind w/ self stretching techniques Treatment Plan: Therapeutic Exercise Therapeutic Activity Home Exercise Program Patient Education Desensitization/Sensory Re-ed ADL Training NMES MHP Cold Packs Joint Mobilization Soft Tissue Mobilization Kinesiotaping Electronically Signed By: Tonie Zapka, OTR/L CHT Please Sign and return to therapist. Thank you once again for your referral.
--- NOTE | 2024-03-10 08:36 | MHC.OT.OP ---
[address] [phone] F: [phone] Occupational Therapy Progress Note Patient Name: Elda Koch Diagnosis: Left elbow KVNG w/ lysis of adhesions and placement of olecronon screw Date of Surgery: 01/28/24 Date of Evaluation: 02/01/24 Treatments to Date: 12 Subjective: It's just been sore Pain Score: 4 Pain Location: left forearm, soft tissue Objective Measures: Elbow ROM: pre tx 35/90 Post-tx 25/ *We have obtained ext 20 and flex 115 - however not consistently Gross grasp 20lb Pins and needles to left ulnar nerve distribution Assessment: 6 weeks post-op Moderate pain, still very guarded. Moderate edema, good increase in range with treatment, decreased carry over between sessions, still very limited. Short Term Goals: Ind w/ HEP (met) Elbow flex 100 Elbow ext 30 (met) Ind w/ self massage for edema and scar tissue (when leora removed) (met) Pt to utilize left hand w/ light bimanual activities (met) Computer Systems Designer Goals: Pt to report ease w/ bimanual hair washing Elbow flex to 120 degrees Elbow ext to 20 degrees Left gross grasp 50lb Ind w/ self stretching techniques Frequency and Duration: The patient will be seen 2x/wk for 4 weeks Treatment Plan: Therapeutic Exercise Therapeutic Activity Home Exercise Program Splinting Neuro Re-ed Patient Education Desensitization/Sensory Re-ed Edema Control ADL Training MHP Cold Packs Joint Mobilization Soft Tissue Mobilization Kinesiotaping Electronically Signed By: Tonie Guzman OTR/Rhoda CHT Reviewed/agree with student documentation: Therapist:
--- NOTE | 2024-04-20 14:01 | MHC.OT.DC ---
[address] [phone] F: [phone] Occupational Therapy Discharge Note Patient Name: Elda Koch Provider: Sammie Hidalgo PA-C Diagnosis: Left elbow KVNG w/ lysis of adhesions and placement of olecronon screw Date of Surgery: 01/28/24 Date of Evaluation: 02/01/24 Treatments to Date: 18 Discharge Summary: Elda has been seen for second course of OT following removal of hardware w/ lysis of adhesions and placement of olecronon screw. We continue to have difficulty progressing range, consistently achieving 25/105 with therapy and still with low gross grasp. She has returned to work and at this time has been unable to attend further therapy sessions. She is Ind w/ HEP and has custom flex and ext orthosis from OT, as well as Dynasplint for flexion. Electronically Signed By: Tonie Guzman, OTR/L CHT Please Sign and return to therapist, thank you for your referral.
== END 2024-04-20 14:02 | disposition home or self-care (01) ==
LOC: HO.OT 14:30
PROVIDERS: PCP Internal Medicine Medical Oncology; Visit Provider Physician Assistant
DX: M25.622 Stiffness of left elbow, not elsewhere classified (principal); S53.005D Unspecified dislocation of left radial head, subsequent encounter; S64.22 Injury of radial nerve at wrist and hand level of left arm
CPT/HCPCS: 97110; 97140; 97165; 97760

== ENCOUNTER 2024-04-15 08:16 | Outpatient (REF) | payer OTHER, SELFPAY ==
--- NOTE | 2024-04-15 08:21 | EMG_ITS ---
Chief complaint: Numbness/pins/needles on left 4th and 5th digits after last surgery 01/27/2024. Elbow fracture 06/2023. 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 Reason for referral: Evaluate for ulnar neuropathy Referred by: Sammie VEGA Procedure done: Left upper extremity NCS/EMG Precautions and/or limitations: None The limb temperature was monitored continuously and remained between 32-36 degrees C during the performance of the NCS. Ulnar motor NCS was performed with moderate elbow flexion between 70-90 degrees, with across-elbow distance of 10 cm. Nerve Conduction Studies Anti Sensory Summary Table ?Stim Site NR Onset (ms) Norm Onset (ms) Peak (ms) Norm Peak (ms) O-P Amp (?V) Norm O-P Amp Site1 Site2 Delta-0 (ms) Dist (cm) Alexander (m/s) Norm Alexander (m/s) Left Median Anti Sensory (2nd Digit) Wrist ? 2.2 2.9 <3.6 61.1 >10 Wrist 2nd Digit 2.2 14.0 64 Left Radial Anti Sensory (Thumb) Forearm ? 1.6 2.3 <3.1 29.2 Forearm Thumb 1.6 0.0 Left Ulnar Anti Sensory (5th Digit) Wrist ? 2.4 3.0 <3.7 9.6 >15.0 Wrist 5th Digit 2.4 14.0 58 Motor Summary Table ?Stim Site NR Onset (ms) Norm Onset (ms) O-P Amp (mV) Norm O-P Amp iAmp (mV) Amp (1st) (%) Site1 Site2 Delta-0 (ms) Dist (cm) Alexander (m/s) Norm Alexander (m/s) Left Median Motor (Abd Poll Brev) Wrist ? 3.5 <3.9 6.6 >4.5 7.6 100.0 Elbow Wrist 3.8 20.5 54 >45 Elbow ? 7.3 5.9 6.9 89.4 Left Ulnar Motor (Abd Dig Minimi) Wrist ? 2.7 <3.0 6.5 >5 7.3 100.0 B Elbow Wrist 3.4 18.5 54 >45 B Elbow ? 6.1 6.0 6.9 92.3 A Elbow B Elbow 2.2 10.0 45 >45 A Elbow ? 8.3 2.4 2.8 36.9 EMG ?Side Muscle Nerve Root Ins Act Fibs Psw Amp Dur Poly Recrt Int Pat Comment Left 1stDorInt Ulnar C8-T1 Nml Nml Nml Nml Nml 0 Nml Complete Left Biceps Musculocut C5-6 Nml Nml Nml Nml Nml 0 Nml Complete Left Triceps Radial C6-7-8 Nml Nml Nml Nml Nml 0 Nml Complete Left Deltoid Axillary C5-6 Nml Nml Nml Nml Nml 0 Nml Complete Left FlexCarpiUln Ulnar C8,T1 Nml Nml Nml Nml Nml 0 Nml Complete FINDINGS: Left ulnar motor nerve showed normal distal latency, drop in amplitude above the elbow and slowed conduction velocity across the elbow. Left ulnar sensory nerve showed normal peak latency but small amplitude. All other nerves tested were within normal. Concentric needle EMG was performed in selected muscles of the left upper extremity. Study did not reveal signs of electric abnormalities as shown in the table above. IMPRESSION: 1. This is an abnormal study. 2. There is electrodiagnostic evidence for left ulnar neuropathy at the elbow, conduction block/demyelinating features. 3. There is no electrodiagnostic evidence for median neuropathy, brachial plexopathy, or cervical radiculopathy. Thank you for your kind referral. Ainsley Guevara MD, DOROTHY Board Certified, [place] Board [employer] and Rehabilitation (ABPMR) Board Certified, [place] Board of Electrodiagnostic Medicine (ABEM) [address] [id number] [facility]
== END 2024-04-15 08:17 | disposition home or self-care (01) ==
LOC: HO.NEURO 08:16
PROVIDERS: PCP Internal Medicine Medical Oncology; Visit Provider Physician Assistant
DX: M25.622 Stiffness of left elbow, not elsewhere classified (principal); S42.402A Unspecified fracture of lower end of left humerus, initial encounter for closed fracture; S53.005A Unspecified dislocation of left radial head, initial encounter; R20.2 Paresthesia of skin
CPT/HCPCS: 95886; 95909

== ENCOUNTER → 2024-04-15 08:21 | Outpatient (BNV) | payer OTHER, SELFPAY | PROVIDERS: PCP Internal Medicine Medical Oncology; Visit Provider Physical Medicine & Rehabilitation | DX: G56.22 Lesion of ulnar nerve, left upper limb (principal) | CPT/HCPCS: 95886; 95909 ==

== ENCOUNTER 2024-04-22 09:27 | Outpatient (AMB) | payer OTHER, SELFPAY ==
--- NOTE | 2024-04-22 09:32 | A.OFFVIS_ITS ---
Vital Signs 04/22/24 09:33 Height 5 ft 3.5 in Weight 150 lb BMI 26.2 Intake Visit Reasons: LT elPO-bow KVNG/lysis of adhesions 01/27/24 NE Intake Note: Elda is a 43 year old right hand dominant female who presents today for a post op appointment s/p LT elbow KVNG/lysis of adhesions 01/27/24 NE. At her last visit with Sammie, an EMG was ordered to evaluate tingling that was present since surgery. Patient reports that she is doing well with no concerns. IMPRESSION: 1. This is an abnormal study. 2. There is electrodiagnostic evidence for left ulnar neuropathy at the elbow, conduction block/demyelinating features. 3. There is no electrodiagnostic evidence for median neuropathy, brachial plexopathy, or cervical radiculopathy. Allergies No Known Allergies Allergy (Mild, Verified 03/11/24 09:12) NOT APPLICABLE HPI HPI LT elPO-bow KVNG/lysis of adhesions 01/27/24 NE: Details: Elda is a 43 year old right hand dominant female who presents today for a post op appointment s/p LT elbow KVNG/lysis of adhesions 01/27/24 NE. At her last visi t with Sammie, an EMG was ordered to evaluate tingling that was present since surgery. Patient reports that she is doing well with no concerns. PENDING SALE TO [facility] Medical History Atypical hyperplasia of right breast Breast calcification, right Surgical History History of surgery on arm History of lumpectomy of right breast Hx of wisdom tooth extraction Family History Maternal Grandmother Lung cancer Social History Household Members: Family Housing: House Do you presently have visiting nurse or other home services: No Alcohol intake: never Patient Tobacco Use Status: Never used Tobacco service: No Female Reproductive History Menstrual Age of Menarche: 11 Physical Exam Vital Signs: BMI result Body Mass Index 26.2 Const General: cooperative, healthy appearing and no acute distress Resp Effort & Inspection: normal respiratory effort and able to speak in complete sentences Cardio Rate: regular rate Peripheral pulses: Peripheral pulses 2+ throughout GI Palpation (GI): Soft to palpation Skin Lesions: no lesions Rashes: no rashes Extrem Other: Left elbow incision site is c/d/i. ROM 30-90 degrees. No signs of infection. NVI. Moving fingers comfortably. 70/70 sup/pro Assessment & Plan Assessment & Plan (1) Stiffness of left elbow joint: Comment: Left humerus and left ulna removal of hardware 01/27/2024 NE Code(s): M25.622 - Stiffness of left elbow, not elsewhere classified Category: Surgical Plan: Elda is a 43-year-old woman with left elbow polytrauma with floating elbow status post ORIF subsequent removal of hardware with lysis of adhesions who, overall is doing well, but there is persistent stiffness of the left elbow.She is satisfied with the status of her elbow and has no pain. Her numbness is mild and not bothering her. She can see me at any time if the need arises but, at th is time, she is doing well. Coding Level of Care Code Est Pt Level 3 (40749) Diagnoses Stiffness of left elbow joint M25.622
[2024-04-22 09:33] VITALS: BMI 26.2
== END 2024-04-22 09:44 | disposition home or self-care (01) ==
PROVIDERS: PCP Internal Medicine Medical Oncology; Visit Provider Orthopaedic Surgery
DX: M25.622 Stiffness of left elbow, not elsewhere classified (principal)
CPT/HCPCS: 99024

== ENCOUNTER → 2024-04-22 09:27 | Outpatient (BNVA) | payer OTHER, SELFPAY | PROVIDERS: PCP Internal Medicine Medical Oncology; Visit Provider Orthopaedic Surgery ==

== ENCOUNTER 2024-05-18 07:34 | Outpatient (REF) | payer OTHER, SELFPAY ==
--- NOTE | ~2024-05-18 | MM_ITS ---
EXAMINATION: MM SCREENING DIGITAL BREAST TOMOSYNTHESIS, BILATERAL CLINICAL INFORMATION: Screening. Asymptomatic. COMPARISON: Mammography: Comparison is made with available priors TECHNIQUE: Digital breast mammography with tomosynthesis is performed in both the craniocaudal and mediolateral oblique views along with computer-aided detection (CAD). FINDINGS: The breasts are heterogeneously dense, which may obscure small masses (ACR BI-RADS breast composition Category c). There are no significant masses, abnormal calcifications, or other abnormalities. MM/MM tomosynthesis screening BI IMPRESSION: No mammographic evidence of malignancy. ASSESSMENT: BI-RADS BI-RADS 1 - Negative RECOMMENDATION: Routine annual mammography screening. 1 year F/U This examination should not preclude the clinical evaluation of a suspicious palpable abnormality. This patient's information was entered into a reminder system with a target due date for their next mammogram. Electronically signed by: Griselda Grande DO 05/27/2024 01:49 PM EDT
== END 2024-05-18 07:35 | disposition home or self-care (01) ==
LOC: HO.MAMMO 07:34
PROVIDERS: PCP Internal Medicine Medical Oncology; Visit Provider Internal Medicine Medical Oncology
DX: Z12.31 Encounter for screening mammogram for malignant neoplasm of breast (principal)
CPT/HCPCS: 77063; 77067

== ENCOUNTER → 2024-05-18 07:45 | Outpatient (BNV) | payer OTHER, SELFPAY | PROVIDERS: PCP Internal Medicine Medical Oncology; Visit Provider Internal Medicine | DX: Z12.31 Encounter for screening mammogram for malignant neoplasm of breast (principal) | CPT/HCPCS: 77063; 77067 ==

== ENCOUNTER 2024-10-19 12:04 | Outpatient (REF) | payer OTHER, SELFPAY ==
[2024-10-19 13:08] LABS: Hematocrit 31.2 % (37.0-47.0); Hemoglobin 9.4 g/dl (12.0-16.0); Mean Corpuscular HGB Conc 30.1 g/dl (31.0-35.0); Mean Corpuscular Hemoglobin 22.4 pg (27.0-33.0); Mean Corpuscular Volume 74.3 fL (80.0-98.0); Mean Platelet Volume 8.7 fL (9.4-12.3); Platelet Count 726 X10*3/uL (160-400); Red Cell Distribution Width 17.6 % (11.0-16.0); White Blood Count 11.2 X10*3/uL (4.8-10.8)
[2024-10-19 14:20] LABS: HCG Quantitative < 2 mIU/mL; TSH reflex Free T4 0.91 uIU/mL (0.32-4.0)
[2024-10-20 13:47] LABS: CT PCR NOT DETECTED (Not Detect.); NG PCR NOT DETECTED (Not Detect.)
== END 2024-10-19 12:05 | disposition home or self-care (01) ==
LOC: HO.LAB 12:04
PROVIDERS: PCP Internal Medicine Medical Oncology; Visit Provider Obstetrics & Gynecology
DX: Z01.419 Encounter for gynecological examination (general) (routine) without abnormal findings (principal); N93.9 Abnormal uterine and vaginal bleeding, unspecified
CPT/HCPCS: 84443; 84702; 85027; 87491; 87591

== ENCOUNTER 2024-10-19 12:04 | Outpatient (AMB) | payer OTHER, SELFPAY ==
--- NOTE | 2024-10-19 12:11 | A.OFFVIS_ITS ---
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 Dislocation of left radial head Left radial head fracture Fracture of distal end of left humerus Fracture of left ulna, shaft Fracture of left distal radius Atypical hyperplasia of right breast Breast calcification, right Surgical History History of surgery on arm History of lumpectomy of right breast Hx of wisdom tooth extraction Family History Maternal Grandmother Lung cancer Social History Household Members: Family Housing: House Do you presently have visiting nurse or other home services: No Alcohol intake: never Patient Tobacco Use Status: Never used Tobacco service: No Female Reproductive History Menstrual Age of Menarche: 11 Date of last pap smear: 08/06/23 Date of Mammogram: 05/18/24 Review of Systems Const All systems reviewed & are unremarkable except as noted in HPI and below Card Reports as per HPI Resp Reports as per HPI GI Reports as per HPI and Reports no additional complaints Reports as per HPI Physical Exam Const General: cooperative, healthy appearing and comfortable Chest Chest palpation & inspection: normal inspection of the chest and normal palpation of entire chest wall Breast/axilla inspection: normal inspection of the breasts and normal inspection of the axillae Breast/axilla palpation: normal palpation of the breasts, normal palpation of the axillae and no axillary lymphadenopathy Resp Effort & Inspection: normal respiratory effort Auscultation: clear to auscultation bilaterally Percussion: percussion normal Cardio Palpation: normal PMI Rate: regular rate Rhythm: regular rhythm Heart sounds: no murmurs and no rubs Peripheral pulses: Peripheral pulses 2+ throughout GI Inspection: Yes normal to inspection Palpation (GI): Soft to palpation, nontender, no guarding, not rigid and No hepatosplenomegaly present Percussion: Yes normal to percussion Auscultation: normal bowel sounds Rectal Exam - Female: deferred General: Yes bladder normal to palpation External Female Exam: No lesion Speculum Exam - Vagina: normal appearance of the vagina, normal palpation, normal vaginal discharge and not erythematous Speculum Exam - Cervix: normal appearance of the cervix and normal palpation Bimanual exam- vagina & uterus: normal bimanual exam, normal palpation, uterine size normal, bladder normal to palpation, consistency normal and normal palpation Bimanual Exam- Adnexa, other: normal adnexae, no masses and no tenderness Assessment & Plan Assessment & Plan (1) Well woman exam: Code(s): Z01.419 - Encounter for gynecological examination (general) (routine) without abnormal findings Category: Medical Plan: Cotesting not indicated this year. Instructions given to patient to schedule next screening Mammogram on 06/10. Counseled the patient about the recommended dietary allowance of 1000 mg of Calcium & 600 IU of vitamin D. Will refer to GI for screening colonoscopy The patient was instructed to perform monthly self-breast exams and to schedule an annual exam in a year; All questions answered and the patient verbalized understanding. Instructed the patient to schedule annual exam in a year (2) Abnormal uterine bleeding (AUB): Comment: History of atypical ductal hyperplasia Code(s): N93.9 - Abnormal uterine and vaginal bleeding, unspecified Category: Medical Plan: GC and chlamydia taken CBC, TSH, HCG, and pelvic ultrasound ordered. Discussed with the patient the different causes of abnormal bleeding including thyroid disorders, uterine and ovarian pathology, endometrial hyperplasia, carcinoma and other potential causes. Discussed with the patient the work up including CBC (to r/o anemia), TSH, pelvic Ultrasound, endometrial biopsy to r/o endometrial pathology. All questions answered and the patient verbalized understanding. Instructed the patient to schedule an appointment for an endometrial biopsy in 2 weeks. Orders: Orders TSH reflex Free T4 Today N93.9 - Abnormal uterine and vaginal bleeding, unspecified HCG Quantitative Today N93.9 - Abnormal uterine and vaginal bleeding, unspecified US pelvic and transvaginal Today N93.9 - Abnormal uterine and vaginal bleeding, unspecified Complete Blood Count no Diff Today N93.9 - Abnormal uterine and vaginal bleeding, unspecified Referrals Gastroenterology Referral Z12.11 - Encounter for screening for malignant neoplasm of colon Coding Level of Care Code Est Pt Level 3 (53817) Est Pt Prev Care 40-64y(73682) Diagnoses Well woman exam Z01.419 Abnormal uterine bleeding (AUB) N93.9
[2024-10-19 12:18] VITALS: BP 110/80; BMI 28.9
--- OUTSIDE RECORDS SUMMARY | 2024-10-19 14:29 | XMS_ITS ---
Author Organization Gaurav Foreman III, MD Address [address] [place] [address] [place] [address] Care Team Providers Care Aircraft Avionics Technician Name Role Phone Gaurav Foreman Primary Care [...] Date Provider Diagnosis Gaurav Foreman III, MD [address] [place] [address] [place] [address] 04/19/2024 Gaurav Foreman Plan Of Treatment No Information Progress Notes * Elda CRABTREEDOB:1980 ([age] yo F)Acc No.[id number]:04/19/2024 Progress Notes Patient:?Elda CRABTREE Provider:?Gaurav Foreman MD :1980???Age:43 Y???Sex:Female D ate:04/19/2024 Address:[id number] Subjective: * Chief Complaints: * ???1. Annual exam. * HPI: ???COVID-19 Screening:?Questions?Have you had any new onset fever, chills, cough, congestion, sore throat, shortness of breath, muscle aches??No ?Have you been exposed to the virus within the last 10 days??No ?Have you travelled internationally in the last 10 days??No ?Have you been exposed to COVID-19 in the past??No * ROS:?General/Constitutional:?pain?only normal aches and pains.?Chills?denies.?Fatigue?admits.?Fever?denies.?ENT:?Decreased hearing?denies.?Respiratory:?Cough?denies.?Cardiovascular:?Chest pain with exertion?denies.?Dyspnea on exertion?denies.?Shortness of breath?denies.?Gastrointestinal:?Constipation?denies.?Decreased appetite?denies.?Diarrhea?denies.?Heartburn?denies.?Nausea?denies.?Rectal bleeding?denies.?Vomiting?denies.?Hematology:?bruising?denies.?petechiae?denies.?Swollen glands?none have been noted.?Genitourinary:?Frequent urination?denies.?Musculoskeletal:?Muscle aches?denies.?Painful joints?denies.?Sciatica?denies.?Weakness?denies.?Skin:?Itching?denies.?Rash?denies.?Skin lesion(s)?denies.?Neurologic:?Difficulty speaking?denies.?Dizziness?denies.?Headache?denies.?Low back pain?denies.?Psychiatric:?Depressed mood?denies.? * Medical History:?Anxiety, Ab1 miscarriage, Environmental allergies, Overweight, Lumbar scoliosis with occasional low back pain. * Surgical History:?[id number] , 3 vaginal deliveries , Biopsy right breast, benign disease 12/2020, Left arm Surgery- [facility] 07/08/2023. * Family History:?Father: adrian malone 68 yrs, Elevated cholesterol, diagnosed with CVD.?Mother: alive 65 yrs, Elevated cholesterol.?Paternal Grand Mother: alive, diagnosed with DM.?1 brother(s) - healthy. 2 son(s) , 1 daughter(s) - healthy. .? Her brother and children are healthy and well. She is not aware of any inherited cancer family syndrome. She is not aware of any family history of substance abuse disorder, addiction, or mental illness. * Social History:?Tobacco Use:?Tobacco Use/Smoking?Patient is a?nonsmoker ?Additional Findings: Tobacco Non-User?Aggressive non-smoker ???She was born and [place], [place]. She has been to [place] for 19 years. She has had 4 pregnancies, 1 miscarriage and 3 vaginal deliveries. She has 2 sons and a daughter all of whom are healthy and well. 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 * Medications:?None * Allergies:?Seasonale. Objective: * Vitals:? * Examination: ???General Examination: ?GENERAL APPEARANCE:?pleasant, well nourished, well developed, in no acute distress, calm and relaxed.?HEAD:?atraumatic, normocephalic.?EYES:?eomi, perrla, anicteric, conjugate.?EARS:?normal.?NOSE:?septum intact.?ORAL CAVITY:?normal, unremarkable.?NECK/THYROID:?no jugular venous distention, no carotid bruit, thyroid normal.?LYMPH NODES:?no enlarged lymph nodes,spleen normal.?SKIN:?no suspicious lesions, anicteric.?HEART:?no clicks, gallops, murmurs, or rubs, regular rhythm, S1, S2 normal, no s3, or vascular bruits.?LUNGS:?clear to auscultation .?BREASTS:??no masses palpable bilaterally.?ABDOMEN:?bowel sounds normal, no ascites, no organomegaly, no mass.?RECTAL EXAM:?not examined.?MUSCULOSKELETAL:?extremities unremarkable, no clubbing, cyanosis or edema.?PERIPHERAL PULSES:?normal.?NEUROLOGIC:?alert and oriented, cranial nerves 2-12 grossly intact, deep tendon reflexes 2+ symmetrical, motor strength normal upper and lower extremities, sensory exam intact.?PSYCH:?alert, oriented.? Assessment: Plan: * Treatment: * Images: * The named appointment provid er may or may not be the originator of this progress note, and it is not deemed complete until electronically signed by the appointment provider. Sign off status: Pending * Provider:?Gaurav Foreman MD Date:?10/2023 Generated for Edgar bustamante/Chava/Milan on:?10/19/2024 02:29 PM EST History and Physical Notes * HPI (History of Present Illness) Category Sub-Category Detail Notes COVID-19 Screening Questions Have you had any new onset fever, chills, cough, congestion, sore throat, shortness of breath, muscle aches?: No Have you been exposed to the virus withi n the last 10 days?: No Have you travelled internationally in last 10 days?: No Have you been [...]
--- OUTSIDE RECORDS SUMMARY | 2024-10-19 14:29 | XMS_ITS ---
Author Organization Gaurav Foreman III, MD Address [address] [place] [address] Care Team Providers Care Banking Specialist Name Role Phone Gaurav Foreman Primary Care Provider [phone] Medications Medication SIG (Take, Route, Fr equency, Duration) Notes Start Date End Date Status Bactrim DS 800-160 MG 1 tablet Orally tw ice a day for 7 days 07/12/2024 07/19/2024 Active Social History Sex Assigned At : Social History Observation Description Sex Assigned At Female Encounters Encounter Location Date Provider Diagnosis Gaurav Foreman III, MD [address] [place] [address] [place] [address] 07/12/2024 Gaurav Foreman Plan Of Treatment Medication Medication Name Sig Start Date Stop Date Notes Bactrim DS 800-160 MG 1 tablet Orally tw ice a day for 7 days 07/12/2024 07/19/2024 Progress Notes * Elda CRABTREEDOB:1980 ([age] yo F)Acc No.[id number]:07/12/2024 Patient:?Elda CRABTREE :1980???Age:43 Y???Sex:Female Address:[place], [address] * Refills? Start Bactrim DS Tablet, 800-160 MG, Orally, 14 Tablet, 1 tablet, twice a day, 7 days, Refills=0 * true * Date:? Generated for Printi dianna/Fanareshg/eTransmitting on:?10/19/2024 02:29 PM EST
--- OUTSIDE RECORDS SUMMARY | 2024-10-19 14:29 | XMS_ITS | Patient Health Record ---
Author Organization Gaurav Foreman III, MD Address [address] [place] [address] DR JANICE Lei [facility] [place] [address] Care Team Providers Care Manufacturing Systems Engineer Name Role Phone Gaurav Foreman Primary Care Provider Allergies Allergen (clinical drug ingredient) Drug/Non Drug Allergy documented on EMR Reaction Allergy Type Onset Date Status Seasonale Unknown Drug Allergy Active Results Component Value Reference Range Notes XR elbow LT 2V Reviewed date:12/20/2023 01:08:45 PM Interpretation: Performing Lab: Notes/Report: [facility] [address] [place] [address] Drive [address] [place] [address] XRay Report Signed Patient: Elda Koch MR#: [id number] : 1980 Acct:[id number] Age/Sex: 43 / F ADM Date: 11/19/23 Loc: [facility] Attending Dr: Jim Luque MD Ordering Physician: Jim Luque MD Date of Service: 11/19/23 Procedure(s): XR elbow LT 2V Accession Number(s): [id number] cc: Gaurav Foreman MD; Jim Luque MD EXAMINATION: XR ELBOW, LEFT CLINICAL INFORMATION: Elbow pain COMPARISON: 09/17/2023 elbow radiographs TECHNIQUE: AP, lateral, and oblique views of the left elbow. FINDINGS: Status post ORIF of the humerus and ulna in similar alignment fixating healing comminuted fractures of the humerus and ulna with persistent lucency all of the fracture margins in the distal humerus. No evidence of hardware fracture or complication. Soft tissues are unremarkable. XR/XR elbow LT 2V IMPRESSION: Status post ORIF of the humerus and ulna in similar alignment fixating healing comminuted fractures of the humerus and ulna with persistent lucency all of the fracture margins in the distal humerus. Dictated By: Lorraine Rodarte MD Signed By: <Electronically signed by Lorraine Rodarte MD in OV> 11/27/23 1524 DD/ TD/TT: Calender Roll Press Operator: [facility] [address] [place] [id number] XRay Report Signed Patient: Elda Koch MR#: [id number] : 1980 Acct:[id number] Age/Sex: 43 / F ADM Date: 11/19/23 Loc: [facility] Attending Dr: Jim Luque MD Ordering Physician: Jim Luque MD Date of Service: 11/19/23 Procedure(s): XR elb ow LT 2V Accession Number(s): [id number] cc: Gaurav Foreman MD; Jim Luque MD EXAMINATION: XR ELBOW, LEFT CLINICAL INFORMATION: Elbow pain COMPARISON: 09/17/2023 elbow radiographs TECHNIQUE: AP, lateral, and obl ique views of the left elbow. FINDINGS: Status post ORIF of the humerus and ulna in similar alignment fixating healing comminuted fractures of the humerus and ulna with persistent lucency all of the fracture margins in the distal humerus. No evidence of hardware fracture or complication. Soft tissues are unremarkable. X R/XR elbow LT 2V IMPRESSION: Status post ORIF of the humerus and ulna in similar alignment fixating healing comminuted fractures of the humerus and ulna with persistent lucency all of the fracture margins in the distal humerus. Dictated By: Lorraine Rodarte MD Signed By: <Electronically signed by Lorraine Rodarte MD in OV> 11/27/23 1524 DD/ 0846 TD/TT: Calender Roll Press Operator: Ur Preg Test Reviewed date:12/20/2023 01:08:45 PM Interpretation: Performing Lab:[facility], [address] [place] [phone] Notes/Report: Urine NEGATIVE NEGATIVE This test was developed to detect early . False negative results may occur after the 5th - 7th week of when using this test method. If clinically indicated, consider a serum hCG. Ur Preg Test Reviewed date:01/30/2024 05:19:05 AM Interpretation: Performing Lab:[facility], [address] [place] [phone] Notes/Report: Urine NEGATIVE NEGATIVE This test was developed to detect early . False negative results may occur after the 5th - 7th week of when using this test method. If clinically indicated, consider a serum hCG. FL guidance in OR Reviewed date:04/03/2024 08:52:58 AM Interpretation: Performing Lab: Notes/Report: [address] [address] Fluoroscopy Report Signed Patient: Elda Koch MR#: [id number] : 1980 Acct:[id number] Age/Sex: 43 / F ADM Date: 01/27/24 Loc: [facility] Attending Dr: Jim Luque MD Ordering Physician: Jim Luque MD Date of Service: 01/27/24 Procedure(s): FL guidance in OR Accession Number(s): [id number] cc: Gaurav Foreman MD; Jim Luque MD EXAMINATION: XR FLUOROSCOPY WITH IMAGES CLINICAL INFORMATION: Hardware removal left elbow. COMPARISON: Left elbow radiographs 11/19/2023. TECHNIQUE: Fluoroscopy Supervised By: Dr. Jim Luque. Fluoroscopy Time: 0.1 minute. Cumulative Dose: 0.460 mGy. DAP: 0.76185 Gycm2. Images: 2. FINDINGS: Intraoperative fluoroscopy and spot films were performed during a procedure in the OR. 2 images demonstrate screws through the distal humerus as well as a single plate and screw device overlying the ulna with another spur extending from the olecranon to the coronoid proximally. At the time of the prior radiographs, plate and screw devices were seen overlying the distal humerus as well which are no longer present. In addition, only one plate and screw device is seen overlying the ulna whereas previously there had been 2. Please correlate with Dr. Jim Luque's report for complete details. FL/FL guidance in OR IMPRESSION: Intraoperative fluoroscopy and spot films were obtained. Please see Dr. Jim Luque's report for complete details. Dictated By: Zackery Weir MD Signed By: <Electronically signed by Zackery Weir MD in OV> 03/05/242141 DD/ 1319 TD/TT: Calender Roll Press Operator: ROWENA [address] [address] Fluoroscopy Report Signed Patient: Elda Koch MR#: [id number] : 1980 Acct:[id number] Age/Sex: 43 / F ADM Date: 01/27/24 Loc: .[facility] Attending Dr: Jim Luque MD Ordering Physician: Jim Luque MD Date of Service: 01/27/24 Procedure(s): FL guidance in OR Accession Number(s): [id number] cc: Gaurav Foreman MD; Jim Luque MD EXAMINATION: XR FLUOROSCOPY WITH IMAGES CLINICAL INFORMATION: Hardware removal lef t elbow. COMPARISON: Left elbow radiograp hs 11/19/2023. TECHNIQUE: Fluoroscopy Supervis ed By: Dr. Jim Luque. Fluoroscopy Time: 0. 1 minute. Cumulative Dose: 0.4 60 mGy. DAP: 0.08622 Gycm2. Images: 2. FINDINGS: Intraoperative fluoroscopy and spot films were performed during a procedure in the OR. 2 images demonstrate screws through the distal humerus as well as a single plate and screw device overlying the ulna with another spur extending from the olecranon to the coronoid proximally. At the t rolly of the prior radiographs, plate and screw devices were seen overlying the distal humerus as well which are no longer present. In addition, only one plate and screw device is seen overlying the ulna whereas previously there had been 2. Please correlate with Dr. Babak Luque's report for complete details. F L/FL guidance in OR IMPRESSION: Intraoperative fluoroscopy and spot films were obtained. Please see Dr. Jim Luque's repor t for complete details. Dictated By: Zackery Weir MD Signed By: <Electronically signed by Zackery Weir MD in OV> 03/05/242141 DD/ 1319 TD/TT: Sales Agent Pest Control Service ist: MM tomosynthesis screening B I Reviewed date:05/30/2024 07:33:31 AM Interpretation: Performing Lab: Notes/Report: [address] [place] [address] Mammography Report Signed Patient: Elda Koch MR#: [id number] : 1980 Acct:[id number] Age/Sex: 43 / F ADM Date: 05/18/24 Loc: MAMMO Attending Dr: Gaurav Foreman MD Ordering Physician: Gaurav Foreman MD Results: 1Negativ e Date of Service: 05/18/24 Follow Up: 1 Year From Orig ina Mammogram Procedure(s): MM tomosynthesis screening BI Accession Number(s): [id number] cc: Gaurav Foreman MD EXAMINATION: MM SCREENING DIGITAL BREAST TOMOSYNTHESIS, BILATERAL CLINICAL INFORMATION: Screening. Asymptomatic. COMPARISON: Mammography: Comparison is made with available priors TECHNIQUE: Digital breast mammography with tomosynthesis is performed in both the craniocaudal and mediolateral oblique views along with computer-aided detection (CAD). FINDINGS: The breasts are heterogeneously dense, which may obscure small masses (ACR BI-RADS breast composition Category c). There are no significant masses, abnormal calcifications, or other abnormalities. MM/MM tomosynthesis screening BI IMPRESSION: No mammographic evidence of malignancy. ASSESSMENT: BI-RADS BI-RADS 1 - Negative RECOMMENDATION: Routine annual mammography screening. 1 year F/U This examination should not preclude the clinical evaluation of a suspicious palpable abnormality. This patient's information was entered into a reminder system with a target due date for their next mammogram. Electronically signed by: Griselda Grande DO 05/27/2024 01:49 PM EDT Dictated By: Griselda Grande DO Signed By: <Electronically signed by Griselda Grande DO in OV> 05/27/24 1349 DD/ 0745 TD/TT: 05/18/24 0801 Calender Roll Press Operator: [address] [place] [address] Mammography Report Signed Patient: Elad Koch MR#: [id number] : 1980 Acct:[id number] Age/Sex: 43 / F ADM Date: 05/18/24 Loc: MAMMO Attending Dr: Gaurav Foreman MD Ordering Physician: Gaurav Foreman MD Results: 1Negativ e Date of Service: 05/18/24 Follow Up: 1 Year From Orig ina Mammogram Procedure(s): MM tomosynthesis screening BI Accession Number(s): [id number] cc: Gaurav Foreman MD EXAMINATION: MM SCREENING DIGITAL BREAST TOMOSYNTHESIS, BILATERAL CLINICAL INFORMATION: Screening. Asymptomatic. COMPARISON: Mammography: Compari son is made with available priors TECHNIQUE: Digital breast mammography with tomosynthesis is performed in both the craniocaudal and mediolateral oblique views along with computer-aided detection (CAD). FINDINGS: The breasts are heterogeneously dense, which may obscure small masses (ACR BI-RADS breast composition Category c). There are no signifi cant masses, abnormal calcifications, or other abnormalities. M M/MM tomosynthesis screening BI IMPRESSION: No mammographic evid ence of malignancy. ASSESSMENT: BI-RADS BI-RADS 1 - Negative RECOMMENDATION: Routine annual mammography screening. 1 year F/U This examination tatiana uld not preclude the clinical evaluation of a suspicious palpable abnormality. This patient's information was entered into a reminder system with a target due date for their next mammogram. Electronically neftaly d by: Griselda Grande DO 05/27/2024 01:49 PM EDT Dictated By: Griselda Grande DO Signed By: <Electronically signed by Griselda Grande DO in OV> 05/27/24 1349 DD/ 0745 TD/TT: 05/18/24 0801 Calender Roll Press Operator: Complete Blood Count no Diff (Not yet reviewed by provider) Interpretation: Performing Lab:[facility], [address] [place] [phone] Notes/Report: White Blood Count 11.2 4.8-10.8 X10*3/uL Red Blood Count 4.20 4.20-5.50 X10*6/uL Hemoglobin 9.4 12.0-16.0 g/dl Hematocrit 31.2 37.0-47.0 % Mean Corpuscular Volume 74.3 80.0-98.0 fL Mean Corpuscular Hemoglobin 22.4 27.0-33.0 pg Mean Corpuscular HGB Conc 30.1 31.0-35.0 g/dl Red Cell Distribution Width 17.6 11.0-16.0 % Platelet Count 726 160-400 X10*3/uL Mean Platelet Volume 8.7 9.4-12.3 fL NRBC Pct Auto 0.0 0.0-0.2 /100WBC NRBC Abs Auto 0.000 0.0-0.012 X10*3/uL TSH reflex Free T4 (Not yet reviewed by provider) Interpretation: Performing Lab:[facility], [address] [place] [phone] Notes/Report: TSH reflex Free T4 0.91 0.32-4.0 uIU/mL HCG Quantitative (Not yet re viewed by provider) Interpretation: Performing Lab:[facility], [address] [place] [phone] Notes/Report: HCG Quantitative < 2 Weeks post LMP Approximate hCG (Last Menstrual Period) Range (mIU/ml) 3 - 4 weeks 9 - 130 4 - 5 weeks 75 - 2,600 5 - 6 weeks 850 - 20,800 6 - 7 weeks 4000 - 100,200 7 - 12 weeks 11,500 - 289,000 12 - 16 weeks 18,300 - 137,000 16 - 29 weeks (2nd trimester) 1,400 - 53,000 29 - 41 weeks (3rd trimester) 940 - 60,000 The Davis B-hCG assay is used for the early detection of ; it cannot be used to diagnose any condition unrelated to . If a B-hCG level is not supported by the clinical evidence, results should be confirmed by an alternative method (qualitative urine hCG, for example). Reason For Referral No Information Social History Tobacco Use: Social History Observation Description Date Details (start date - stop date) Never Smoker NA - NA Sex Assigned At : Social History Observation Description Sex Assigned At Female Tobacco Use/Smoking Question Answer Notes Patient is a nonsmoker Additional Findings: Tobacco Non-User Aggressive non-smoker Alcohol Screen Question Answer Notes Did you have a drink containing alcohol in the p ast year? No Points 0 Interpretation Negative Problems Problem Type SNOMED Code ICD Code Onset Dates Problem Status W/U Status Risk Notes Problem Overweight (274564937) Overweight (E66.3) Active confirmed She is slightly overweight with a body mass index of 26. I recommended stabilizing her weight at this level and then reducing and throat diet restricted in calories. Problem 41373547 Anxiety (F41.9) Active confirmed This is diminished recently. She is decided not to call a therapist. Problem 479024156 Microcytic anemia (D50.9) Active confirmed Her anemia kern s become slightly worse. She will resume taking the iron pills twice a day. Repeat blood work will be done in the near future. His reticulocytes and a ferritin. Problem 984159521 Environmental allergies (Z91.09) Active confirmed She will continue to use the nondrowsy antihistamine and fluticasone for allergies to pollen season. Problem 123134344 Panic attacks (F41.0) Active confirmed We discussed her taking sertraline. She is going to think it over and make a decision. Problem 970604897 Acute bilateral low back pain with sciatica, sciatica laterality unspecified (M54.40) Active confirmed She tolerates dexamethasone well. Her back pain is much improved. She will finish the prescription and then use ibuprofen and Tylenol. Problem 464853152 Scoliosis of lumbar spine, unspecified scoliosis type (M41.9) Active confirmed Her back pain is minimal, but intermittent. Problem 866050885 Elbow fracture, left, sequela (S42.402S) Active confirmed She will continue with the orthopedic surgeon and the physical therapist. She has undergone surgery. Her recovery has been slow. Vital Signs Heart Rate 74 /min 02/09/2024 Temperature 97.0 degrees Fahrenheit 02/09/2024 Blood pressure diastolic 80 mm Hg 02/09/2024 Height 63 in 02/09/2024 Blood pressure systolic 120 mm Hg 02/09/2024 Weight 156 lbs 02/09/2024 BMI 27.63 kg/m2 02/09/2024 Encounters Encounter Location Date Provider Diagnosis Gaurav Foreman III, MD [address] [place] [address] [address] [place], [place] [address] 02/09/2024 Gaurav Foreman Elbow fracture, left , sequela S42.402S ; Microcytic anemia D50.9 ; Panic attacks F41.0 ; Acute bilateral low back pain with sciatica, sciatica laterality unspecified M54.40 ; Anxiety F41.9 ; Environmental allergies Z91.09 and Overweight E66.3 Gaurav Foreman III, MD [address] [place] [address] [address] [place], [place] [address] 07/12/2024 Gaurav Foreman III, MD [address] [place] [address] [address] [place], [place] [address] 07/12/2024 Gaurav Foreman Assessments Encounter Date Diagnosis (ICD Code) Assessment Notes Treat ment Notes Treatment Clinical Notes 02/09/2024 Microcytic anemia (ICD-10 - D50.9) Her anemia has become slightly worse. She will resume taking the iron pills twice a day. Repeat blood work will be done in the near future. His reticulocytes and a ferritin. 02/09/2024 Elbow fracture, left, sequela (ICD-10 - S42.402S) She will continue with the orthopedic surgeon and the physical therapist. She has undergone surgery. Her recovery has been slow. 02/09/2024 Panic attacks (ICD-10 - F41.0) We [...] diet restricted in calories. Plan Of Treatment Pending Test Test Name Order Date PROFILE, FASTING (COMPREHENSIVE METABOLI C) 10/29/2018 PROFILE, FASTING (COMPREHENSIVE METABOLI C) 12/23/2021 PROFILE, FASTING (COMPREHENSIVE METABOLI C) 09/05/2021 PROFILE, FASTING (COMPREHENSIVE METABOLI C) 10/19/2020 PROFILE, FASTING (COMPREHENSIVE METABOLI C) 01/07/2023 PROFILE, RANDOM (COMPREHENSIVE METABOLIC ) 04/14/2023 LIPID PANEL 10/19/2020 LIPID PANEL 01/07/2023 LIPID PANEL 10/29/2018 LIPID PANEL 12/23/2021 LIPID PANEL 09/05/2021 TSH (THYROID STIMULATING HORMONE) 2018 CBC w DIFF 09/05/2021 CBC w DIFF 10/19/2020 CBC w DIFF 10/13/2023 CBC w DIFF 01/07/2023 CBC w DIFF 10/29/2018 CBC w DIFF 04/14/2023 CBC w DIFF 12/23/2021 SED RATE (ESR) 09/05/2021 RETICULOCYTE COUNT,CORRECTED 10/13/2023 RETICULOCYTE COUNT,CORRECTED 04/14/2023 URINALYSIS (UA) 08/23/2018 URINE CULTURE 08/23/2018 MAMMOGRAM DIGITAL BILATERAL DIAGNO 10/19 MAMMOGRAM DIGITAL BILATERAL SCREEN 04/14 MAMMOGRAM DIGITAL UNILATERAL WALLY RT 03/18 US BREAST RIGHT ([facility]) 019 Complete Blood Count no Diff 10/19/2024 Ferritin 10/13/2023 TSH reflex Free T4 10/19/2024 HCG Quantitative 10/19/2024 Insurance Providers Payer Name Payer Address Payer Phone Subscriber Number Group Number Insured Name Patient Relationship to Insured Coverage Start Date Coverage End Date [address] [place] [address] [id number] Elda Koch Self - patient is the insured Medical (General) History Medical History History ICD Code Anxiety F41.9 [id number] miscarriage environmental allergies overweight lumbar scoliosis with occasional low lily k pain Surgical History Surgery Date(Month/Year) Left arm Surgery- [facility] 07/08 Biopsy right breast, benign disease 01/03 21 [id number] , 3 vaginal deliveries
--- OUTSIDE RECORDS SUMMARY | 2024-10-19 14:30 | XMS_ITS ---
Author Organization Gaurav Foreman III, MD Address [address] [place] [address] Care Team Providers Care Tetryl Screen Operator Name Role Phone Gaurav Foreman Primary Care Provider [phone] REASON FOR VISIT Message Social History Sex Assigned At : Social History Observation Description Sex Assigned At Female Encounters Encounter Location Date Provider Diagnosis Gaurav Foreman III, MD [address] [place] [address] [place] [address] 07/12/2024 Gaurav Foreman Plan Of Treatment No Information Progress Notes * Elda CRABTREEDOB:1980 ([age] yo F)Acc No.[id number]:07/12/2024 Patient:?Elda CRABTREE :1980???Age:43 Y???Sex:Female Address: [place], [address] * true * Date:? Generated for Jenniei dianna/Chava/eTransmitting on:?10/19/2024 02:29 PM EST
== END 2024-10-19 12:50 | disposition home or self-care (01) ==
LOC: HO.HWS 12:04
PROVIDERS: PCP Internal Medicine Medical Oncology; Visit Provider Obstetrics & Gynecology
DX: Z01.419 Encounter for gynecological examination (general) (routine) without abnormal findings (principal); N93.9 Abnormal uterine and vaginal bleeding, unspecified
CPT/HCPCS: 99213; 99396; 99459

== ENCOUNTER 2024-11-16 12:21 | Outpatient (AMB) | payer OTHER, SELFPAY ==
--- NOTE | 2024-11-16 12:31 | A.OFFVIS_ITS ---
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 Dislocation of left radial head Left radial head fracture Fracture of distal end of left humerus Fracture of left ulna, shaft Fracture of left distal radius Atypical hyperplasia of right breast Breast calcification, right Surgical History History of surgery on arm History of lumpectomy of right breast Hx of wisdom tooth extraction Family History Maternal Grandmother Lung cancer Social History Household Members: Family Housing: House Do you presently have visiting nurse or other home services: No Alcohol intake: never Patient Tobacco Use Status: Never used Tobacco service: No Female Reproductive History Menstrual Age of Menarche: 11 Review of Systems Const All systems reviewed & are unremarkable except as noted in HPI and below Reports as per HPI and Reports no additional complaints GI Reports no additional complaints Reports no additional complaints Office Procedures Endometrial Biopsy Details: The patient was counseled regarding the indication and benefits of endometrial sampling to rule out endometrial pathology including not limited to endometrial hyperplasia or endometrial cancer and others; The alternatives (Either do nothing vs. hysteroscopy D&C) & the risks were discussed with the patient including but not limited: pain, uterine perforation, bleeding, infection, possible injury to bladder, bowel, ureter, possible need for blood transfusion with all its possible risks. The patient verbalized understanding all questions answered and signed consent. Urine test done in the office was negative The patient was placed into the dorsal lithotomy position; a speculum was inserted in the vagina. Using aseptic technique for the procedure, the cervix was cleansed with Betadine. The anterior lip of the cervix was grasped with a single tooth tenaculum. The uterus was sounded to 7 cm with a 4 mm Pipelle was used. Tissues samples were obtained and placed in formalin, in a patient labeled container and sent to the pathology department. At the end of the procedure, there was minimal bleeding noted The patient tolerated the procedure well and was discharged in good condition with the following instructions: Nothing in the vagina until the bleeding stops. No sex until the bleeding stops, to call if any of the following occurs: fever (>100.4), flu-like symptoms, abdominal pain, heavy bleeding, four smelling vaginal discharge. The patient was instructed to schedule a Follow up appointment in 2 weeks to discuss pathology results of the biopsy and treatment options. This note was generated with a voice recognition program. Some errors may have been overlooked during the review of this note. Sometimes these errors may affect the content or meaning of a given sentence. 26050-Hvdpverydjt Biopsy Assessment & Plan Assessment & Plan (1) Abnormal uterine bleeding (AUB): Comment: History of atypical ductal hyperplasia Code(s): N93.9 - Abnormal uterine and vaginal bleeding, unspecified Category: Medical Plan: EMB done, see procedure note Orders: Orders AMB Endometrial Biopsy Today N93.9 - Abnormal uterine and vaginal bleeding, unspecified Coding Level of Care Code Est Pt Level 3 (50838) Diagnoses Abnormal uterine bleeding (AUB) N93.9 CPT Codes Endometrial Biopsy - CPT: 65047-Tmspjspqxjs Biopsy ([id number])
--- OUTSIDE RECORDS SUMMARY | 2024-11-16 14:50 | XMS_ITS | Patient Health Record ---
Author Organization Gaurav Foreman III, MD Address [address] [place] [address] DR JANICE Lei [facility] [place] [address] Care Team Providers Care Oracle Database Administrator Name Role Phone Gaurav Foreman Primary Care Provider Allergies Allergen (clinical drug ingredient) Drug/Non Drug Allergy documented on EMR Reaction Allergy Type Onset Date Status Seasonale Unknown Drug Allergy Active Results Component Value Reference Range Notes XR elbow LT 2V Reviewed date:12/20/2023 01:08:45 PM Interpretation: Performing Lab: Notes/Report: [facility] [address] [place] [address] Drive [address] [place] [address] XRay Report Signed Patient: Elda Koch MR#: [id number] : 1980 Acct:[id number] Age/Sex: 43 / F ADM Date: 11/19/23 Loc: [facility] Attending Dr: Jim Luque MD Ordering Physician: Jim Luque MD Date of Service: 11/19/23 Procedure(s): XR elbow LT 2V Accession Number(s): [id number] cc: Gaurav Foreman MD; Jim Luque MD [...] MD in OV> 11/27/23 1524 DD/ TD/TT: Chief Physical Therapist: [facility] [address] [place] [address] XRay Report Signed Patient: Elda Koch MR#: [id number] : 1980 Acct:[id number] Age/Sex: 43 / F ADM Date: 11/19/23 Loc: [facility] Attending Dr: Jim Luque MD Ordering Physician: Jim Luque MD Date of Service: 11/19/23 Procedure(s): XR elb ow LT 2V Accession Number(s): [id number] cc: Gaurav Foreman MD; Jim Luque MD [...] in OV> 11/27/23 1524 DD/ 0846 TD/TT: Chief Physical Therapist: Ur Preg Test Reviewed date:12/20/2023 01:08:45 PM Interpretation: Performing Lab:[facility], [address] [place] [address] Notes/Report: Urine NEGATIVE NEGATIVE This test was developed to detect early . False negative results may occur after the 5th - 7th week of when using this test method. If clinically indicated, consider a serum hCG. Ur Preg Test Reviewed date:01/30/2024 05:19:05 AM Interpretation: Performing Lab:[facility], [address] [place] [address] Notes/Report: Urine NEGATIVE NEGATIVE This test was developed to detect early . False negative results may occur after the 5th - 7th week of when using this test method. If clinically indicated, consider a serum hCG. FL guidance in OR Reviewed date:04/03/2024 08:52:58 AM Interpretation: Performing Lab: Notes/Report: [address] [address] Fluoroscopy Report Signed Patient: Elda Koch MR#: [id number] : 1980 Acct:[id number] Age/Sex: 43 / F ADM Date: 01/27/24 Loc: [facility] Attending Dr: Jim Luque MD Ordering Physician: Jim Luque MD Date of Service: 01/27/24 Procedure(s): FL guidance in OR Accession Number(s): [id number] cc: Gaurav Foreman MD; Jim Luque MD EXAMINATION: XR FLUOROSCOPY WITH IMAGES CLINICAL INFORMATION: Hardware removal left elbow. COMPARISON: Left elbow radiographs 11/19/2023. TECHNIQUE: Fluoroscopy Supervised By: Dr. Jim Luque. Fluoroscopy Time: 0.1 minute. Cumulative Dose: 0.460 mGy. DAP: 0.98059 Gycm2. Images: 2. FINDINGS: Intraoperative fluoroscopy and [...] MD in OV> 03/05/242141 DD/ 1319 TD/TT: Chief Physical Therapist: [facility] [address] [address] Fluoroscopy Report Signed Patient: Elda Koch MR#: [id number] : 1980 Acct:[id number] Age/Sex: 43 / F ADM Date: 01/27/24 Loc: .[facility] Attending Dr: Jim Luque MD Ordering Physician: Jim Luque MD Date of Service: 01/27/24 Procedure(s): FL guidance in OR Accession Number(s): [id number] cc: Gaurav Foreman MD; Jim uLque MD EXAMINATION: XR FLUOROSCOPY WITH IMAGES CLINICAL INFORMATION: Hardware removal lef t elbow. COMPARISON: Left elbow radiograp hs 11/19/2023. TECHNIQUE: Fluoroscopy Supervis ed By: Dr. Jim Luque. Fluoroscopy Time: 0. 1 minute. Cumulative Dose: 0.4 60 mGy. DAP: 0.01100 Gycm2. Images: 2. FINDINGS: Intraoperative fluoroscopy and [...] MD in OV> 03/05/242141 DD/ 1319 TD/TT: Doper ist: MM tomosynthesis screening B I Reviewed date:05/30/2024 07:33:31 AM Interpretation: Performing Lab: Notes/Report: [address] [place] [address] Mammography Report Signed Patient: Elda Koch MR#: [id number] : 1980 Acct:[id number] Age/Sex: 43 / F ADM Date: 05/18/24 Loc: MAMMO Attending Dr: Gaurav Foreman MD Ordering Physician: Gaurav Foreman MD Results: 1Negativ e Date of Service: 05/18/24 Follow Up: 1 Year From Orig ina Mammogram Procedure(s): MM tomosynthesis screening BI Accession Number(s): [id number] cc: Gaurav Foreman MD EXAMINATION: MM SCREENING [...] 05/27/24 1349 DD/ 0745 TD/TT: 05/18/24 0801 Chief Physical Therapist: [address] [place] [address] Mammography Report Signed Patient: Elda Koch MR#: [id number] : 1980 Acct:[id number] Age/Sex: 43 / F ADM Date: 05/18/24 Loc: MAMMO Attending Dr: Gaurav Foreman MD Ordering Physician: Gaurav Foreman MD Results: 1Negativ e Date of Service: 05/18/24 Follow Up: 1 Year From Orig ina Mammogram Procedure(s): MM tomosynthesis screening BI Accession Number(s): [id number] cc: Gaurav Foreman MD EXAMINATION: MM SCREENING [...] Grande DO Signed By: <Electronically signed by rGiselda Grande DO in OV> 05/27/24 1349 DD/ 0745 TD/TT: 05/18/24 0801 Chief Physical Therapist: Complete Blood Count no Diff Reviewed date:10/24/2024 08:53:04 AM Interpretation: Performing Lab:[facility], [address] [place] [phone] Notes/Report: White Blood Count 11.2 4.8-10.8 X10*3/uL [...] 0.000 0.0-0.012 X10*3/uL TSH reflex Free T4 Reviewed date:10/24/2024 08:53:04 AM Interpretation: Performing Lab:[facility], [address] [place] [phone] Notes/Report: TSH reflex Free T4 0.91 0.32-4.0 uIU/mL HCG Quantitative Reviewed date:10/24/2024 08:53:04 AM Interpretation: Performing Lab:[facility], [address] [place] [phone] Notes/Report: HCG Quantitative < 2 Weeks post [...] alternative method (qualitative urine hCG, for example). CT NG by PCR Reviewed date:10/24/2024 08:53:04 AM Interpretation: Performing Lab:[address] [address] Notes/Report: Vaginal CT PCR NOT DETECTED Not Detect. A not detected test result does not exclude the possibility of infection because test results can be affected by improper specimen collection, concurrent antibiotic therapy, or the number of organisms in the specimen which may be below the sensitivity of the test. As with many diagnostic tests, results from the Xpert CT/NG assay should be interpreted in conjunction with other laboratory and clinical data available to the clinician. Xpert CT/NG performance has not been evaluated in patients less than 14 years of age. The assay should not be used for the evaluation of suspected sexual abuse or for other medico-legal indications. Additional testing is recommended in any circumstance when false positive or false negative results could lead to adverse medical, social or psychological consequences. NG PCR NOT DETECTED Not Detect. A not detected test result does not exclude the possibility of infection because test results can be affected by improper specimen collection, concurrent antibiotic therapy, or the number of organisms in the specimen which may be below the sensitivity of the test. As with many diagnostic tests, results from the Xpert CT/NG assay should be interpreted in conjunction with other laboratory and clinical data available to the clinician. Xpert CT/NG performance has not been evaluated in patients less than 14 years of age. The assay should not be used for the evaluation of suspected sexual abuse or for other medico-legal indications. Additional testing is recommended in any circumstance when false positive or false negative results could lead to adverse medical, social or psychological consequences. Reason For Referral No Information Social History [...] Status W/U Status Risk Notes Problem Overweight (224394531) Overweight (E66.3) Active confirmed She is slightly overweight with a body mass index of 26. I recommended stabilizing her weight at this level and then reducing and throat diet restricted in calories. Problem 93128503 Anxiety (F41.9) Active confirmed This is diminished recently. She is decided not to call a therapist. Problem 523547061 Microcytic anemia (D50.9) Active confirmed Her anemia kern s become slightly worse. She will resume taking the iron pills twice a day. Repeat blood work will be done in the near future. His reticulocytes and a ferritin. Problem 388958571 Environmental allergies (Z91.09) Active confirmed She will continue to use the nondrowsy antihistamine and fluticasone for allergies to pollen season. Problem 673977757 Panic attacks (F41.0) Active confirmed We discussed her taking sertraline. She is going to think it over and make a decision. Problem 404774680 Acute bilateral low back pain with sciatica, sciatica laterality unspecified (M54.40) Active confirmed She tolerates dexamethasone well. Her back pain is much improved. She will finish the prescription and then use ibuprofen and Tylenol. Problem 232056370 Scoliosis of lumbar spine, unspecified scoliosis type (M41.9) Active confirmed Her back pain is minimal, but intermittent. Problem 133467725 Elbow fracture, left, sequela (S42.402S) Active confirmed [...] Date Provider Diagnosis Gaurav Foreman III, MD [address] [place] [address] [place] [address] 02/09/2024 Gaurav Foreman Elbow fracture, left , sequela S42.402S ; Microcytic anemia D50.9 ; Panic attacks F41.0 ; Acute bilateral low back pain with sciatica, sciatica laterality unspecified M54.40 ; Anxiety F41.9 ; Environmental allergies Z91.09 and Overweight E66.3 Gaurav Foreman III, MD [address] [place] [address] [place] [address] 07/12/2024 Gaurav Foreman III, MD [address] [place] [address] [place] [address] 07/12/2024 Gaurav Foreman Assessments Encounter Date Diagnosis [...] Order Date PROFILE, FASTING (COMPREHENSIVE METABOLI C) 09/05/2021 PROFILE, FASTING (COMPREHENSIVE METABOLI C) 10/19/2020 PROFILE, FASTING (COMPREHENSIVE METABOLI C) 01/07/2023 PROFILE, FASTING (COMPREHENSIVE METABOLI C) 10/29/2018 PROFILE, FASTING (COMPREHENSIVE METABOLI C) 12/23/2021 PROFILE, RANDOM (COMPREHENSIVE METABOLIC ) 04/14/2023 LIPID PANEL 12/23/2021 LIPID PANEL 09/05/2021 LIPID PANEL 10/19/2020 LIPID PANEL 01/07/2023 LIPID PANEL 10/29/2018 TSH (THYROID STIMULATING HORMONE) 2018 CBC w DIFF 10/29/2018 CBC w DIFF 04/14/2023 CBC w DIFF 12/23/2021 CBC w DIFF 09/05/2021 CBC w DIFF 10/19/2020 CBC w DIFF 10/13/2023 CBC w DIFF 01/07/2023 SED RATE (ESR) 09/05/2021 RETICULOCYTE COUNT,CORRECTED 04/14/2023 RETICULOCYTE COUNT,CORRECTED 10/13/2023 URINALYSIS (UA) 08/23/2018 URINE CULTURE 08/23/2018 MAMMOGRAM DIGITAL BILATERAL DIAGNO 10/19 MAMMOGRAM DIGITAL BILATERAL SCREEN 04/14 MAMMOGRAM DIGITAL UNILATERAL WALLY RT 03/18 [facility] BREAST RIGHT [facility] 019 Ferritin 10/13/2023 Insurance Providers Payer Name Payer Address Payer Phone Subscriber Number Group Number Insured Name Patient Relationship to Insured Coverage Start Date Coverage End Date [facility] [address] [facility] [address] [facility] [address] [place] [address] [id number] Elda Koch Self - patient is the insured Medical (General) History Medical History History ICD Code Anxiety F41.9 [id number] miscarriage environmental allergies overweight lumbar scoliosis with occasional low lily k pain Surgical History Surgery Date(Month/Year) Left arm Surgery- [facility] 07/08 Biopsy right breast, benign disease 01/03 21 [id number] , 3 vaginal deliveries
--- OUTSIDE RECORDS SUMMARY | 2024-11-16 14:50 | XMS_ITS ---
Author Organization Gaurav Foreman III, MD Address [address] [place] [address] [place] [address] Care Team Providers Care Transportation Analyst Name Role Phone Gaurav Foreman Primary Care [...] Date Provider Diagnosis Gaurav Foreman III, MD [address] [place] [address] [place] [address] 04/19/2024 Gaurav Foreman Plan Of Treatment No Information Progress Notes * Elda CRABTREEDOB:1980 ([age] yo F)Acc No.[id number]:04/19/2024 Progress Notes Patient:?Elda CRABTREE Provider:?Gaurav Foreman MD :1980???Age:43 Y???Sex:Female D ate:04/19/2024 Address:[id number] Subjective: * Chief Complaints: * ???1. Annual [...] with occasional low back pain. * Surgical History:?[id number] , 3 vaginal deliveries , Biopsy right breast, benign disease 12/2020, Left arm Surgery- [facility] 07/08/2023. * Family History:?Father: adrian malone 68 [...] Tobacco Non-User?Aggressive non-smoker ???She was born and [place], [place]. She has been to [place] for 19 years. She has had 4 pregnancies, 1 miscarriage and 3 vaginal deliveries. She has 2 sons and a daughter all of whom are healthy and well. 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 * [...] Provider:?Gaurav Foreman MD Date:?10/2023 Generated for Edgar bustamante/Chava/Maria Del Rosarioitting on:?11/16/2024 02:50 PM EDT History and Physical Notes * [...]
--- OUTSIDE RECORDS SUMMARY | 2024-11-16 14:50 | XMS_ITS ---
Author Organization Gaurav Foreman III, MD Address [address] [place] [address] Care Team Providers Care International Organizer Name Role Phone Gaurav Foreman Primary Care Provider Medications Medication SIG (Take, Route, Fr equency, Duration) Notes Start Date End Date Status Bactrim DS 800-160 MG 1 tablet Orally tw ice a day for 7 days 07/12/2024 07/19/2024 Active Social History Sex Assigned At : Social History Observation Description Sex Assigned At Female Encounters Encounter Location Date Provider Diagnosis Gaurav Foreman III, MD [address] [place] [address] [place] [address] 07/12/2024 Gaurav Foreman Plan Of Treatment Medication Medication Name Sig Start Date Stop Date Notes Bactrim DS 800-160 MG 1 tablet Orally tw ice a day for 7 days 07/12/2024 07/19/2024 Progress Notes * Elda CRABTREEDOB:1980 ([age] yo F)Acc No.[id number]:07/12/2024 Patient:?Elda CRABTREE :1980???Age:43 Y???Sex:Female Address:[place], [address] * Refills? Start Bactrim DS Tablet, 800-160 MG, Orally, 14 Tablet, 1 tablet, twice a day, 7 days, Refills=0 * true * Date:? Generated for Printi dianna/Fanareshg/eTransmitting on:?11/16/2024 02:50 PM EDT
--- OUTSIDE RECORDS SUMMARY | 2024-11-16 14:51 | XMS_ITS ---
Author Organization Gaurav Foreman III, MD Address [address] [place] [address] [place] [address] Care Team Providers Care Claim Adjuster Name Role Phone Gaurav Foreman Primary Care Provider [phone] REASON FOR VISIT Message Social History Sex Assigned At : Social History Observation Description Sex Assigned At Female Encounters Encounter Location Date Provider Diagnosis Gaurav Foreman III, MD [address] [place] [address] [place] [address] 07/12/2024 Gaurav Foreman Plan Of Treatment No Information Progress Notes * Elda CRABTREEDOB:1980 ([age] yo F)Acc No.[id number]:07/12/2024 Patient:?Elda CRABTREE :1980???Age:43 Y???Sex:Female Address: [place], [address] * true * Date:? Generated for Printi ng/Artemiog/eTransmitting on:?11/16/2024 02:50 PM EDT
== END 2024-11-16 12:46 | disposition home or self-care (01) ==
LOC: HO.HWS 12:21
PROVIDERS: PCP Internal Medicine Medical Oncology; Visit Provider Obstetrics & Gynecology
DX: N93.9 Abnormal uterine and vaginal bleeding, unspecified (principal)
CPT/HCPCS: 58100; 99213

== ENCOUNTER 2024-11-16 12:21 | Outpatient (REF) | payer OTHER, SELFPAY | END 2024-11-16 12:22 | disposition home or self-care (01) | LOC: HO.LNP 12:21 | PROVIDERS: PCP Internal Medicine Medical Oncology; Visit Provider Obstetrics & Gynecology | DX: N93.9 Abnormal uterine and vaginal bleeding, unspecified (principal) | CPT/HCPCS: 58100; 88305 ==

== ENCOUNTER 2024-11-29 13:20 | Outpatient (REF) | payer OTHER, SELFPAY ==
--- NOTE | ~2024-11-29 | US_ITS ---
CLINICAL HISTORY: N93.9 - Abnormal uterine and vaginal bleeding, unspecified US pelvis transvaginal and transabdominal with Doppler Comparison: US/CO/SR - US PELVIC AND TRANSVAGINAL - 08/27/23 13:53 EST Findings: Transvaginal scanning performed. Transabdominal scanning performed. Anteverted uterus is 9.8 cm length. Redemonstrated a total 4 uterine fibroids. The largest measures 4.8 x 4 x 4.3 cm, not seen on prior. Remaining 3 fibroids appears slightly increased in size from prior measuring 3.9 x 2.6 x 3.1 cm, 1.4 x 1.3 x 1.5 cm and 1.3 x 1.3 x 1.5 cm. Scattered nabothian cysts. Abnormally thickened and heterogeneous endometrial stripe measuring 1.5 cm, slightly decreased from prior. Right ovary 3.5 x 2.4 x 1.9 cm. Mildly complex hypoechoic cysts in the right ovary measuring 1.2 x 0.7 x 1.1 cm, decreased in size from prior may reflect an involuting cyst/hemorrhagic cyst. Left ovary 5 x 4.1 x 4 cm. Mildly complex left ovarian cyst measuring 4.4 x 2.8 x 3.4 cm with scattered septations and debris. Finding is increased in size from prior. Endometrioma, enlarging hemorrhagic cyst amongst other etiologies considered. Normal color Doppler of both ovaries, spectral analysis not provided for the right ovary. No free fluid. IMPRESSION: 1. Increasing size of the uterine fibroids, with a newly identified fibroid. 2. Abnormally thickened endometrium, concerning for endometrial hyperplasia spectrum. Gynecologic consult advised. 3. Complex bilateral ovarian cysts, please see above. Consider follow-up in 6-12 weeks. This document has been electronically signed by: Jose Arreola MD on 11/29/2024 21:00:35
--- OUTSIDE RECORDS SUMMARY | 2024-11-29 16:16 | XMS_ITS ---
Author Organization Gaurav Foreman III, MD Address [address] [place] [address] [place] [address] Care Team Providers Care Wellness Program Manager Name Role Phone Gaurav Foreman Primary Care [...] Date Provider Diagnosis Gaurav Foreman III, MD [address] [place] [address] [place] [address] 04/19/2024 Gaurav Foreman Plan Of Treatment No Information Progress Notes * Elda CRABTREEDOB:1980 ([age] yo F)Acc No.[id number]:04/19/2024 Progress Notes Patient:?Elda CRABTREE Provider:?Gaurav Foreman MD :1980???Age:43 Y???Sex:Female D ate:04/19/2024 Address:[id number] Subjective: * Chief Complaints: * ???1. Annual [...] with occasional low back pain. * Surgical History:?[id number] , 3 vaginal deliveries , Biopsy right breast, benign disease 12/2020, Left arm Surgery- [facility] 07/08/2023. * Family History:?Father: adrian malone 68 [...] Tobacco Non-User?Aggressive non-smoker ???She was born and [place], [place]. She has been to [place] for 19 years. She has had 4 pregnancies, 1 miscarriage and 3 vaginal deliveries. She has 2 sons and a daughter all of whom are healthy and well. 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 * [...] Date:?10/2023 Generated for Edgar bustamante/Chava/Maria Del Rosarioitting on:?11/29/2024 04:16 PM EDT History and Physical Notes * [...]
--- OUTSIDE RECORDS SUMMARY | 2024-11-29 16:16 | XMS_ITS | Patient Health Record ---
Author Organization Gaurav Foreman III, MD Address [address] [place] [address] [place] [address] Care Team Providers Care Scale Model Maker Name Role Phone Gaurav Foreman Primary Care Provider Allergies Allergen (clinical drug ingredient) Drug/Non Drug Allergy documented on EMR Reaction Allergy Type Onset Date Status Seasonale Unknown Drug Allergy Active Results Component Value Reference Range Notes Ur Preg Test Reviewed date:12/20/2023 01:08:45 PM Interpretation: Performing Lab:[facility], [address] [place] [address] Notes/Report: Urine NEGATIVE NEGATIVE This test was developed to detect early . False negative results may occur after the 5th - 7th week of when using this test method. If clinically indicated, consider a serum hCG. Ur Preg Test Reviewed date:01/30/2024 05:19:05 AM Interpretation: Performing Lab:[facility], [address] [place] [address] Notes/Report: Urine NEGATIVE NEGATIVE This test was developed to detect early . False negative results may occur after the 5th - 7th week of when using this test method. If clinically indicated, consider a serum hCG. FL guidance in OR Reviewed date:04/03/2024 08:52:58 AM Interpretation: Performing Lab: Notes/Report: [address] [place] [address] Fluoroscopy Report Signed Patient: Elda Koch MR#: [id number] : 1980 Acct:[id number] Age/Sex: 43 / F ADM Date: 01/27/24 Loc: .SSS Attending Dr: Jim Luque MD Ordering Physician: Jim Luque MD Date of Service: 01/27/24 Procedure(s): FL guidance in OR Accession Number(s): [id number] cc: Gaurav Foreman MD; Jim Luque MD EXAMINATION: XR FLUOROSCOPY WITH IMAGES CLINICAL INFORMATION: Hardware removal left elbow. COMPARISON: Left elbow radiographs 11/19/2023. TECHNIQUE: Fluoroscopy Supervised By: Dr. Jim Luque. Fluoroscopy Time: 0.1 minute. Cumulative Dose: 0.460 mGy. DAP: 0.47475 Gycm2. Images: 2. FINDINGS: Intraoperative fluoroscopy and [...] signed by Zackery Weir MD in OV> 03/05/242 DD/ 1319 TD/TT: Sound Equipment Mechanic: [place] [id number] Fluoroscopy Report Signed Patient: Elda Koch MR#: [id number] : 1980 Acct:[id number] Age/Sex: 43 / F ADM Date: 01/27/24 Loc: .SSS Attending Dr: Jim Luque MD Ordering Physician: Jim Luque MD Date of Service: 01/27/24 Procedure(s): FL guidance in OR Accession Number(s): [id number] cc: Gaurav Foreman MD; Jim Luque MD EXAMINATION: XR FLUOROSCOPY WITH IMAGES CLINICAL INFORMATION: Hardware removal lef t elbow. COMPARISON: Left elbow radiograp hs 11/19/2023. TECHNIQUE: Fluoroscopy Supervis ed By: Dr. Jim Luque. Fluoroscopy Time: 0. 1 minute. Cumulative Dose: 0.4 60 mGy. DAP: 0.31457 Gycm2. Images: 2. FINDINGS: Intraoperative fluoroscopy and [...] signed by Zackery Weir MD in OV> 03/05/24 2142 DD/ 1319 TD/TT: Window Installation Subcontractor ist: SS MM tomosynthesis screening B I Reviewed date:05/30/2024 07:33:31 AM Interpretation: Performing Lab: Notes/Report: [facility] [address] [place] [address] Mammography Report Signed Patient: Elda Koch MR#: [id number] : 1980 Acct:[id number] Age/Sex: 43 / F ADM Date: 05/18/24 Loc: CARMEN.MAMMO Attending Dr: Gaurav Foreman MD Ordering Physician: Gaurav Foreman MD Results: 1Negativ e Date of Service: 05/18/24 Follow Up: 1 Year From Orig ina Mammogram Procedure(s): MM tomosynthesis screening BI Accession Number(s): [id number] cc: Gaurav Foreman MD EXAMINATION: MM SCREENING [...] Griselda Grande DO 05/27/2024 01:49 PM EDT RP Dictated By: Griselda Grande DO Signed By: <Electronically signed by Griselda Grande DO in OV> 05/27/24 1349 DD/ 0745 TD/TT: 05/18/24 0801 Sound Equipment Mechanic: [place] [facility]'s [address] [place] [address] Mammography Report Signed Patient: Elda Koch MR#: [id number] : 1980 Acct:[id number] Age/Sex: 43 / F ADM Date: 05/18/24 Loc: MAMMO Attending Dr: Gaurav Foreman MD Ordering Physician: Gaurav Foreman MD Results: 1Negativ e Date of Service: 05/18/24 Follow Up: 1 Year From Orig ina Mammogram Procedure(s): MM tomosynthesis screening BI Accession Number(s): [id number] cc: Gaurav Foreman MD EXAMINATION: MM SCREENING [...] Griselda Grande DO 05/27/2024 01:49 PM EDT RP Dictated By: Griselda Grande DO Signed By: <Electronically signed by Griselda Grande DO in OV> 05/27/24 1349 DD/ 0745 TD/TT: 05/18/24 0801 Sound Equipment Mechanic: Complete Blood Count no Diff Reviewed date:10/24/2024 08:53:04 AM Interpretation: Performing Lab:[address] [address] Notes/Report: White Blood Count 11.2 4.8-10.8 X10*3/uL [...] T4 Reviewed date:10/24/2024 08:53:04 AM Interpretation: Performing Lab:[address] [address] Notes/Report: TSH reflex Free T4 0.91 0.32-4.0 uIU/mL HCG Quantitative Reviewed date:10/24/2024 08:53:04 AM Interpretation: Performing Lab:[address] [address] Notes/Report: HCG Quantitative < 2 Weeks post [...] PCR Reviewed date:10/24/2024 08:53:04 AM Interpretation: Performing Lab:[address] [address] Notes/Report: Vaginal CT PCR NOT DETECTED Not [...] to adverse medical, social or psychological consequences. Pathology (Not yet reviewed by provider) Interpretation: Performing Lab:[facility], [address] [place] [phone] Notes/Report: ---- Name: Elda Koch Age/Sex: 44/F : 1980 Unit#: [id number] Attend Dr: Brian Valdes MD Re11/16/24 Status : [facility] REF Location: [facility] Disch: ---- SPEC : [id number] RECD : 11/17/24 STATUS: JONATHAN ORTEGA NUM: [id number] SHERICE: 11/16/24-13[address] [facility] [address]: Brian Valdes MD ENTERED: 11/17/24-06 44 SP TYPE: Surgical OTHR DR: Gaurav Foreman MD ORDERED: HE Stain/2, Gross Micro L4 Diagnosis Endometrium, biopsy: Disordered proliferative endometrium; no atypia or hyperplasia identified. Clinical History AUB Microscopic Description Microscopic sections reviewed. Material Received EMB Gross Description Received in formalin labeled ?EMB? are multiple soft, congested and hemorrhagic spangler-brown irregular tissue fragments along with scant mucus and blood aggregating 2.0 x 1.5 x 0.5 cm, submitted in toto in a cassette labeled A. CEDS Copies To: Gaurav Foreman MD [address] [place] [address] Brian Valdes MD [facility] [address] [place] [address] [place] [address] ---- Signed (signature on file) Asad Perea MD 11/18/24 1539 ---- END OF REPORT Reason For Referral No Information Social History [...] Status W/U Status Risk Notes Problem Overweight (449717444) Overweight (E66.3) Active confirmed She is slightly overweight with a body mass index of 26. I recommended stabilizing her weight at this level and then reducing and throat diet restricted in calories. Problem 28264485 Anxiety (F41.9) Active confirmed This is diminished recently. She is decided not to call a therapist. Problem 078260673 Microcytic anemia (D50.9) Active confirmed Her anemia kern s become slightly worse. She will resume taking the iron pills twice a day. Repeat blood work will be done in the near future. His reticulocytes and a ferritin. Problem 733181225 Environmental allergies (Z91.09) Active confirmed She will continue to use the nondrowsy antihistamine and fluticasone for allergies to pollen season. Problem 958533224 Panic attacks (F41.0) Active confirmed We discussed her taking sertraline. She is going to think it over and make a decision. Problem 532382083 Acute bilateral low back pain with sciatica, sciatica laterality unspecified (M54.40) Active confirmed She tolerates dexamethasone well. Her back pain is much improved. She will finish the prescription and then use ibuprofen and Tylenol. Problem 198253592 Scoliosis of lumbar spine, unspecified scoliosis type (M41.9) Active confirmed Her back pain is minimal, but intermittent. Problem 829876227 Elbow fracture, left, sequela (S42.402S) Active confirmed [...] Date Provider Diagnosis Gaurav Foreman III, MD [address] [place] [address] [place] [address] 02/09/2024 Gaurav Foreman Elbow fracture, left , sequela S42.402S ; Microcytic anemia D50.9 ; Panic attacks F41.0 ; Acute bilateral low back pain with sciatica, sciatica laterality unspecified M54.40 ; Anxiety F41.9 ; Environmental allergies Z91.09 and Overweight E66.3 aGurav Foreman III, MD [address] [place] [address] [place] [address] 07/12/2024 Gaurav Foreman III, MD [address] [place] [address] [place] [address] 07/12/2024 Gaurav Foreman Assessments Encounter Date Diagnosis [...] BREAST RIGHT ([facility] 019 Ferritin 10/13/2023 Pathology 11/16/2024 Insurance Providers Payer Name Payer Address Payer Phone Subscriber Number Group Number Insured Name Patient Relationship to Insured Coverage Start Date Coverage End Date [address] [place] [phone] [id number] CarmenElda calles Self - patient is the insured Medical (General) History Medical History History ICD Code Anxiety F41.9 [id number] miscarriage environmental allergies overweight lumbar scoliosis with occasional low lily k pain Surgical History Surgery Date(Month/Year) Left arm Surgery- [facility] 07/08 Biopsy right breast, benign disease 01/03 21 [id number] , 3 vaginal deliveries
--- OUTSIDE RECORDS SUMMARY | 2024-11-29 16:16 | XMS_ITS ---
Author Organization Gaurav Foreman III, MD Address [address] [address] Care Team Providers Care Animal Groomer Name Role Phone Gaurav Foreman Primary Care Provider [phone] REASON FOR VISIT Message Social History Sex Assigned At : Social History Observation Description Sex Assigned At Female Encounters Encounter Location Date Provider Diagnosis Gaurav Foreman III, MD [address] [place] [address] [place] [address] 07/12/2024 Gaurav Foreman Plan Of Treatment No Information Progress Notes * Elda CRABTREEDOB:1980 ([age] yo F)Acc No.[id number]:07/12/2024 Patient:?Elda CRABTREE :1980???Age:43 Y???Sex:Female Address: [place], [address] * true * Date:? Generated for Printi ng/Fanareshg/eTransmitting on:?11/29/2024 04:16 PM EDT
--- OUTSIDE RECORDS SUMMARY | 2024-11-29 16:16 | XMS_ITS ---
Author Organization Gaurav Foreman III, MD Address [address] [place] [address] Care Team Providers Care Correctional Guard Name Role Phone Gaurav Foreman Primary Care Provider Medications Medication SIG (Take, Route, Fr equency, Duration) Notes Start Date End Date Status Bactrim DS 800-160 MG 1 tablet Orally tw ice a day for 7 days 07/12/2024 07/19/2024 Active Social History Sex Assigned At : Social History Observation Description Sex Assigned At Female Encounters Encounter Location Date Provider Diagnosis Gaurav Foreman III, MD [address] [place] [address] [place] [address] 07/12/2024 Gaurav Foreman Plan Of Treatment Medication Medication Name Sig Start Date Stop Date Notes Bactrim DS 800-160 MG 1 tablet Orally tw ice a day for 7 days 07/12/2024 07/19/2024 Progress Notes * Elda CRABTREEDOB:1980 ([age] yo F)Acc No.[id number]:07/12/2024 Patient:?Elda CRABTREE :1980???Age:43 Y???Sex:Female Address:[place], [address] * Refills? Start Bactrim DS Tablet, 800-160 MG, Orally, 14 Tablet, 1 tablet, twice a day, 7 days, Refills=0 * true * Date:? Generated for Printi ng/Fanareshg/eTransmitting on:?11/29/2024 04:16 PM EDT
== END 2024-11-29 13:21 | disposition home or self-care (01) ==
LOC: HO.US 13:20
PROVIDERS: PCP Internal Medicine Medical Oncology; Visit Provider Obstetrics & Gynecology
DX: N93.9 Abnormal uterine and vaginal bleeding, unspecified (principal)
CPT/HCPCS: 76830; 76856

== ENCOUNTER → 2024-11-29 13:21 | Outpatient (BNV) | payer OTHER, SELFPAY | PROVIDERS: PCP Internal Medicine Medical Oncology; Visit Provider Radiology Diagnostic Radiology | DX: D25.9 Leiomyoma of uterus, unspecified (principal); N83.201 Unspecified ovarian cyst, right side; N83.202 Unspecified ovarian cyst, left side | CPT/HCPCS: 76830; 76856 ==

== ENCOUNTER 2024-12-08 11:26 | Outpatient (AMB) | payer OTHER, SELFPAY ==
--- NOTE | 2024-12-08 11:27 | MHC.OFFVIS ---
Intake Visit Reasons: EMB results Ground Operations Superintendent: Ground Operations Superintendent Present Accompanied by: Self / Same As Patient Allergies No Known Allergies Allergy (Mild, Verified 12/08/24 11:33) NOT APPLICABLE HPI Comments Details: The patient is presenting for follow-up to discuss the results of her abnormal uterine bleeding workup and options of treatment. The following workup was done.: H&H= 9.4/31.2 TSH, hCG, GC and chlamydia were negative. Endometrial biopsy pathology showed the following: Disordered proliferative endometrium; no atypia or hyperplasia identified Co testing was done in 08/08 was negative. Mammogram was negative. 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 Dislocation of left radial head Left radial head fracture Fracture of distal end of left humerus Fracture of left ulna, shaft Fracture of left distal radius Atypical hyperplasia of right breast Breast calcification, right Surgical History History of surgery on arm History of lumpectomy of right breast Hx of wisdom tooth extraction Family History Maternal Grandmother Lung cancer Social History Household Members: Family Housing: House Do you presently have visiting nurse or other home services: No Alcohol intake: never Patient Tobacco Use Status: Never used Tobacco service: No Female Reproductive History Menstrual Age of Menarche: 11 Review of Systems Const All systems reviewed & are unremarkable except as noted in HPI and below Reports as per HPI and Reports no additional complaints GI Reports no additional complaints Reports no additional complaints Assessment & Plan Assessment & Plan (1) Abnormal uterine bleeding (AUB): Comment: History of atypical ductal hyperplasia Code(s): N93.9 - Abnormal uterine and vaginal bleeding, unspecified Category: Medical Plan: Discussed with the patient the results of the work up done and options of treatment including control pills, Mirena IUD (both are associated with a minimal increase in the risk of breast cancer) endometrial ablation and hysterectomy. All pros, cons, risks and benefits if each option was discussed with the patient and the patient decided to go ahead with definitive surgical management. Discussed with the patient the different types of hysterectomies including, vaginal, laparoscopic assisted vaginal, robotic assisted laparoscopic,& abdominal with BSO. All pros, cons, r/b of each approach were discussed the patient including evidence that morbidity is less and recovery is shorter with minimally invasive approaches to hysterectomy. Discussed with the patient the lack of availability of the robot DaVinci robot and/or minimally invasive coat room attendant specialist at [facility]. The patient was referred to [facility] minimally invasive steam and power supervisor surgery. Instructed the patient to call our office back in case a referral appointment is not scheduled, missed or canceled so that we will assist on rescheduling another appointment, the patient verbalized understanding agreed with the plan. (2) Uterine myoma: Code(s): D25.9 - Leiomyoma of uterus, unspecified Category: Medical Plan: Discussed with the patient the findings on pelvic ultrasound & the risk of myosarcoma; in addition reviewed with the patient that malignancy and pre malignancy cannot be ruled out without hysterectomy for pathological evaluation ; furthermore, explained to the patient the limitation of pelvic ultrasound and endometrial biopsy in the setting. Discussed with the patient the typical symptoms that are caused by myomas including but not limited to pelvic pain, pressure symptoms, abnormal uterine bleeding. In addition discussed with the patient options of treatment for myomas including: Serial ultrasounds periodically to follow-up on the size of the myoma while targeting the treatment against fibroids related symptoms ( control pills, Mirena IUD, progesterone treatment, GnRH agonist/antagonist, uterine artery embolization or endometrial ablation) versus surgical treatment including hysterectomy and or myomectomy. All pros and cons, risks and benefits of all options were discussed with the patient. The patient decided to proceed with definitive surgical management. (3) Complex ovarian cyst: Comment: Bilateral persistent Code(s): N83.299 - Other ovarian cyst, unspecified side Category: Medical Plan: Discussed with the patient the complex ovarian cyst by ultrasound. Discussed with the patient the Ultrasound findings, the main limitation of transvaginal ultrasonography alone as a diagnostic tool to distinguish benign from malignant masses relates to its lack of specificity and low positive predictive value for cancer. The differential diagnosis discussed with the patient includes the following but not limited to: benign and malignant gynecological and non-gynecological causes. Laboratory evaluation include UPT and GC/CT , serum tumor marker CA 125 . Discussed with the patient options of treatment , in case CA 125 is not elevated, including laparoscopy ovarian cystectomy/oophorectomy vs. expectant management with repeat US in repeating pelvic US in 6-12 weeks from previous US. All pros, cons, risks and benefits of each approach were discussed with the patient including but not limited to a delay in the diagnosis and treatment of ovarian cancer affecting the prognosis; The patient decided to go ahead with surgical management Coding Level of Care Code Est Pt Level 3 (00782) Diagnoses Abnormal uterine bleeding (AUB) N93.9 Uterine myoma D25.9 Complex ovarian cyst N83.299
--- OUTSIDE RECORDS SUMMARY | 2024-12-08 13:43 | XMS_ITS | Patient Health Record ---
Author Organization Gaurav Foreman III, MD Address [address] [place] [address] [place] [address] Care Team Providers Care Cable Tool Operator Name Role Phone Gaurav Foreman Primary Care Provider [phone] Allergies Allergen (clinical drug ingredient) Drug/Non Drug Allergy documented on EMR Reaction Allergy Type Onset Date Status Seasonale Unknown Drug Allergy Active Results Component Value Reference Range Notes Ur Preg Test Reviewed date:12/20/2023 01:08:45 PM Interpretation: Performing Lab:[facility], [address] [place] [phone] Notes/Report: Urine NEGATIVE NEGATIVE This test was developed to detect early . False negative results may occur after the 5th - 7th week of when using this test method. If clinically indicated, consider a serum hCG. Ur Preg Test Reviewed date:01/30/2024 05:19:05 AM Interpretation: Performing Lab:[facility], [address] [place] [phone] Notes/Report: Urine NEGATIVE NEGATIVE This test was developed to detect early . False negative results may occur after the 5th - 7th week of when using this test method. If clinically indicated, consider a serum hCG. FL guidance in OR Reviewed date:04/03/2024 08:52:58 AM Interpretation: Performing Lab: Notes/Report: [address] [place] [address] Fluoroscopy Report Signed Patient: Elda Koch MR#: [id number] : 1980 Acct:[id number] Age/Sex: 43 / F ADM Date: 01/27/24 Loc: .SSS Attending Dr: Jim Luque MD Ordering Physician: Jim Luque MD Date of Service: 01/27/24 Procedure(s): FL guidance in OR Accession Number(s): [id number] cc: Gaurav Foreman MD; Jim Luque MD EXAMINATION: XR FLUOROSCOPY WITH IMAGES CLINICAL INFORMATION: Hardware removal left elbow. COMPARISON: Left elbow radiographs 11/19/2023. TECHNIQUE: Fluoroscopy Supervised By: Dr. Jim Luque. Fluoroscopy Time: 0.1 minute. Cumulative Dose: 0.460 mGy. DAP: 0.97215 Gycm2. Images: 2. FINDINGS: Intraoperative fluoroscopy and [...] Weir MD Signed By: <Electronically signed by Zcakery Weir MD in OV> 03/05/242 DD/ 1319 TD/TT: Digital Media Manager: [place] [address] Fluoroscopy Report Signed Patient: Elda Koch MR#: [id number] : 1980 Acct:[id number] Age/Sex: 43 / F ADM Date: 01/27/24 Loc: .SSS Attending Dr: Jim Luque MD Ordering Physician: Jim Luque MD Date of Service: 01/27/24 Procedure(s): FL guidance in OR Accession Number(s): [id number] cc: Gaurav Foreman MD; Jim Luque MD EXAMINATION: XR FLUOROSCOPY WITH IMAGES CLINICAL INFORMATION: Hardware removal lef t elbow. COMPARISON: Left elbow radiograp hs 11/19/2023. TECHNIQUE: Fluoroscopy Supervis ed By: Dr. Jim Luque. Fluoroscopy Time: 0. 1 minute. Cumulative Dose: 0.4 60 mGy. DAP: 0.42068 Gycm2. Images: 2. FINDINGS: Intraoperative fluoroscopy and [...] in OV> 03/05/24 2142 DD/ 1319 TD/TT: Fashion Marketer ist: SS MM tomosynthesis screening B I Reviewed date:05/30/2024 07:33:31 AM Interpretation: Performing Lab: Notes/Report: [facility] [address] [place] [address] Mammography Report Signed Patient: Elda Koch MR#: [id number] : 1980 Acct:[id number] Age/Sex: 43 / F ADM Date: 05/18/24 Loc: CARMEN.MAMMO Attending Dr: Gaurav Foreman MD Ordering Physician: Gaurav Foreman MD Results: 1Negativ e Date of Service: 05/18/24 Follow Up: 1 Year From Orig ina Mammogram Procedure(s): MM tomosynthesis screening BI Accession Number(s): [id number] cc: Gaurav Foreman MD EXAMINATION: MM SCREENING [...] 05/27/24 1349 DD/ 0745 TD/TT: 05/18/24 0801 Digital Media Manager: [place] [facility] [address] [place] [address] Mammography Report Signed Patient: Elda Koch MR#: [id number] : 1980 Acct:[id number] Age/Sex: 43 / F ADM Date: 05/18/24 Loc: MAMMO Attending Dr: Gaurav Foreman MD Ordering Physician: Gaurav Foreman MD Results: 1Negativ e Date of Service: 05/18/24 Follow Up: 1 Year From Orig ina Mammogram Procedure(s): MM tomosynthesis screening BI Accession Number(s): [id number] cc: Gaurav Foreman MD EXAMINATION: MM SCREENING [...] 05/27/24 1349 DD/ 0745 TD/TT: 05/18/24 0801 Digital Media Manager: Complete Blood Count no Diff Reviewed date:10/24/2024 08:53:04 AM Interpretation: Performing Lab:[address] [address] Notes/Report: White Blood Count 11.2 4.8-10.8 X10*3/uL [...] T4 Reviewed date:10/24/2024 08:53:04 AM Interpretation: Performing Lab:[address] [address] Notes/Report: TSH reflex Free T4 0.91 0.32-4.0 uIU/mL HCG Quantitative Reviewed date:10/24/2024 08:53:04 AM Interpretation: Performing Lab:[address] [address] Notes/Report: HCG Quantitative < 2 Weeks post [...] PCR Reviewed date:10/24/2024 08:53:04 AM Interpretation: Performing Lab:[address] [address] Notes/Report: Vaginal CT PCR NOT DETECTED Not [...] (Not yet reviewed by provider) Interpretation: Performing Lab:[facility], [address] [place] [phone] Notes/Report: ---- Name: Elda Koch Age/Sex: 44/F : 1980 Unit#: [id number] Attend Dr: Brian Valdes MD Re11/16/24 Status : [facility] REF Location: [facility] Disch: ---- SPEC : [id number] RECD : 11/17/24 STATUS: JONATHAN ORTEGA NUM: [id number] SHERICE: 11/16/24-1317 [facility] [address]: Brian Valdes MD ENTERED: 11/17/24-06 [...] CEDS Copies To: Gaurav Foreman MD [address] [facility] [place] [address] Brian Valdes MD [facility] [address] [place] [address] ---- Signed (signature on file) Asad Perea MD 11/18/24 1539 ---- END OF REPORT US pelvic and transvaginal ( Not yet reviewed by provider) Interpretation: Performing Lab: Notes/Report: [address] [address] Ultrasound Report Signed Patient: Elda Koch MR#: [id number] : 1980 Acct:[id number] Age/Sex: 44 / F ADM Date: 11/29/24 Loc: .US Attending Dr: Brian Valdes MD Ordering Physician: Brian Valdes MD Date of Service: 11/29/24 Procedure(s): US pelvic and transvaginal Accession Number(s): [id number] cc: Gaurav Foreman MD; Brian Valdes MD CLINICAL HISTORY: N93.9 - Abnormal uterine and vaginal bleeding, unspecified US pelvis transvaginal and transabdominal with Doppler Comparison: US/NH/SR - US PELVIC AND TRANSVAGINAL - 08/27/23 13:53 EST Findings: Transvaginal scanning performed. Transabdominal scanning performed. Anteverted uterus is 9.8 cm length. Redemonstrated a total 4 uterine fibroids. The largest measures 4.8 x 4 x 4.3 cm, not seen on prior. Remaining 3 fibroids appears slightly increased in size from prior measuring 3.9 x 2.6 x 3.1 cm, 1.4 x 1.3 x 1.5 cm and 1.3 x 1.3 x 1.5 cm. Scattered nabothian cysts. Abnormally thickened and heterogeneous endometrial stripe measuring 1.5 cm, slightly decreased from prior. Right ovary 3.5 x 2.4 x 1.9 cm. Mildly complex hypoechoic cysts in the right ovary measuring 1.2 x 0.7 x 1.1 cm, decreased in size from prior may reflect an involuting cyst/hemorrhagic cyst. Left ovary 5 x 4.1 x 4 cm. Mildly complex left ovarian cyst measuring 4.4 x 2.8 x 3.4 cm with scattered septations and debris. Finding is increased in size from prior. Endometrioma, enlarging hemorrhagic cyst amongst other etiologies considered. Normal color Doppler of both ovaries, spectral analysis not provided for the right ovary. No free fluid. IMPRESSION: 1. Increasing size of the uterine fibroids, with a newly identified fibroid. 2. Abnormally thickened endometrium, concerning for endometrial hyperplasia spectrum. Gynecologic consult advised. 3. Complex bilateral ovarian cysts, please see above. Consider follow-up in 6-12 weeks. This document has been electronically signed by: Jose Arreola MD on 11/29/2024 21:00:35 Dictated By: Jose Arreola MD Signed By: <Electronically signed by Jose Arreola MD in OV> 11/29/242100 DD/ 99 TD/TT: 11/29/242099 Digital Media Manager: [address] [address] Ultrasound Report Signed Patient: Elda Koch MR#: [id number] : 1980 Acct:[id number] Age/Sex: 44 / F ADM Date: 11/29/24 Loc: .US Attending Dr: Brian Valdes MD Ordering Physician: Brian Valdes MD Date of Service: 11/29/24 Procedure(s): US pel stacy and transvaginal Accession Number(s): [id number] cc: Gaurav Foreman MD; Brian Valdes MD CLINICAL HISTORY: N9 3.9 - Abnormal uterine and vaginal bleeding, unspecified US pelvis transvagin al and transabdominal with Doppler Comparison: US/NH/SR - US PELVIC AND TRANSVAGINAL - 08/27/23 13:53 EST Findings: Transvaginal scannin g performed. Transabdominal scanning performed. Anteverted uterus is 9.8 cm length. Redemonstrated a tot al 4 uterine fibroids. The largest measures 4.8 x 4 x 4.3 cm, not seen on prior. Remaining 3 fibroids appears slightly increased in size from prior measuring 3.9 x 2.6 x 3.1 cm, 1.4 x 1.3 x 1.5 cm and 1.3 x 1.3 x 1.5 cm. Scattered nabothian cysts. Abnormally thickened and heterogeneous endometrial stripe measuring 1.5 cm, slightly decreas ed from prior. Right ovary 3.5 x 2. 4 x 1.9 cm. Mildly complex hypoechoic cysts in the right ovary measurin g 1.2 x 0.7 x 1.1 cm, decreased in size from prior may reflect an involutin g cyst/hemorrhagic cyst. Left ovary 5 x 4.1 x 4 cm. Mildly complex left ovarian cyst measuring 4.4 x 2.8 x 3.4 cm with scattered septations and debris. Finding is increased in size from prior. Endometrioma, enlarging hemorrhagic cyst amongst other etiologies considered. Normal color Doppler of both ovaries, spectral analysis not provided for the right ovary. No free fluid. IMPRESSION: 1. Increasing size o f the uterine fibroids, with a newly identified fibroid. 2. Abnormally thicke sundeep endometrium, concerning for endometrial hyperplasia spectrum . Gynecologic consult advised. 3. Complex bilateral ovarian cysts, please see above. Consider follow-up in 6-12 weeks. This document has be en electronically signed by: Jose Arreola MD on 11/29/2024 21:00:35 Dictated By: Jose Arreola MD Signed By: <Electronically signed by Jose Arreola MD in OV> 11/29/242100 DD/ 99 TD/TT: 11/29/242099 Digital Media Manager: Reason For Referral No Information Social History [...] Status W/U Status Risk Notes Problem Overweight (936602274) Overweight (E66.3) Active confirmed She is slightly overweight with a body mass index of 26. I recommended stabilizing her weight at this level and then reducing and throat diet restricted in calories. Problem 42066069 Anxiety (F41.9) Active confirmed This is diminished recently. She is decided not to call a therapist. Problem 230383650 Microcytic anemia (D50.9) Active confirmed Her anemia kern s become slightly worse. She will resume taking the iron pills twice a day. Repeat blood work will be done in the near future. His reticulocytes and a ferritin. Problem 055609612 Environmental allergies (Z91.09) Active confirmed She will continue to use the nondrowsy antihistamine and fluticasone for allergies to pollen season. Problem 257347397 Panic attacks (F41.0) Active confirmed We discussed her taking sertraline. She is going to think it over and make a decision. Problem 528374632 Acute bilateral low back pain with sciatica, sciatica laterality unspecified (M54.40) Active confirmed She tolerates dexamethasone well. Her back pain is much improved. She will finish the prescription and then use ibuprofen and Tylenol. Problem 802255619 Scoliosis of lumbar spine, unspecified scoliosis type (M41.9) Active confirmed Her back pain is minimal, but intermittent. Problem 122663725 Elbow fracture, left, sequela (S42.402S) Active confirmed [...] Date Provider Diagnosis Gaurav Foreman III, MD [address] [place] [address] [place] [address] 02/09/2024 Gaurav Foreman Elbow fracture, left , sequela S42.402S ; Microcytic anemia D50.9 ; Panic attacks F41.0 ; Acute bilateral low back pain with sciatica, sciatica laterality unspecified M54.40 ; Anxiety F41.9 ; Environmental allergies Z91.09 and Overweight E66.3 Gaurav Foreman III, MD [address] [place] [address] DR [place], [place] [address] 07/12/2024 Gaurav Foreman III, MD [address] [place] [address] [place] [address] 07/12/2024 Gaurav Foreman Assessments Encounter Date Diagnosis [...] [facility] 019 Ferritin 10/13/2023 Pathology 11/16/2024 US pelvic and transvaginal 11/29/2024 Insurance Providers Payer Name Payer Address Payer Phone Subscriber Number Group Number Insured Name Patient Relationship to Insured Coverage Start Date Coverage End Date [address] [place] [phone] [id number] CarmenElda calles Self - patient is the insured Medical (General) History Medical History History ICD Code Anxiety F41.9 [id number] miscarriage environmental allergies overweight lumbar scoliosis with occasional low lily k pain Surgical History Surgery Date(Month/Year) Left arm Surgery- [facility] 07/08 Biopsy right breast, benign disease 01/03 21 [id number] , 3 vaginal deliveries
--- OUTSIDE RECORDS SUMMARY | 2024-12-08 13:43 | XMS_ITS ---
Author Organization Gaurav Foreman III, MD Address [address] [place] [address] [place] [address] Care Team Providers Care Sql Dba Name Role Phone Gaurav Foreman Primary Care [...] Encounters Encounter Location Date Provider Diagnosis Gaurav Foremna III, MD [address] [place] [address] [place] [address] 04/19/2024 Gaurav Foreman Plan Of Treatment No Information Progress Notes * Elda CRABTREEDOB:1980 ([age] yo F)Acc No.[id number]:04/19/2024 Progress Notes Patient:?Elda CRABTREE Provider:?Gaurav Foreman MD :1980???Age:43 Y???Sex:Female D ate:04/19/2024 Address:[phone] Subjective: * Chief Complaints: * ???1. Annual [...] with occasional low back pain. * Surgical History:?[id number] , 3 vaginal deliveries , Biopsy right breast, benign disease 12/2020, Left arm Surgery- [facility] 07/08/2023. * Family History:?Father: adrian malone 68 [...] Tobacco Non-User?Aggressive non-smoker ???She was born and [place], [place]. She has been to [place] for 19 years. She has had 4 pregnancies, 1 miscarriage and 3 vaginal deliveries. She has 2 sons and a daughter all of whom are healthy and well. 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 * [...] Date:?10/2023 Generated for Edgar bustamante/Chava/Maria Del Rosarioitting on:?12/08/2024 01:43 PM EDT History and Physical Notes * [...]
--- OUTSIDE RECORDS SUMMARY | 2024-12-08 13:44 | XMS_ITS ---
Author Organization Gaurav Foreman III, MD Address [address] [address] Care Team Providers Care Oil Well Pumper Name Role Phone Gaurav Foreman Primary Care [...] Provider Diagnosis Gaurav Foreman III, MD [address] [place] [address] [place] [address] 07/12/2024 Gaurav Foreman Plan Of Treatment Medication Medication Name Sig Start Date Stop Date Notes Bactrim DS 800-160 MG 1 tablet Orally tw ice a day for 7 days 07/12/2024 07/19/2024 Progress Notes * Elda CRABTREEDOB:1980 ([age] yo F)Acc No.[id number]:07/12/2024 Patient:?Elda CRABTREE :1980???Age:43 Y???Sex:Female Address:[place], [address] * Refills? Start Bactrim DS Tablet, 800-160 MG, Orally, 14 Tablet, 1 tablet, twice a day, 7 days, Refills=0 * true * Date:? Generated for Printi ng/Fanareshg/eTransmitting on:?12/08/2024 01:43 PM EDT
--- OUTSIDE RECORDS SUMMARY | 2024-12-08 13:44 | XMS_ITS ---
Author Organization Gaurav Foreman III, MD Address [address] [facility] [address] [place] [address] Care Team Providers Care Milled Rubber Tender Name Role Phone Gaurav Foreman Primary Care Provider REASON FOR VISIT Message Social History Sex Assigned At : Social History Observation Description Sex Assigned At Female Encounters Encounter Location Date Provider Diagnosis Gaurav Foreman III, MD [address] [place] [address] [place] [address] 07/12/2024 Gaurav Foreman Plan Of Treatment No Information Progress Notes * Elda CRABTREEDOB:1980 ([age] yo F)Acc No.[id number]:07/12/2024 Patient:?Elda CRABTREE :1980???Age:43 Y???Sex:Female Address: [place], [address] * true * Date:? Generated for Printi ng/Fanareshg/eTransmitting on:?12/08/2024 01:43 PM EDT
== END 2024-12-08 11:49 | disposition home or self-care (01) ==
LOC: HO.HWS 11:26
PROVIDERS: PCP Internal Medicine Medical Oncology; Visit Provider Obstetrics & Gynecology
DX: N93.9 Abnormal uterine and vaginal bleeding, unspecified (principal); D25.9 Leiomyoma of uterus, unspecified; N83.299 Other ovarian cyst, unspecified side
CPT/HCPCS: 99213

== ENCOUNTER 2025-04-25 13:21 | Outpatient (AMB) | payer OTHER, SELFPAY ==
--- OUTSIDE RECORDS SUMMARY | 2024-02-09 11:15 | XMS_ITS ---
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 Name Role Phone Gaurav Foreman Primary Care Provider [phone] Allergies Allergen (clinical drug ingredient) Drug/Non Drug Allergy documented on EMR Reaction Allergy Type Onset Date Status Seasonale Unknown Drug Allergy Active REASON FOR VISIT Fracture left elbow, Environmental allergy, Overweight, Scoliosis lumbar spine, Anemia Social History Tobacco Use: Social History Observation Description Date Details (start date - stop date) Never Smoker NA - NA Sex Assigned At : Social History Observation Description Sex Assigned At Female Tobacco Use/Smoking Question Answer Notes Patient is a nonsmoker Additional Findings: Tobacco Non-User Aggressive non-smoker Vital Signs Temperature 97.0 degrees Fahrenheit 02/09/20 24 Blood pressure systolic 120 mm Hg 02/09/20 24 Blood pressure diastolic 80 mm Hg 024 Heart Rate 74 /min 02/09/2024 Height 63 in 02/09/2024 Weight 156 lbs 02/09/2024 BMI 27.63 kg/m2 02/09/2024 Encounters Encounter Location Date Provider Diagnosis Gaurav Foreman III, MD [address] [place] [address] [place] [phone] 02/09/2024 Gaurav Foreman Elbow fracture, left , sequela S42.402S ; Microcytic anemia D50.9 ; Panic attacks F41.0 ; Acute bilateral low back pain with sciatica, sciatica laterality unspecified M54.40 ; Anxiety F41.9 ; Environmental allergies Z91.09 and Overweight E66.3 Assessments Encounter Date Diagnosis (ICD Code) Assessment Notes Treat ment Notes Treatment Clinical Notes 02/09/2024 Elbow fracture, left, sequela (ICD-10 - S42.402S) She will continue with the orthopedic surgeon and the physical therapist. She has undergone surgery. Her recovery has been slow. 02/09/2024 Microcytic anemia (ICD-10 - D50.9) Her anemia has become slightly worse. She will resume taking the iron pills twice a day. Repeat blood work will be done in the near future. His reticulocytes and a ferritin. 02/09/2024 Panic attacks (ICD-10 - F41.0) We discussed her taking sertraline. She is going to think it over and make a decision. 02/09/2024 Acute bilateral low back pain with sciatica, sciatica laterality unspecified (ICD-10 - M54.40) She tolerates dexamethasone well. Her back pain is much improved. She will finish the prescription and then use ibuprofen and Tylenol. 02/09/2024 Anxiety (ICD-10 - F41.9) This is diminished recently. She is decided not to call a therapist. 02/09/2024 Environmental allergies (ICD-10 - Z91.09) She will continue to use the nondrowsy antihistamine and fluticasone for allergies to pollen season. 02/09/2024 Overweight (ICD-10 - E66.3) She is slightly overweight with a body mass index of 26. I recommended stabilizing her weight at this level and then reducing and throat diet restricted in calories. Plan Of Treatment Next Appt Details Follow Up: As Scheduled, [place] son: OV, Annual Exam Progress Notes * Elda CRABTREEDOB:1980 ([age] yo F)Acc No.[id number]:02/09/2024 Progress Notes Patient: Elda Everett Provider: Kathleen Foreman MD :1980 A ge:43 Y S ex:Female Date:02/09/2024 Address:[phone] Subjective: * Chief Complaints: * F racture left elbowEnvironmental allergyOverweightScoliosis lumbar spineAnemia * HPI: C OVID-19 Screening: She recently had a complex fracture of the left elbow which required surgical repair. She is undergoing prolonged physical therapy to try and restore range of motion. Left arm was wrapped with compression tape today. It is painful to lift the arm to the horizon. She is otherwise medically stable. She has no other problems. She had no new complaints. Questions H ave you experienced fever, chills, cough, sore throat, shortness of breath, difficulty breathing, muscle aches, loss of taste or smell? N o H ave you been exposed to the virus within the last 10 days? N o H ave you travelled internationally in the last 10 days? N o H ave you been exposed to COVID-19 in the past? N o * ROS: G eneral/Constitutional: pain L eft elbow, otherwise only normal aches and pains.?Chills d enies. F atigue a dmits. F ever d enies. E NT: Decreased hearing d enies. R espiratory: Cough d enies. C ardiovascular: Chest pain with exertion d enies. D yspnea on exertion?denies. S hortness of breath d enies. G astrointestinal: Constipation o ccasional. D ecreased appetite d enies. D iarrhea d enies. H eartburn d enies. N ausea d enies. R ectal bleeding d enies. V omiting d enies. H ematology: bruising d enies. p etechiae d enies. S wollen glands n one have been noted. G enitourinary: Frequent urination a t night. M usculoskeletal: Muscle aches d enies. P ainful joints d enies. S ciatica d enies. W eakness d enies. S kin: Itching d enies. R chiquis d enies. S kin lesion(s)?denies. N eurologic: Difficulty speaking d enies. D izziness d enies.?Headache d enies. L ow back pain d enies. P sychiatric: Depressed mood d enies. * Medical History: * Surgical History: G 4P3Ab1 , 3 vaginal deliveries Biopsy right breast, benign disease eft arm Surgery- [facility] 07/08/2023 * Hospitalization/Major Diagno stic Procedure: D enies Past Hospitalization * Family History: F ather: alive 68 yrs, Elevated cholesterol, diagnosed with CVD. M other: alive 65 yrs, Elevated cholesterol. P aternal Grand Mother: alive, diagnosed with DM. 1 brother(s) - healthy. 2 son(s) , 1 daughter(s) - healthy. . Her brother and children are healthy and well. She is not aware of any inherited cancer family syndrome. She is not aware of any family history of substance abuse disorder, addiction, or mental illness. * Social History: T obacco Use: T obacco Use/Smoking P yessy is a n onsmoker A dditional Findings: Tobacco Non-User A ggressive non-smoker S he was born and [place], [place]. She has been to [place] for 19 years. She has had 4 pregnancies, 1 miscarriage and 3 vaginal deliveries. She has 2 sons and a daughter all of whom are healthy and well. 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 * Medications: N one * Allergies: Stefano brunner[Allergies Verified] Objective: * Vitals: H t: 63, Wt: 156, BMI:27.63, BP: 120/80, HR: 74, Temp: 97.0, Wt-k.76. * P ast Orders: Imaging:XR elbow LT 2V * Order Date 11/19/2023 07/20/2023 07/08/2023 * Lab:Ur Preg Test * Order Date 01/27/2024 12/15/2023 07/14/2023 Urine NEGATIVE (Ref Range: NEGATIVE) NEGATIVE (Ref Range: NEGATIVE) NEGATIVE (Ref Range: NEGATIVE) * Examination: G eneral Examination: GENERAL APPEARANCE: p leasant, well nourished, well developed, in no acute distress, calm and relaxed , overweight , woman. HEAD: a traumatic, normocephalic. EYES: e alejandra, perrla, anicteric, conjugate. EARS: n ormal. NOSE: s eptum intact. ORAL CAVITY: n ormal, unremarkable. NECK/THYROID: n o jugular venous distention, no carotid bruit, thyroid normal. LYMPH NODES: n o enlarged lymph nodes,spleen normal. SKIN: n o suspicious lesions, anicteric. HEART: n o clicks, gallops, murmurs, or rubs, regular rhythm, S1, S2 normal, no s3, or vascular bruits. LUNGS: c lear to auscultation . BREASTS: n ot examined. ABDOMEN: b owel sounds normal, no ascites, no organomegaly, no mass. RECTAL EXAM: n ot examined. MUSCULOSKELETAL: e xtremities unremarkable, no clubbing, cyanosis or edema, Left arm is extensively wrapped with an Shelton bandage, pain to elevation and motion of the elbow. PERIPHERAL PULSES: n ormal. NEUROLOGIC: a lert and oriented, cranial nerves 2-12 grossly intact, deep tendon reflexes 2+ symmetrical, motor strength normal upper and lower extremities, sensory exam intact. PSYCH: a lert, oriented , thought process logical, goal directed , cognitive function intact , good eye contact , speech clear. Assessment: * Assessment: 1. E lbow fracture, left, sequela - S42.402S (Primary), She will continue with the orthopedic surgeon and the physical therapist. She has undergone surgery. Her recovery has been slow. 2 . Microcytic anemia - D50.9, Her anemia has become slightly worse. She will resume taking the iron pills twice a day. Repeat blood work will be done in the near future. His reticulocytes and a ferritin. 3 . P anic attacks - F41.0, We discussed her taking sertraline. She is going to think it over and make a decision. 4 . A cute bilateral low back pain with sciatica, sciatica laterality unspecified - M54.40, She tolerates dexamethasone well. Her back pain is much improved. She will finish the prescription and then use ibuprofen and Tylenol. 5 . A nxiety - F41.9, This is diminished recently. She is decided not to call a therapist. 6 . E nvironmental allergies - Z91.09, She will continue to use the nondrowsy antihistamine and fluticasone for allergies to pollen season. 7 . O verweight - E66.3, She is slightly overweight with a body mass index of 26. I recommended stabilizing her weight at this level and then reducing and throat diet restricted in calories. Plan: * Treatment: * Procedure Codes: * Preventive Medicine: Counseling: C are goal follow-up plan: Counseling for abnormal BMI given Y es Above Normal BMI Follow-up D ietary management education, guidance, and counseling * Follow Up: A s Scheduled (Reason: OV, Annual Exam) * Images: * Sign off status: Completed true * Provider: Kathleen Foreman MD Date: 0 02/09/2024 Generated for Printi ng/Faxing/eTransmitting on: 0 04/25/2025 03:48 PM EDT History and Physical Notes * HPI (History of Present Illness) Category Sub-Category Detail Notes COVID-19 Screening Questions Have you had any new onset fever, chills, cough, congestion, sore throat, shortness of breath, muscle aches?: No Have you been exposed to the virus withi n the last 10 days?: No Have you travelled internationally in e last 10 days?: No Have you been exposed to COVID-19 in the past?: No Examination Category Sub-Category Detail Notes General Examination GENERAL APPEARANCE: pleasant , well nourished, well developed, in no acute distress, calm and relaxed , overweight , woman HEAD: atraumatic, normocep halic EYES: eomi, perrla, anicte campos, conjugate EARS: normal NOSE: septum intact NECK/THYROID: no jugular venous di stention, no carotid bruit, thyroid normal HEART: no clicks, gallops, murmurs, or rubs, regular rhythm, S1, S2 normal, no s3, or vascular bruits LUNGS: clear to auscultatio n ABDOMEN: bowel sounds normal, no ascites, no organomegaly, no mass NEUROLOGIC: alert and oriented, cranial nerves 2-12 grossly intact, deep tendon reflexes 2+ symmetrical, motor strength normal upper and lower extremities, sensory exam intact SKIN: no suspicious lesion s, anicteric PERIPHERAL PULSES: normal BREASTS: not examined MUSCULOSKELETAL: extremities unremark able, no clubbing, cyanosis or edema, Left arm is extensively wrapped with an Shelton bandage, pain to elevation and motion of the elbow LYMPH NODES: no enlarged lymph no brenda,spleen normal RECTAL EXAM: not examined PSYCH: alert, oriented , th ought process logical, goal directed , cognitive function intact , good eye contact , speech clear ORAL CAVITY: normal, unremarkable
--- OUTSIDE RECORDS SUMMARY | 2024-04-19 11:30 | XMS_ITS ---
Author Organization Gaurav Foreman III, MD Address [address] [place] [address] [address] [place] [address] Care Team Providers Care Water [employer] Systems Superintendent Name Role Phone Gaurav Foreman Primary Care Provider Allergies Allergen (clinical drug ingredient) Drug/Non Drug Allergy documented on EMR Reaction Allergy Type Onset Date Status Seasonale Unknown Drug Allergy Active REASON FOR VISIT annual exam Social History Tobacco Use: Social History Observation Description Date Details (start date - stop date) Never Smoker NA - NA Sex Assigned At : Social History Observation Description Sex Assigned At Female Tobacco Use/Smoking Question Answer Notes Patient is a nonsmoker Additional Findings: Tobacco Non-User Aggressive non-smoker Encounters Encounter Location Date Provider Diagnosis Gaurav Foreman III, MD [address] [place] [address] [place] [address] 04/19/2024 Gaurav Foreman Plan Of Treatment No Information Progress Notes * Elda CRABTREEDOB:1980 ([age] yo F)Acc No.[id number]:04/19/2024 Progress Notes Patient: Elda DÍAZ Provider: Kathleen Foreman MD :1980 A ge:43 Y S ex:Female Date:04/19/2024 Address:[phone] Subjective: * Chief Complaints: * 1 . Annual exam. * HPI: C OVID-19 Screening: Questions H ave you had any new onset fever, chills, cough, congestion, sore throat, shortness of breath, muscle aches? N o H ave you been exposed to the virus within the last 10 days? N o H ave you travelled internationally in the last 10 days? N o H ave you been exposed to COVID-19 in the past? N o * ROS: G eneral/Constitutional: pain o nly normal aches and pains. C hills d enies.?Fatigue a dmits. F ever d enies. E NT: Decreased hearing d enies. R espiratory: Cough d enies. C ardiovascular: Chest pain with exertion d enies. D yspnea on exertion?denies. S hortness of breath d enies. G astrointestinal: Constipation d enies. D ecreased appetite d enies.?Diarrhea d enies. H eartburn d enies. N ausea d enies. R ectal bleeding?denies. V omiting d enies. H ematology: bruising d enies. p etechiae d enies. S wollen glands n one have been noted. G enitourinary: Frequent urination d enies. M usculoskeletal: Muscle aches d enies. P ainful joints d enies. S ciatica d enies. W eakness d enies. S kin: Itching d enies. R chiquis d enies. S kin lesion(s)?denies. N eurologic: Difficulty speaking d enies. D izziness d enies.?Headache d enies. L ow back pain d enies. P sychiatric: Depressed mood d enies. * Medical History: A nxiety, [id number] miscarriage, Environmental allergies, Overweight, Lumbar scoliosis with occasional low back pain. * Surgical History: G 4P3Ab1 , 3 vaginal deliveries , Biopsy right breast, benign disease 12/2020, Left arm Surgery- [facility] 07/08/2023. * Family History: F ather: alive 68 [...] T obacco Use: T obacco Use/Smoking P atmario is a n onsmoker A dditional Findings: Tobacco Non-User A ggressive non-smoker S he was born and [place], [place]. She has been to [place] for 19 years. She has had 4 pregnancies, 1 miscarriage and 3 vaginal deliveries. She has 2 sons and a daughter all of whom are healthy and well. 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 * Medications: N one * Allergies: S easonale. Objective: * Vitals: * Examination: G eneral Examination: GENERAL APPEARANCE: p leasant, well nourished, well developed, in no acute distress, calm and relaxed. HEAD: a traumatic, normocephalic. EYES: e alejandra, [...] LUNGS: c lear to auscultation . BREASTS: no masses palpable bilaterally. ABDOMEN: b owel sounds normal, no ascites, no organomegaly, no mass. RECTAL EXAM: n ot examined. MUSCULOSKELETAL: e xtremities unremarkable, no clubbing, cyanosis or edema. PERIPHERAL PULSES: n ormal. NEUROLOGIC: a lert and oriented, cranial nerves 2-12 grossly intact, deep tendon reflexes 2+ symmetrical, motor strength normal upper and lower extremities, sensory exam intact. PSYCH: a lert, oriented. Assessment: Plan: * Treatment: * Images: * The named appointment provid er may or may not be the originator of this progress note, and it is not deemed complete until electronically signed by the appointment provider. Sign off status: Pending * Provider: Kathleen Foreman MD Date: 04/19/2024 Generated for Edgar bustamante/Chava/eTransmitting on: 0 04/25/2025 03:48 PM EDT History and Physical Notes * HPI (History of Present Illness) Category Sub-Category Detail Notes COVID-19 Screening Questions Have you had any new onset fever, chills, cough, congestion, sore throat, shortness of breath, muscle aches?: No Have you been exposed to the virus with n the last 10 days?: No Have you travelled internationally in [facility] last 10 days?: No Have you been exposed to COVID-19 in the past?: No Examination Category Sub-Category Detail Notes General Examination GENERAL APPEARANCE: pleasant , well nourished, well developed, in no acute distress, calm and relaxed HEAD: atraumatic, normocep halic EYES: eomi, perrla, [...] lesion s, anicteric PERIPHERAL PULSES: normal BREASTS: no masses palpable b ilaterally MUSCULOSKELETAL: extremities unremark able, no clubbing, cyanosis or edema LYMPH NODES: no enlarged lymph no brenda,spleen normal RECTAL EXAM: not examined PSYCH: alert, oriented ORAL CAVITY: normal, unremarkable
--- OUTSIDE RECORDS SUMMARY | 2024-07-12 09:10 | XMS_ITS ---
Author Organization Gaurav Foreman III, MD Address [address] [place] [address] [place] [address] Care Team Providers Care Tiller Man Name Role Phone Gaurav Foreman Primary Care Provider REASON FOR VISIT Message Social History Sex Assigned At : Social History Observation Description Sex Assigned At Female Encounters Encounter Location Date Provider Diagnosis Gaurav Foreman III, MD [address] [place] [address] [place] [address] 07/12/2024 Gaurav Foreman Plan Of Treatment No Information Progress Notes * Elda CRABTREEDOB:1980 ([age] yo F)Acc No.[id number]:07/12/2024 Patient: Elda DÍAZ :1980 A ge:43 Y S ex:Female Address[address] [place], [address] * true * Date: Generated for Printi ng/Faxing/eTransmitting on: 0 04/25/2025 03:48 PM EDT
--- OUTSIDE RECORDS SUMMARY | 2024-07-12 13:34 | XMS_ITS ---
Author Organization Gaurav Foreman III, MD Address [address] [place] [address] Care Team Providers Care Dcs Engineer Name Role Phone Gaurav Foreman Primary Care Provider Medications Medication SIG (Take, Route, Fr equency, Duration) Notes Start Date End Date Status Bactrim DS 800-160 MG 1 tablet Orally tw ice a day for 7 days 07/12/2024 07/19/2024 Active Social History Sex Assigned At : Social History Observation Description Sex Assigned At Female Encounters Encounter Location Date Provider Diagnosis Gaurav Foreman III, MD [address] [place] [address] [place] [phone] 07/12/2024 Gaurav Foreman Plan Of Treatment Medication Medication Name Sig Start Date Stop Date Notes Bactrim DS 800-160 MG 1 tablet Orally tw ice a day for 7 days 07/12/2024 07/19/2024 Progress Notes * Elda CRABTREEDOB:1980 ([age] yo F)Acc No.[id number]:07/12/2024 Patient: Elda DÍAZ :1980 A ge:43 Y S ex:Female Address: [place], [address] * Refills Start Bactrim DS Tablet, 800-160 MG, Orally, 14 Tablet, 1 tablet, twice a day, 7 days, Refills=0 * true * Date: Generated for Printi ng/Faxing/eTransmitting on: 0 04/25/2025 03:48 PM EDT
--- NOTE | 2025-04-25 13:22 | A.OFFVIS_ITS ---
Vital Signs 04/25/25 13:23 Height 5 ft 3 in Weight 158 lb BMI 28.0 BP 156/88 H Blood Pressure Location Rt brachial Position Sitting Pulse 72 Pulse Source Pulse Oximeter Pulse Oximetry (%) 99 Oxygen Delivery Method Room Air Intake Visit Reasons: Colonoscopy Screening Intake Note: New pt for initial colo screening. CC: Pt denies any GI sx or concerns at this time. No FMHx per pt. Grain And Yeast Plants Supervisor Required: No Accompanied by: Self / Same As Patient Allergies No Known Allergies Allergy (Mild, Verified 04/25/25 13:23) NOT APPLICABLE HPI HPI Colonoscopy Screening: Details: 44 year old? female with past medical history of uterine myoma, complex ovarian cysts is here today for pre colonoscopy screening.? Patient was sent to us by Dr. Loya. ? This is her first colonoscopy screening.? Patient denies any gastrointestinal symptoms in the past or at present.? Denies any personal or family history of gastrointestinal disease, colon polyps, or CRC.? Denies history of difficulty with sedation or anesthesia in the past.? Negative for history of sleep apnea.? Denies any history of cardiac, renal, pulmonary, or hepatic disease.?? No history of infectious? diseases like hepatitis A, B, C, HIV or tuberculosis.? 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 Dislocation of left radial head Left radial head fracture Fracture of distal end of left humerus Fracture of left ulna, shaft Fracture of left distal radius Atypical hyperplasia of right breast Breast calcification, right Surgical History History of surgery on arm History of lumpectomy of right breast Hx of wisdom tooth extraction Family History Maternal Grandmother Lung cancer Social History Household Members: Family Housing: House Do you presently have visiting nurse or other home services: No Alcohol intake: never Patient Tobacco Use Status: Never used Tobacco service: No Female Reproductive History Menstrual Age of Menarche: 11 Review of Systems Const Denies weight gain and Denies weight loss ENT Reports no additional complaints, Denies dysphagia and Denies odynophagia Card Reports no additional complaints Resp Reports no additional complaints GI Denies abdominal pain, Denies belching, Denies melena, Denies bloating, Denies change in bowel habits, Denies dysphagia, Denies excessive flatus, Denies dyspepsia, Denies heartburn, Denies diarrhea, Denies loose stools, Denies nausea, Denies odynophagia and Denies vomiting Musc Reports no additional complaints Neuro Reports no additional complaints Psych Reports no additional complaints Endo Reports no additional complaints Physical Exam Vital Signs: Last Vital Signs Pulse 72 04/25/25 13:23 BP 156/88 H 04/25/25 13:23 Pulse Ox 99 04/25/25 13:23 Oxygen Delivery Method Room Air 04/25/25 13:23 BMI result Body Mass Index 28.0 Const General: healthy appearing, no acute distress and well developed Nutritional Appearance: well nourished Orientation/consciousness: patient oriented x3 Resp Effort & Inspection: normal respiratory effort, able to speak in complete sentences, no tracheal deviation and symmetric chest movement Auscultation: clear to auscultation bilaterally Cardio Rate: regular rate GI Inspection: Yes normal to inspection and No distended Palpation (GI): Soft to palpation, not firm, nontender and No hepatosplenomegaly present Auscultation: normal bowel sounds General: Yes no CVA tenderness Back/Spine/Pelvis Back: no CVA tenderness Skin General skin exam: elasticity normal, turgor normal and dry skin Neuro General: patient oriented x3 Psych Appearance: grossly normal Mental Status: mental status grossly normal Assessment & Plan Assessment & Plan (1) Screen for colon cancer: Code(s): Z12.11 - Encounter for screening for malignant neoplasm of colon Plan Patient denies any GI, cardiac or respiratory symptoms.? Denies any issues with anesthesia in the past.? Denies any history of sleep apnea.? No history infectious diseases in the past or present.? Not on any anticoagulation therapy.? No family or personal history of colon cancer or polyps.? Patient denies melena, hematochezia, unintentional weight loss or ribbon like stools.? Discussed at length the pre-procedure,? prep, diet & medications as well as what to expect prior, during and after the procedure.?? Stressed the importance of good bowel prep.? Recommended the use of Vaseline or Calmoseptine OTC & baby wipes with bowel movements to promote comfort.? ?Patient verbalizes under standing and agrees to plan of care.? She was given the opportunity to ask questions and all questions answered.? We will see her after the procedure.? Medications: New bisacodyl (Dulcolax (bisacodyl)) take 4 tabs at noon the day before your colonoscopy 20 mg (4 x 5 mg) PO ONCE 4 tabs 0RF constipation 1 day Z12.11 - Encounter for screening for malignant neoplasm of colon polyethylene glycol 3350 (Miralax) As directed by gastroenterology department at [facility] 238 grams PO ONCE 238 grams 0RF Z12.11 - Encounter for screening for malignant neoplasm of colon Coding Level of Care Code New Pt Level 3 (44656) Diagnoses Screen for colon cancer Z12.11 Time Spent (min) 40 Comment 30 minutes spent with patient and additional 10 minutes spent reviewing her records
[2025-04-25 13:23] VITALS: BP 156/88; PULSE 72; O2SAT 99; BMI 28.0
--- OUTSIDE RECORDS SUMMARY | 2025-04-25 15:48 | XMS_ITS | Patient Health Record ---
Author Organization Gaurav Foreman III, MD Address [address] [place] [address] [place] [address] Care Team Providers Care Marketing Production Manager Name Role Phone Gaurav Foreman Primary Care Provider [phone] Allergies Allergen (clinical drug ingredient) Drug/Non Drug Allergy documented on EMR Reaction Allergy Type Onset Date Status Seasonale Unknown Drug Allergy Active Results Component Value Reference Range Notes MM tomosynthesis screening B I Reviewed date:05/30/2024 07:33:31 AM Interpretation: Performing Lab: Notes/Report: [address] [place] [address] Mammography Report Signed Patient: Elda Koch MR#: [id number] : 1980 Acct:[id number] Age/Sex: 43 / F ADM Date: 05/18/24 Loc: .MAMMO Attending Dr: Gaurav Foreman MD Ordering Physician: Gaurav Foreman MD Results: 1Negativ e Date of Service: 05/18/24 Follow Up: 1 Year From [facility] Mammogram Procedure(s): MM tomosynthesis screening BI Accession Number(s): [id number] cc: Gaurav Foreman MD EXAMINATION: MM SCREENING [...] 05/27/24 1349 DD/ 0745 TD/TT: 05/18/[address] Judge: [facility] [address] [place] [address] Mammography Report Signed Patient: Elda Koch MR#: [id number] : 1980 Acct:[id number] Age/Sex: 43 / F ADM Date: 05/18/24 Loc: .MAMMO Attending Dr: Gaurav Foreman MD Ordering Physician: Gaurav Foreman MD Results: 1Negativ e Date of Service: 05/18/24 Follow Up: 1 Year From [facility] ina Mammogram Procedure(s): MM tomosynthesis screening BI Accession Number(s): [id number] cc: Gaurav Foreman MD EXAMINATION: MM SCREENING [...] 05/27/24 1349 DD/ 0745 TD/TT: 05/18/[address] Judge: Complete Blood Count no Diff Reviewed date:10/24/2024 08:53:04 AM Interpretation: Performing Lab:[facility], [address] [place] [phone] Notes/Report: White Blood Count 11.2 4.8-10.8 X10*3/uL [...] T4 Reviewed date:10/24/2024 08:53:04 AM Interpretation: Performing Lab:[facility], [address] [place] [phone] Notes/Report: TSH reflex Free T4 0.91 0.32-4.0 uIU/mL HCG Quantitative Reviewed date:10/24/2024 08:53:04 AM Interpretation: Performing Lab:[facility], [address] [place] [phone] Notes/Report: HCG Quantitative < 2 Weeks post [...] PCR Reviewed date:10/24/2024 08:53:04 AM Interpretation: Performing Lab:[facility], [address] [place] [phone] Notes/Report: Vaginal CT PCR NOT DETECTED Not [...] adverse medical, social or psychological consequences. Pathology Reviewed date:02/17/2025 07:27:08 PM Interpretation: Performing Lab:[facility], [address], [place] [address] Notes/Report: ---- Name: Elda Koch Age/Sex: 44/F : 1980 Unit#: [id number] Attend Dr: Brian Valdes MD Re11/16/24 Status : DEP REF Location: [facility] Disch: ---- SPEC : [id number] RECD : 11/17/24 STATUS: JONATHAN ORTEGA NUM: [id number] SHERICE: 11/16/24-[address] [facility] DR: Brian Valdes MD ENTERED: 11/17/24- 44 SP TYPE: Surgical OTHR DR: Gaurav [...] A. CEDS Copies To: Gaurav Foreman MD [address] [place] [address], [facility] [address] [place] [address] Brian Valdes MD [facility] [address] [place] [address] ---- Signed (signature on file) Asad Perea MD 11/18/24 1539 ---- END OF REPORT US pelvic and transvaginal Reviewed date:02/17/2025 07:27:08 PM Interpretation: Performing Lab: Notes/Report: [address] [address] Ultrasound Report Signed Patient: Elda Koch MR#: [id number] : 1980 Acct:[id number] Age/Sex: 44 / F ADM Date: 11/29/24 Loc: .US Attending Dr: Brian Valdes MD Ordering Physician: Brian Valdes MD Date of Service: 11/29/24 Procedure(s): US pelvic and transvaginal Accession Number(s): [id number] cc: Gaurav Foreman MD; Brian Valdes MD CLINICAL HISTORY: N93.9 - Abnormal uterine and vaginal bleeding, unspecified US pelvis transvaginal and transabdominal with Doppler Comparison: [place]/SR - US PELVIC AND TRANSVAGINAL - 08/27/23 [...] in OV> 11/29/242100 DD/ 99 TD/TT: 11/29/242099 Circuit Court Judge: [address] [address] Ultrasound Report Signed Patient: Elda Koch MR#: [id number] : 1980 Acct:[id number] Age/Sex: 44 / F ADM Date: 11/29/24 Loc: HO.US Attending Dr: Brian Valdes MD Ordering Physician: Brian Valdes MD Date of Service: 11/29/24 Procedure(s): US pel stacy and transvaginal Accession Number(s): [id number] cc: Gaurav Foreman MD; Brian Valdes MD CLINICAL HISTORY: N9 3.9 - Abnormal uterine and vaginal bleeding, unspecified US pelvis transvagin al and transabdominal with Doppler Comparison: [place]/SR - US PELVIC AND TRANSVAGINAL - 08/27/23 [...] in OV> 11/29/242100 DD/ 99 TD/TT: 11/29/242099 Circuit Court Judge: Reason For Referral No Information Social History [...] Status W/U Status Risk Notes Problem Overweight (414235436) Overweight (E66.3) Active confirmed She is slightly overweight with a body mass index of 26. I recommended stabilizing her weight at this level and then reducing and throat diet restricted in calories. Problem 42893838 Anxiety (F41.9) Active confirmed This is diminished recently. She is decided not to call a therapist. Problem [id number] Microcytic anemia (D50.9) Active confirmed Her anemia kern s become slightly worse. She will resume taking the iron pills twice a day. Repeat blood work will be done in the near future. His reticulocytes and a ferritin. Problem 679240635 Environmental allergies (Z91.09) Active confirmed She will continue to use the nondrowsy antihistamine and fluticasone for allergies to pollen season. Problem 147977246 Panic attacks (F41.0) Active confirmed We discussed her taking sertraline. She is going to think it over and make a decision. Problem 820227045 Acute bilateral low back pain with sciatica, sciatica laterality unspecified (M54.40) Active confirmed She tolerates dexamethasone well. Her back pain is much improved. She will finish the prescription and then use ibuprofen and Tylenol. Problem 826802426 Scoliosis of lumbar spine, unspecified scoliosis type (M41.9) Active confirmed Her back pain is minimal, but intermittent. Problem 979552670 Elbow fracture, left, sequela (S42.402S) Active confirmed She will continue with the orthopedic surgeon and the physical therapist. She has undergone surgery. Her recovery has been slow. Encounters Encounter Location Date Provider Diagnosis Gaurav Foreman III, MD [address] [place] [address] [place] [address] 07/12/2024 Gaurav Foreman III, MD [address] [place] [address] [place] [address] 07/12/2024 Gaurav Foreman Plan Of Treatment Pending Test Test Name [...] 01/07/2023 SED RATE (ESR) 09/05/2021 RETICULOCYTE COUNT,CORRECTED 10/13/2023 [...] Insured Coverage Start Date Coverage End Date [facility] [address] [employer] [address] [place] [address] [id number] Elda Koch Self - patient is the insured Medical (General) History Medical History History ICD Code Anxiety F41.9 [id number] miscarriage environmental allergies overweight lumbar scoliosis with occasional low lily k pain Surgical History Surgery Date(Month/Year) Left arm Surgery- [facility] 07/08 Biopsy right breast, benign disease 01/03 21 [id number] , 3 vaginal deliveries
== END 2025-04-25 14:00 | disposition home or self-care (01) ==
LOC: HO.HGI 13:21
PROVIDERS: PCP Internal Medicine Medical Oncology; Visit Provider Nurse Practitioner Family
DX: Z01.818 Encounter for other preprocedural examination (principal); Z12.11 Encounter for screening for malignant neoplasm of colon
CPT/HCPCS: 99203